=== PATIENT | male | born 1960 | race African-American/Black ===

== ENCOUNTER → 2018-10-24 | Outpatient (CLI) | payer BC ==
--- NOTE | 2018-10-24 13:35 | XCELERA REPORT ---
[address] [address] Lower Extremity Arterial Evaluation Name: SEBLE HIGH Age: 57 yrs Gender: Male : 1960 Patient Status: Preadmit Patient Location: Study Date: 10/24/2018 11:17 AM Procedure: A color flow and duplex scan of the lower extremity arteries was performed bilaterally with velocity and waveform anaylsis. Reason For Study: PAD Ordering Physician: ETHAN HILL Performed By: Sidney Jacob Measurements and Calculations Right Left MANAGER OF CONSTRUCTION PSV 166.1 169.7 cm/sec Prox PFA PSV 151.3 113.9 cm/sec Prox SFA PSV 178.5 241.3 cm/sec Mid SFA PSV -178.5 -106.2cm/sec Dist SFA PSV -103.4 -112.4cm/sec Prox Pop A PSV 135.3 102.5 cm/sec Dist DARIUS PSV 77.1 127.3 cm/sec Dist INVESTIGATIONS MANAGER PSV 101.8 126.3 cm/sec Gerson Pedis PSV 108.7 77.3 cm/sec Right Side Arterial Evaluation Normal velocity and triphasic waveforms noted from the Common Femoral artery to the infrageniculate vessels . Ankle Brachial index not done. Left Side Arterial Evaluation Normal velocity and triphasic waveforms noted from the Common Femoral artery to the infrageniculate vessels . Ankle Brachial index not done. Interpretation Summary No hemodynamically significant lesions in the bilateral lower extremities, on duplex imaging, at rest. : ETHAN HILL > Jayant Linder
== END ==
LOC: SP 10:43
PROVIDERS: ATTEND Family Medicine Geriatric Medicine
DX: I73.9 Peripheral vascular disease, unspecified (principal)
CPT/HCPCS: 93925

== ENCOUNTER 2019-01-13 21:23 | Inpatient (IN) | payer BC, OTHER ==
[2019-01-13] MEDS ORDERED: NORMAL SALINE 1000 ML 1,000 ML IV ONE ×2 (22:16→23:09)
--- NOTE | 2019-01-13 22:34 | ER Document Report ---
ED General - General Chief Complaint: Abnormal Lab Results Stated Complaint: MD REFERRAL/ABNORMAL LABS Time Seen by Provider: 01/13/19 22:15 Primary Care Provider: EHTAN BOWIE MD [Primary Care Provider] - Follow up as needed TRAVEL OUTSIDE OF THE [place] IN LAST 30 DAYS: No - HPI Notes: Patient is a 58-year-old male that presents to the emergency department for chief complaint of hypercalcemia. Patient received a phone call from Dr. Bowie that his calcium levels were high a nd he should come to the emergency room. Patient's is providing most of the HPI. She states that 01/10 they had outpatient labs performed which showed hypercalcemia, he asked for the test to be repeated on 01/11 and the message they received was that the repeat on 01/11 was also elevated. Patient does have a history of hypercalcemia in the past. He recently had 2 extended hospitalizations for ischemic stroke and has residual left-sided deficits. His states that 8 days ago patient signed out AGAINST MEDICAL ADVICE from [facility] and since being home has had decreased ambulation and effort for recovery. Currently patient reports no new symptoms. Past Medical History: Stroke, CAD, hypertension, diabetes Past Surgical History: Reviewed in chart Social History: Daily tobacco use. Denies alcohol or drug use Family History: Reviewed and noncontributory for presenting illness Allergies: Reviewed, see documented allergy list. REVIEW OF SYSTEMS: CONSTITUTIONAL : No fever No chills No diaphoresis No recent illness EENT: No vision changes No congestion No sore throat CARDIOVASCULAR: No chest pain No palpitations RESPIRATORY: No shortness of breath No cough No difficulty breathing GASTROINTESTINAL: No abdominal pain No nausea No vomiting No diarrhea GENITOURINARY: No dysuria No hematuria No difficulty urinating MUSCULOSKELETAL: No back pain No leg pain No arm pain SKIN: No rashes No lesions LYMPHATIC: No swollen, enlarged glands. NEUROLOGICAL: No lightheadedness No headache weakness No paresthesias PSYCHIATRIC: No anxiety No depression PHYSICAL EXAMINATION: Vital signs reviewed, nursing noted reviewed. GENERAL: Well-appearing, well-nourished and in no acute distress. HEAD: Atraumatic, normocephalic. EYES: Eyes appear normal, extraocular movements intact, sclera anicteric, conjunctiva are normal. ENT: nares patent, oropharynx clear without exudates. Moist mucous membranes. NECK: Normal range of motion, supple without lymphadenopathy LUNGS: Breath sounds clear to auscultation bilaterally and equal. No wheezes rales or rhonchi. HEART: Regular rate and rhythm without murmurs ABDOMEN: Soft, nontender, normoactive bowel sounds. No rebound, guarding, or rigidity. No masses appreciated. EXTREMITIES: Nontender, good range of motion, no pitting or edema. NEUROLOGICAL: Alert, normal speech, no aphasia. left upper and lower extremity weakness compared to right but still able to move against gravity and light resistance. Sensory grossly intact on exam. PSYCH: Depressed mood, flat affect. SKIN: Warm, Dry, normal turgor, no rashes or lesions noted on exposed skin - Related Data Allergies/Adverse Reactions: No Known Allergies Allergy (Unverified 01/13/19 22:38) Past Medical History - Social History Smoking Status: Current Every Day Smoker Family History: Reviewed & Not Pertinent Physical Exam - Vital signs Vitals: Temp Pulse Resp BP Pulse Ox 97.9 F 80 20 109/67 98 01/13/19 21:30 01/13/19 21:30 01/13/19 21:30 01/13/19 21:30 01/13/19 21:30 Course - Re-evaluation Re-evalutation: 01/13/19 22:33 Vitals reviewed. Nursing notes reviewed. Patient has a flat affect and is not wanting to talk much with me. His was providing most of the HPI. Patient denies any new symptoms today stating he is just here for elevated calcium levels on outpatient labs on 01/10 and 01/1101/13/19 23:47 Patient's lab work today does show hypercalcemia. His calcium today is 14. Patient started on IV fluid resuscitation. Laboratory 01/13/19 01/13/19 01/13/19 22:15 22:15 22:15 WBC 8.6 RBC 4.55 Hgb 13.9 Hct 41.3 MCV 91 MCH 30.6 MCHC 33.8 RDW 13.4 Plt Count 310 Lymph % (Auto) 26.6 [place] % (Auto) 7.7 Eos % (Auto) 1.0 Baso % (Auto) 1.5 Absolute Neuts (auto) 5.4 Absolute Lymphs (auto) 2.3 Absolute Monos (auto) 0.7 Absolute Eos (auto) 0.1 Absolute Basos (auto) 0.1 Seg Neutrophils % 63.2 Sodium 140.2 Potassium 5.0 Chloride 104 Carbon Dioxide 24 Anion Gap 12 BUN 70 H Creatinine 3.18 H Est GFR ( Amer) 24 L Est GFR (MDRD) Non-Af 20 L Glucose 129 H Calcium 14.0 H* Total Bilirubin 0.5 Direct Bilirubin 0.3 Neonat Total Bilirubin Not Reportable Neonat Direct Bilirubin Not Reportable Neonat Indirect Bili Not Reportable AST 20 ALT 17 Alkaline Phosphatase 96 Creatine Kinase 81 Troponin I 0.021 Total Protein 8.0 Albumin 4.5 Chest X-Ray 01/13/19 22:15 IMPRESSION: Negative chest copyright 2010 [employer]- All Rights Reserved Chart review shows it was 12.1 on 12/27. Patient also is in acute renal failure today. I suspect some of his renal failure and hypercalcemia is related to poor oral intake since he has not been motivated to get up or eat much. Patient will be admitted to the hospital for further medical management. His case was discussed with Dr. Sal who accepts admission. - Vital Signs Vital signs: Temp Pulse Resp BP Pulse Ox 97.9 F 80 20 109/67 95 01/13/19 21:30 01/13/19 21:30 01/13/19 21:30 01/13/19 21:30 01/13/19 22:15 - Laboratory Result Diagrams: 01/13/19 22:15 01/13/19 22:15 Laboratory results interpreted by me: 01/13/19 22:15 BUN 70 H Creatinine 3.18 H Est GFR ( Amer) 24 L Est GFR (MDRD) Non-Af 20 L Glucose 129 H Calcium 14.0 H* - EKG Interpretation by Me Additional EKG results interpreted by me: 01/13/19 22:33 Interpreted by myself [id number]: Normal sinus rhythm, rate 71, normal axis, no ectopy, new left anterior fascicular block compared to prior Discharge - Discharge Clinical Impression: Hypercalcemia Acute renal failure Qualifiers: Acute renal failure type: unspecified Qualified Code(s): N17.9 - Acute kidney failure, unspecified Condition: Stable Disposition: ADMITTED INPATIENT Admitting Provider: Doron (Hospitalist) Unit Admitted: IMCU Referrals: ETHAN BOWIE MD [Primary Care Provider] - Follow up as needed
[2019-01-13 22:36] LABS: ABSOLUTE BASOPHILS # (AUTO) 0.1 10^3/uL (0.0-0.2); ABSOLUTE EOSINOPHILS # (AUTO) 0.1 10^3/uL (0.0-0.6); ABSOLUTE LYMPHOCYTES (AUTO) 2.3 10^3/uL (0.5-4.7); ABSOLUTE MONOCYTES (AUTO) 0.7 10^3/uL (0.1-1.4); ABSOLUTE NEUT (AUTO) 5.4 10^3/uL (1.7-8.2); BASOPHILS % (AUTO) 1.5 % (0-2); HEMATOCRIT 41.3 % (37.9-51.0); HEMOGLOBIN 13.9 g/dL (13.5-17.0); LYMPHOCYTES % (AUTO) 26.6 % (13-45); MEAN CORPUSCULAR HEMOGLOBIN 30.6 pg (27.0-33.4); MEAN CORPUSCULAR HGB CONC 33.8 g/dL (32.0-36.0); MEAN CORPUSCULAR VOLUME 91 fl (80-97); MONOCYTES % (AUTO) 7.7 % (3-13); PLATELET COUNT 310 10^3/uL (150-450); RED BLOOD COUNT 4.55 10^6/uL (4.35-5.55); RED CELL DISTRIBUTION WIDTH 13.4 % (11.5-14.0); SEGMENTED NEUTROPHILS % (AUTO) 63.2 % (42-78); TOTAL CELLS COUNTED % (AUTO) 100 %; WHITE BLOOD COUNT 8.6 10^3/uL (4.0-10.5)
[2019-01-13 22:52] LABS: ALBUMIN 4.5 g/dL (3.5-5.0); ALKALINE PHOSPHATASE 96 U/L (38-126); ANION GAP 12 (5-19); ASPARTATE AMINO TRANSFERASE 20 U/L (17-59); BILIRUBIN,DIRECT 0.3 mg/dL (0.0-0.4); BILIRUBIN,TOTAL 0.5 mg/dL (0.2-1.3); BLOOD UREA NITROGEN 70 mg/dL (7-20); CARBON DIOXIDE 24 mmol/L (22-30); CHLORIDE 104 mmol/L (98-107); CREATINE KINASE 81 U/L (55-170); GLUCOSE 129 mg/dL (75-110)
--- NOTE | 2019-01-13 23:18 | RADIOLOGY REPORT (SQ) ---
EXAM DESCRIPTION: XR CHEST 1 VIEW COMPLETED DATE/TME: 01/13/2019 22:15 CLINICAL HISTORY: 58 years, Male, generalized weakness COMPARISON: None. NUMBER OF VIEWS: 1 TECHNIQUE: Portable chest LIMITATIONS: None. FINDINGS: The heart size is normal. Lungs are clear. No pneumothorax IMPRESSION: Negative chest copyright 2010 [employer]- All Rights Reserved
--- NOTE | 2019-01-14 00:15 | EKG REPORT ---
SEVERITY:- ABNORMAL ECG - SINUS RHYTHM RBBB AND LAFB : Confirmed by: Becki Sarabia MD 14-Jan-2019 00:14:42
[2019-01-14] MEDS ORDERED: MAG HYDROX/AL HYDROX/SIMETH SUSP 30 ML UDCUP PO PRN (00:59)
[2019-01-14] MEDS ORDERED: NORMAL SALINE 1000 ML 1,000 ML IV PRN (00:59)
[2019-01-14] MEDS ORDERED: MAGNESIUM HYDROXIDE SUSP 30 ML UDCUP PO PRN (00:59)
[2019-01-14] MEDS ORDERED: DEXTROSE 50%-WATER 25 GM/50 ML DISP.SYRIN IV PRN ×2 (01:12)
[2019-01-14] MEDS ORDERED: GLUCAGON,HUMAN RECOMB 1 MG INJ IM PRN (01:12)
[2019-01-14] MEDS ORDERED: DEXTROSE 40% GEL 15 GM TUBE PO PRN ×2 (01:12)
[2019-01-14] MEDS ORDERED: ACETAMINOPHEN 325 MG TABLET PO PRN ×2 (01:13→15:00)
[2019-01-14] MEDS ORDERED: BUMETANIDE INJ/PF 1 MG/4 ML SDV IV ONE (01:30)
[2019-01-14] MEDS ORDERED: CALCITONIN,SALMON,SYNTHETIC 400 UNIT/2 ML VIAL IM ONE (01:30)
[2019-01-14] MEDS ORDERED: CALCITONIN,SALMON,SYNTHETIC 400 UNIT/2 ML VIAL ONE (02:56)
--- NOTE | 2019-01-14 03:50 | PDOC H&P ---
History of Present Illness Admission Date/PCP: 01/13/19 23:53 ETHAN BOWIE MD Patient complains of: Abnormal lab work History of Present Illness: SEBLE RUTHERFORD is a 58 year old male who presented to the emergency room after finally retrieving a voice message his age from Dr. Bowie from Monday telling him that his serum calcium was too high (12.8) and he needed to come to the emergency room for treatment. He admits a history of hypercalcemia in the past. He denies associated or accompanying symptoms. He has not identified any aggravating or ameliorating factors for his hypercalcemia. In the emergency room he was found to have a calcium of 14.0 with a creatinine of 3.18 and a BUN of 70 both of which were increased over his values obtained 2 days ago showing a BUN of 21 and a creatinine of 1.29. Patient was subsequently admitted to the hospital for further evaluation and treatment. Past Medical History Cardiac Medical History: Reports: Coronary Artery Disease, Hypertension Denies: Myocardial Infarction Pulmonary Medical History: Denies: Asthma, Chronic Obstructive Pulmonary Disease (COPD) EENT Medical History: Denies: Cataracts, Ears - Hearing aids Neurological Medical History: Reports: Ischemic CVA Denies: Hemorrhagic CVA, Seizures Endocrine Medical History: Reports: Diabetes Mellitus Type 2, Obesity Denies: Diabetes Mellitus Type 1, Hyperthyroidism, Hypothyroidism Renal/ Medical History: Denies: Chronic Kidney Disease, Nephrolithiasis Malignancy Medical History: Reports: None GI Medical History: Denies: Cirrhosis, Crohn's Disease, Hepatitis, Ulcerative Colitis Musculoskeltal Medical History: Denies: Arthritis, Gout Skin Medical History: Denies: Eczema, Psoriasis Psychiatric Medical History: Reports: Tobacco Dependency Denies: Alcohol Dependency, Substance Abuse Traumatic Medical History: Reports: None Hematology: Denies: Anemia, Bleeding Tendencies Infectious Medical History: Reports: None Past Surgical History Past Surgical History: Reports: None Social History Information Source: Patient Lives with: Spouse/Significant other Smoking Status: Current Every Day Smoker Frequency of Alcohol Use: None Hx Recreational Drug Use: No Drugs: None Hx Prescription Drug Abuse: No - Advance Directive Resuscitation Status: Full Code Surrogate healthcare decision maker:: Usha Rutherford Family History Family History: DM, Hypertension. denies: CAD, Malignancy Parental Family History Reviewed: Yes Children Family History Reviewed: No Sibling(s) Family History Reviewed.: Yes Medication/Allergy Allergies/Adverse Reactions: No Known Allergies Allergy (Unverified 01/13/19 22:38) Review of Systems Constitutional: ABSENT: anorexia, chills, fever(s) Eyes: ABSENT: visual disturbances, other - Eye pain Ears: ABSENT: hearing changes, other - Ear pain Nose, Mouth, and Throat: ABSENT: mouth pain, sore throat Cardiovascular: ABSENT: chest pain, palpitations Respiratory: ABSENT: cough, dyspnea Gastrointestinal: ABSENT: abdominal pain, constipation, diarrhea, nausea, vomiting Genitourinary: ABSENT: dysuria, hematuria Musculoskeletal: ABSENT: back pain, joint swelling, muscle weakness Integumentary: ABSENT: pruritus, rash Neurological: ABSENT: confusion, convulsions, focal weakness, memory loss, syncope Psychiatric: ABSENT: anxiety, depression Endocrine: ABSENT: cold intolerance, heat intolerance Hematologic/Lymphatic: ABSENT: easy bleeding, easy bruising Allergic/Immunologic: ABSENT: seasonal rhinorrhea Physical Exam Vital Signs: Temp Pulse Resp BP Pulse Ox 97.9 F 80 20 109/67 95 01/13/19 21:30 01/13/19 21:30 01/13/19 21:30 01/13/19 21:30 01/13/19 22:15 Intake & Output 01/12/19 01/13/19 01/14/19 23:59 23:59 23:59 Weight 120.9 kg General appearance: PRESENT: no acute distress, cooperative, obese Head exam: PRESENT: atraumatic, normocephalic Eye exam: PRESENT: conjunctiva pink. ABSENT: conjunctival injection, scleral icterus Ear exam: PRESENT: normal external ear exam. ABSENT: bleeding, drainage Mouth exam: PRESENT: dry mucosa, neck supple Neck exam: ABSENT: thyromegaly, tracheal deviation Respiratory exam: PRESENT: clear to auscultation luci, symmetrical, unlabored Cardiovascular exam: PRESENT: RRR. ABSENT: clicks, gallop, rubs Pulses: PRESENT: normal radial pulses, normal dorsalis pedis pul Vascular exam: PRESENT: normal capillary refill. ABSENT: pallor GI/Abdominal exam: PRESENT: normal bowel sounds, soft Rectal exam: PRESENT: deferred Extremities exam: ABSENT: joint swelling, pedal edema, tenderness Musculoskeletal exam: ABSENT: deformity, dislocation Neurological exam: PRESENT: alert, oriented to person, oriented to place, oriented to time, oriented to situation, CN II-XII grossly intact, motor sensory deficit - Mild left hemiplegia is noted on gross exam of extremities.. Psychiatric exam: PRESENT: appropriate affect, normal mood Skin exam: PRESENT: dry, intact, warm. ABSENT: jaundice, rash, urticaria Results Laboratory Results: 01/13/19 22:15 01/13/19 22:15 01/13/19 01/13/19 22:15 22:15 WBC 8.6 RBC 4.55 Hgb 13.9 Hct 41.3 MCV 91 MCH 30.6 MCHC 33.8 RDW 13.4 Plt Count 310 Seg Neutrophils % 63.2 Sodium 140.2 Potassium 5.0 Chloride 104 Carbon Dioxide 24 Anion Gap 12 BUN 70 H Creatinine 3.18 H Est GFR ( Amer) 24 L Glucose 129 H Calcium 14.0 H* Total Bilirubin 0.5 AST 20 Alkaline Phosphatase 96 Total Protein 8.0 Albumin 4.5 01/13/19 01/13/19 22:15 22:15 Creatine Kinase 81 Troponin I 0.021 Impressions: Chest X-Ray 01/13/19 22:15 IMPRESSION: Negative chest copyright 2011 [employer]- All Rights Reserved Assessment and Plan - Diagnosis (1) Hypercalcemia Is this a current diagnosis for this admission?: Yes Plan: Patient will be treated with IV fluids utilizing normal saline, diuretics uti lizing Bumex, calcitonin administered intravenously at 4 units per kilogram and due to severe acute renal failure biphosphonate's would not be used, however denosumab will be used if available. Patient will have metabolic profiles performed every 6 hours and will be reassessed for further therapy ongoing. (2) Acute renal failure Qualifiers: Acute renal failure type: unspecified Qualified Code(s): N17.9 - Acute kidney failure, unspecified Is this a current diagnosis for this admission?: Yes Plan: Patient will be treated with IV fluids and will be given Bumex IV. He will also be treated by addressing his hypercalcemia which is the presumable cause of the renal failure. His metabolic profile be monitored every 6 hours and further intervention will be undertaken as appropriate. (3) Diabetes mellitus type 2 in obese Is this a current diagnosis for this admission?: Yes Plan: Patient will be continued on his current diabetic regiment and diabetic diet. Before meals and at bedtime Accu-Cheks will be performed with hyperglycemia being treated with sliding scale insulin and hypoglycemia being treated with the hypoglycemic protocol. (4) HTN (hypertension) Qualifiers: Hypertension type: essential hypertension Qualified Code(s): I10 - Essential (primary) hypertension Is this a current diagnosis for this admission?: Yes Plan: Patient's blood pressure be monitored closely throughout his hospital course and he will be continued with the portions of his antihypertensive regiment that do not potentially cause hypercalcemia with adjustments made as required. (5) CAD (coronary artery disease) Qualifiers: Coronary Disease-Associated Artery/Lesion type: al[place]q artery [place] vs. transplanted heart: alutiiq heart Associated angina: without angina Qualified Code(s): I25.10 - Atherosclerotic heart disease of alutiiq coronary artery without angina pectoris Is this a current diagnosis for this admission?: Yes Plan: Patient be continued on his usual cardiac regimen and a cardiac diet. He will be telemetry monitored throughout his hospital course. - Time Time Spent with patient: 25-34 minutes Medications reviewed and adjusted accordingly: Yes Anticipated discharge: Home - Inpatient Certification Based on my medical assessment, after consideration of the patient's comorbidities, presenting symptoms, or acuity I expect that the services needed warrant INPATIENT care.: Yes I certify that my determination is in accordance with my understanding of Medicare's requirements for reasonable and necessary INPATIENT services [42 CFR 412.3e].: Yes Medical Necessity: Need Close Monitoring Due to Risk of Patient Decompensation, Need For IV Fluids, Need For Continuous Telemetry Monitoring, Need for Neurologi zohaib Checks, Risk of Complication if Not Cared For in Hospital, Risk of Diagnosis Which Will Require Inpatient Eval/Care/Monitoring
[2019-01-14] MEDS: HEPARIN SOD (PORCINE) 5,000 UNIT/ML 1 ML VIAL SUBCUT SCH ×3 (06:11→21:16)
[2019-01-14] MEDS: PANTOPRAZOLE SODIUM 40 MG TABLET.DR PO SCH (06:16)
[2019-01-14 06:22] LABS: APPEARANCE,URINE CLEAR; BILIRUBIN,URINE NEGATIVE (NEGATIVE); COLOR,URINE COLORLESS; GLUCOSE, URINE NEGATIVE (NEGATIVE); KETONES,URINE NEGATIVE (NEGATIVE); LEUKOCYTE ESTERASE,URINE NEGATIVE (NEGATIVE); NITRITE,URINE NEGATIVE (NEGATIVE); PROTEIN,URINE NEGATIVE (NEGATIVE); URINE SPECIFIC GRAVITY 1.005; UROBILINOGEN,URINE NEGATIVE mg/dL (<2.0)
[2019-01-14 07:03] LABS: HEMATOCRIT 44.6 % (37.9-51.0); HEMOGLOBIN 14.9 g/dL (13.5-17.0); MEAN CORPUSCULAR HGB CONC 33.3 g/dL (32.0-36.0); MEAN CORPUSCULAR VOLUME 90 fl (80-97); PLATELET COUNT 270 10^3/uL (150-450); RED BLOOD COUNT 4.96 10^6/uL (4.35-5.55); RED CELL DISTRIBUTION WIDTH 13.5 % (11.5-14.0); WHITE BLOOD COUNT 7.7 10^3/uL (4.0-10.5)
--- NOTE | 2019-01-14 07:15 | EKG REPORT ---
SEVERITY:- ABNORMAL ECG - SINUS RHYTHM NONSPECIFIC INTRAVENTRICULAR CONDUCTION DELAY CRBBB NO OH PROLONGATION, NO QT SHORTENING. CONVEX ST ELEVATION ANTEROLATERAL LEADS NOTED,?ACUTE, CLINICAL CORRELATION NEEDED. : Confirmed by: Dany Cade MD 14-Jan-2019 07:14:25
[2019-01-14 07:28] LABS: ANION GAP 13 (5-19); BLOOD UREA NITROGEN 61 mg/dL (7-20); CARBON DIOXIDE 23 mmol/L (22-30); CHLORIDE 108 mmol/L (98-107); GLUCOSE 125 mg/dL (75-110); POTASSIUM 4.3 mmol/L (3.6-5.0)
[2019-01-14 07:44] LABS: CALCIUM 13.8 mg/dL (8.4-10.2)
[2019-01-14] MEDS: INSULIN REG, HUMAN 100 UNIT/ML 3 ML VIAL (PYX) SUBCUT SCH ×4 (08:16→21:11)
[2019-01-14] MEDS: DOCUSATE SODIUM 100 MG CAPSULE PO SCH ×2 (09:14→17:51)
[2019-01-14] MEDS ORDERED: ZOLEDRONIC ACID 5 MG/100 ML BOTTLE IV ONE (11:24)
[2019-01-14] MEDS ORDERED: ZOLEDRONIC ACID 4 MG/100 ML RTU IV ONE (12:00)
[2019-01-14] MEDS: NORMAL SALINE 1000 ML 1,000 ML IV PRN (13:04)
[2019-01-14 13:20] LABS: ANION GAP 12 (5-19); BLOOD UREA NITROGEN 57 mg/dL (7-20); CARBON DIOXIDE 23 mmol/L (22-30); CHLORIDE 107 mmol/L (98-107); GLUCOSE 128 mg/dL (75-110); POTASSIUM 4.7 mmol/L (3.6-5.0)
[2019-01-14 14:02] LABS: CALCIUM 13.6 mg/dL (8.4-10.2)
[2019-01-14] MEDS ORDERED: HALOPERIDOL LACTATE INJ 5 MG/1 ML VIAL ONE (14:44)
[2019-01-14] MEDS ORDERED: HALOPERIDOL LACTATE INJ 5 MG/1 ML VIAL IV ONE (15:45)
[2019-01-14] MEDS ORDERED: (PENDING PHARMACY ID) (Lisinopril/Hydrochlorothiazide [Lisinopril-Hctz 20-25 Mg Tab] 1 EAC PO SCH (17:00)
--- NOTE | 2019-01-14 17:01 | PDOC PROGRESS REPORT ---
Subjective Progress Note for:: 01/14/19 Subjective:: This is 58 years old black male patient with past medical history of coronary artery disease, hypertension, hyperlipidemia, morbid obesity, type 2 diabetes mellitus, tobacco dependence referred from his primary care physician office of Dr. Bowie for hyperglycemia of 12.8. When patient checks at ER his calcium level is found to be 13.8. Of note patient recently discharged from this hospital after he suffered an acute ischemic stroke. Patient has been managed with aggressive hydration and IV diuretics. His latest calcium is 13.6. Reason For Visit: HYPERCALCEMIA Physical Exam Vital Signs: Temp Pulse Resp BP Pulse Ox 97.5 F 64 16 136/111 H 97 01/14/19 16:02 01/14/19 16:02 01/14/19 16:02 01/14/19 16:02 01/14/19 16:02 Intake & Output 01/13/19 01/14/19 01/15/19 06:59 06:59 06:59 Intake Total 360 Output Total 1000 900 Balance -1000 -540 Weight 123.8 kg General appearance: PRESENT: no acute distress Head exam: PRESENT: atraumatic Eye exam: PRESENT: conjunctiva pink Neck exam: ABSENT: carotid bruit, JVD, lymphadenopathy, thyromegaly Respiratory exam: PRESENT: clear to auscultation luci. ABSENT: rales, rhonchi, wheezes Cardiovascular exam: PRESENT: RRR. ABSENT: diastolic murmur, rubs, systolic murmur Neurological exam: PRESENT: alert, altered, awake Results Laboratory Results: 01/14/19 06:46 01/14/19 12:49 01/13/19 01/13/19 01/14/19 22:15 22:15 06:00 WBC 8.6 RBC 4.55 Hgb 13.9 Hct 41.3 MCV 91 MCH 30.6 MCHC 33.8 RDW 13.4 Plt Count 310 Seg Neutrophils % 63.2 Sodium 140.2 Potassium 5.0 Chloride 104 Carbon Dioxide 24 Anion Gap 12 BUN 70 H Creatinine 3.18 H Est GFR ( Amer) 24 L Glucose 129 H Calcium 14.0 H* Magnesium Total Bilirubin 0.5 AST 20 Alkaline Phosphatase 96 Total Protein 8.0 Albumin 4.5 Urine Color COLORLESS Urine Appearance CLEAR Urine pH 5.0 Ur Specific [place] 1.005 Urine Protein NEGATIVE Urine Glucose (UA) NEGATIVE Urine Ketones NEGATIVE Urine Blood SMALL H Urine Nitrite NEGATIVE Ur Leukocyte Esterase NEGATIVE Urine WBC (Auto) 1 Urine RBC (Auto) 11 01/14/19 01/14/19 01/14/19 06:46 06:46 12:49 WBC 7.7 RBC 4.96 Hgb 14.9 Hct 44.6 MCV 90 MCH 30.0 MCHC 33.3 RDW 13.5 Plt Count 270 Seg Neutrophils % Sodium 144.2 142.0 Potassium 4.3 4.7 Chloride 108 H 107 Carbon Dioxide 23 23 Anion Gap 13 12 BUN 61 H 57 H Creatinine 2.56 H 2.13 H Est GFR ( Amer) 31 L 39 L Glucose 125 H 128 H Calcium 13.8 H* 13.6 H* Magnesium 2.0 Total Bilirubin AST Alkaline Phosphatase Total Protein Albumin Urine Color Urine Appearance Urine pH Ur Specific [place] Urine Protein Urine Glucose (UA) Urine Ketones Urine Blood Urine Nitrite Ur Leukocyte Esterase Urine WBC (Auto) Urine RBC (Auto) 01/13/19 01/13/19 01/14/19 22:15 22:15 02:20 Creatine Kinase 81 Troponin I 0.021 0.019 Impressions: Chest X-Ray 01/13/19 22:15 IMPRESSION: Negative chest copyright 2011 [employer]- All Rights Reserved Assessment and Plan - Diagnosis (1) Acute metabolic encephalopathy Is this a current diagnosis for this admission?: Yes Plan: Due to #2 (2) Severe hypercalcemia Is this a current diagnosis for this admission?: Yes Plan: Etiology unclear. He may have parathyroid adenoma, multiple myeloma or other malignancy. PTH intact and PTH related protein requested. Ultrasound of the parathyroid will be requested. (3) Acute kidney injury Is this a current diagnosis for this admission?: Yes Plan: Patient is being hydrated aggressively. Will monitor his kidney function. (4) Type 2 diabetes mellitus Is this a current diagnosis for this admission?: Yes Plan: Continue sliding scale and metformin. (5) Hypertension Qualifiers: Hypertension type: essential hypertension Qualified Code(s): I10 - Essential (primary) hypertension Is this a current diagnosis for this admission?: Yes Plan: Continue his home medication (6) Morbid obesity with BMI of 40.0-44.9, adult Is this a current diagnosis for this admission?: Yes Plan: Lifestyle modification advised
[2019-01-14] MEDS: AMLODIPINE BESYLATE 10 MG TABLET PO SCH (17:52)
[2019-01-14] MEDS: CLOPIDOGREL BISULFATE 75 MG TABLET PO SCH (17:52)
[2019-01-14] MEDS ORDERED: HYDROCHLOROTHIAZIDE 25 MG TABLET PO SCH (18:00)
[2019-01-14] MEDS ORDERED: LISINOPRIL 10 MG TABLET PO SCH (18:00)
[2019-01-14] MEDS: ASPIRIN 81 MG TABLET, ENT COATED PO SCH (18:04)
[2019-01-14 19:01] LABS: ANION GAP 13 (5-19); BLOOD UREA NITROGEN 48 mg/dL (7-20); CARBON DIOXIDE 23 mmol/L (22-30); CHLORIDE 108 mmol/L (98-107); GLUCOSE 119 mg/dL (75-110); POTASSIUM 4.6 mmol/L (3.6-5.0)
[2019-01-14 19:14] LABS: CALCIUM 13.5 mg/dL (8.4-10.2)
[2019-01-14] MEDS: CARVEDILOL 12.5 MG TABLET PO SCH (21:16)
[2019-01-14] MEDS: BUMETANIDE INJ/PF 1 MG/4 ML SDV IV SCH (21:16)
[2019-01-14] MEDS: ATORVASTATIN CALCIUM 80 MG TABLET PO SCH (21:17)
[2019-01-14] MEDS ORDERED: (PENDING PHARMACY ID) (Carvedilol [Coreg 25 Mg Tablet] 1 TAB) PO SCH (22:00)
[2019-01-15 01:20] LABS: ANION GAP 5 (5-19); BLOOD UREA NITROGEN 42 mg/dL (7-20); CARBON DIOXIDE 27 mmol/L (22-30); CHLORIDE 111 mmol/L (98-107); GLUCOSE 139 mg/dL (75-110); POTASSIUM 3.8 mmol/L (3.6-5.0)
[2019-01-15 01:28] LABS: CALCIUM 12.3 mg/dL (8.4-10.2)
[2019-01-15] MEDS: BUMETANIDE INJ/PF 1 MG/4 ML SDV IV SCH ×4 (04:52→22:02)
--- NOTE | 2019-01-15 07:07 | EKG REPORT ---
SEVERITY:- ABNORMAL ECG - SINUS RHYTHM NONSPECIFIC IVCD WITH LAD CRBBB COMPATIBLE WITH HYPERCALCEMIA = SHORTEN QT, PROLONG QRS. : Confirmed by: Dany Cade MD 15-Jan-2019 07:06:58
[2019-01-15 07:15] LABS: HEMATOCRIT 41.7 % (37.9-51.0); MEAN CORPUSCULAR HEMOGLOBIN 30.3 pg (27.0-33.4); MEAN CORPUSCULAR HGB CONC 33.5 g/dL (32.0-36.0); MEAN CORPUSCULAR VOLUME 90 fl (80-97); PLATELET COUNT 275 10^3/uL (150-450); RED BLOOD COUNT 4.62 10^6/uL (4.35-5.55); RED CELL DISTRIBUTION WIDTH 13.4 % (11.5-14.0); WHITE BLOOD COUNT 6.5 10^3/uL (4.0-10.5)
[2019-01-15 07:36] LABS: ANION GAP 8 (5-19); BLOOD UREA NITROGEN 39 mg/dL (7-20); CARBON DIOXIDE 25 mmol/L (22-30); CHLORIDE 111 mmol/L (98-107); GLUCOSE 136 mg/dL (75-110); POTASSIUM 3.9 mmol/L (3.6-5.0)
[2019-01-15 07:55] LABS: CALCIUM 12.4 mg/dL (8.4-10.2)
[2019-01-15] MEDS: HEPARIN SOD (PORCINE) 5,000 UNIT/ML 1 ML VIAL SUBCUT SCH ×3 (09:55→22:03)
[2019-01-15] MEDS: AMLODIPINE BESYLATE 10 MG TABLET PO SCH (10:08)
[2019-01-15] MEDS: CLOPIDOGREL BISULFATE 75 MG TABLET PO SCH (10:08)
[2019-01-15] MEDS: CARVEDILOL 12.5 MG TABLET PO SCH ×2 (10:08→22:02)
[2019-01-15] MEDS: DOCUSATE SODIUM 100 MG CAPSULE PO SCH ×2 (10:08→18:14)
[2019-01-15] MEDS: ASPIRIN 81 MG TABLET, ENT COATED PO SCH (10:08)
[2019-01-15] MEDS: INSULIN REG, HUMAN 100 UNIT/ML 3 ML VIAL (PYX) SUBCUT SCH ×4 (10:09→22:04)
[2019-01-15] MEDS: PANTOPRAZOLE SODIUM 40 MG TABLET.DR PO SCH (10:09)
[2019-01-15] MEDS: ALPRAZOLAM 0.5 MG TABLET PO SCH ×2 (14:07→22:04)
[2019-01-15 14:33] LABS: ANION GAP 10 (5-19); BLOOD UREA NITROGEN 35 mg/dL (7-20); CARBON DIOXIDE 25 mmol/L (22-30); CHLORIDE 109 mmol/L (98-107); GLUCOSE 178 mg/dL (75-110); POTASSIUM 3.8 mmol/L (3.6-5.0)
[2019-01-15 14:42] LABS: CALCIUM 12.3 mg/dL (8.4-10.2)
--- NOTE | 2019-01-15 16:14 | PDOC PROGRESS REPORT ---
Subjective Progress Note for:: 01/15/19 Subjective:: This is 58 years old black male patient with past medical history of coronary artery disease, hypertension, hyperlipidemia, morbid obesity, type 2 diabetes mellitus, tobacco dependence referred from his primary care physician office of Dr. Bowie for hyperglycemia of 12.8. When patient checks at ER his calcium level is found to be 13.8. Of note patient recently discharged from this hospital after he suffered an acute ischemic stroke. Patient has been managed with aggressive hydration and IV diuretics. His latest calcium is 13.6. 01/15/2019: Patient still confused and sometimes combative. His latest calcium level is 12.8. He is being aggressively hydrated and is also on diuretics. Ultrasound of the neck is requested for possible solitary parathyroid adenoma. His PTH is elevated and PTH related protein is pending. Reason For Visit: HYPERCALCEMIA Physical Exam Vital Signs: Temp Pulse Resp BP Pulse Ox 98.1 F 70 18 138/76 H 98 01/15/19 15:38 01/15/19 15:38 01/15/19 15:38 01/15/19 15:38 01/15/19 15:38 Intake & Output 01/14/19 01/15/19 01/16/19 06:59 06:59 06:59 Intake Total 480 Output Total 1000 1150 1500 Balance -1000 -670 -1500 Weight 123.8 kg 121.5 kg Results Laboratory Results: 01/15/19 07:00 01/15/19 13:56 01/14/19 01/15/19 01/15/19 18:02 00:42 07:00 WBC 6.5 RBC 4.62 Hgb 14.0 Hct 41.7 MCV 90 MCH 30.3 MCHC 33.5 RDW 13.4 Plt Count 275 Sodium 143.5 143.4 Potassium 4.6 3.8 Chloride 108 H 111 H Carbon Dioxide 23 27 Anion Gap 13 5 BUN 48 H 42 H Creatinine 1.92 H 1.95 H Est GFR ( Amer) 44 L 43 L Glucose 119 H 139 H Calcium 13.5 H* 12.3 H* Magnesium PTH Intact 01/15/19 01/15/19 01/15/19 07:00 07:00 13:56 WBC RBC Hgb Hct MCV MCH MCHC RDW Plt Count Sodium 144.0 144.0 Potassium 3.9 3.8 Chloride 111 H 109 H Carbon Dioxide 25 25 Anion Gap 8 10 BUN 39 H 35 H Creatinine 1.87 H 1.81 H Est GFR ( Amer) 45 L 47 L Glucose 136 H 178 H Calcium 12.4 H* 12.3 H* Magnesium 1.8 PTH Intact 82.5 H 01/13/19 01/13/19 01/14/19 22:15 22:15 02:20 Creatine Kinase 81 Troponin I 0.021 0.019 Impressions: Chest X-Ray 01/13/19 22:15 IMPRESSION: Negative chest copyright 2011 [employer]- All Rights Reserved Assessment and Plan - Diagnosis (1) Acute metabolic encephalopathy Is this a current diagnosis for this admission?: Yes Plan: Due to #2. Patient still confused and sometimes combative. (2) Severe hypercalcemia Is this a current diagnosis for this admission?: Yes Plan: Etiology unclear. He may have parathyroid adenoma, multiple myeloma or other malignancy. PTH intact and PTH related protein requested. Ultrasound of the parathyroid requested. His PTH level is 82.5 which indicates probably his hyperglycemia is PTH mediated. If neck ultrasound is positive for parathyroid adenoma surgical excision is a definitive management. (3) Acute kidney injury Is this a current diagnosis for this admission?: Yes Plan: Has be resolving (4) Type 2 diabetes mellitus Is this a current diagnosis for this admission?: Yes Plan: Continue sliding scale and metformin. (5) Hypertension Qualifiers: Hypertension type: essential hypertension Qualified Code(s): I10 - Essential (primary) hypertension Is this a current diagnosis for this admission?: Yes Plan: Continue his home medication (6) Morbid obesity with BMI of 40.0-44.9, adult Is this a current diagnosis for this admission?: Yes Plan: Lifestyle modification advised
--- NOTE | 2019-01-15 17:41 | PDOC CONSULTATION ---
Consultation Consult Date: 01/15/19 Provider Consulted: Jose D XIE Consult reason:: STU and hypercalcemia History of Present Illness Admission Date/PCP: 01/13/19 23:53 ETHAN BOWIE MD History of Present Illness: SEBLE HIGH is a 58 year old male with a past medical history of chronic hypertension not so well controlled, prediabetes on metformin and hyperlipidemia was admitted with a history of becoming progressively weak with altered mental status associated with severe hypercalcemia of close to 13 along with STU with a creatinine of 3.1. The patient is at the bedside who is the main historian. Apparently the patient was recently admitted and transferred to [facility] where he was found to have similar issues. Apparently a CT scan done over there so that he he had multiple TIAs according to the patient's . She is not sure for the cause of her hypercalcemia that has been worked up over there. However patient requested being discharged before he was ready to be discharge according to the . Patient came home and was sleeping most of the times. In between he was found to be weak. There is no history of any witnessed seizure or focal deficit.No history of any preceding febrile illness in the month of November preceding his first admission in first part of December. Couple of days prior to his admission he began to show more features of lethargy and weakness with occasional falls. Patient was not able to communicate if anything serious was going on to his . They saw Dr. Bowie who is his primary care and the labs came back showing STU alongwith a calcium of 13 and he asked the patient to be admitted for further evaluations and management. Currently the patient has become more awake and responsive according to his . He is bedbound and getting precautions against any falls. Patient is awake and alert and oriented x2 only. He still has difficulty in remembering past events according to his . Patient is awake and cheerful and answering questions which may not be always right. He denies any specific complaints of any headaches, chest pain or shortness of breath or focal deficits. He admits to the fact along with his that he is intake was very poor over the week between discharge from [facility] and his admission here. Labs and medications were reviewed. Past Medical History Cardiac Medical History: Reports: Coronary Artery Disease, Hypertension-primary Denies: Myocardial Infarction Pulmonary Medical History: Denies: Asthma, Chronic Obstructive Pulmonary Disease (COPD) EENT Medical History: Denies: Cataracts, Ears - Hearing aids Neurological Medical History: Reports: Ischemic CVA Denies: Hemorrhagic CVA, Seizures Endocrine Medical History: Reports: Diabetes Mellitus Type 2, Obesity Denies: Diabetes Mellitus Type 1, Hyperthyroidism, Hypothyroidism Complications of Diabetes: Reports: None Renal/ Medical History: Denies: Nephrolithiasis Malignancy Medical History: Reports: None GI Medical History: Denies: Cirrhosis, Crohn's Disease, Hepatitis, Ulcerative Colitis Musculoskeltal Medical History: Denies: Arthritis, Gout Skin Medical History: Denies: Eczema, Psoriasis Psychiatric Medical History: Reports: Tobacco Dependency Denies: Alcohol Dependency, Substance Abuse Traumatic Medical History: Reports: None Infectious Medical History: Reports: None Past Surgical History Past Surgical History: Reports: None Social History Lives with: Spouse/Significant other Smoking Status: Current Every Day Smoker Cigarettes Packs Per Day: 1 Number of Years Smokin Last Time Smoked: y Frequency of Alcohol Use: None Hx Recreational Drug Use: No Drugs: None Hx Prescription Drug Abuse: No - Advance Directive Resuscitation Status: Full Code Family History Parental Family History Reviewed: Yes - Denies any history of ESRD. Children Family History Reviewed: No Sibling(s) Family History Reviewed.: No Medication/Allergy Home Medications: Amlodipine Besylate [Norvasc 10 mg Tablet] 10 mg PO DAILY 01/14/19 Aspirin [Ecotrin 81 mg EC Tablet] 81 mg PO DAILY 01/14/19 Atorvastatin Calcium [Lipitor 80 mg Tablet] 80 mg PO QHS 01/14/19 Carvedilol [Coreg 25 mg Tablet] 1 tab PO Q12 01/14/19 Clopidogrel Bisulfate [Plavix 75 mg Tablet] 75 mg PO DAILY 01/14/19 Lisinopril/Hydrochlorothiazide [Lisinopril-Hctz 20-25 mg Tab] 1 each PO DAILY 01/14/19 Allergies/Adverse Reactions: No Known Allergies Allergy (Unverified 01/13/19 22:38) Review of Systems Constitutional: PRESENT: anorexia, fatigue, weakness. ABSENT: chills, fever(s), headache(s), night sweats Nose, Mouth, and Throat: ABSENT: mouth pain, sore throat Cardiovascular: ABSENT: chest pain, dyspnea on exertion, edema, orthropnea, palpitations Respiratory: ABSENT: dyspnea, hemoptysis Gastrointestinal: ABSENT: abdominal pain, bloating, coffee ground emesis, constipation, diarrhea, dysphagia, heartburn, hematemesis, hematochezia, nausea, vomiting Genitourinary: ABSENT: dysuria, hematuria Musculoskeletal: ABSENT: back pain, deformity, joint swelling Neurological: PRESENT: confusion, frequent falls, memory loss. ABSENT: abnormal gait, abnormal movements, abnormal speech, convulsions, focal weakness, paresthesias Endocrine: ABSENT: heat intolerance, polydipsia Hematologic/Lymphatic: ABSENT: easy bleeding, easy bruising, lymphadenopathy Physical Exam Vital Signs: Temp Pulse Resp BP Pulse Ox 98.1 F 70 18 138/76 H 98 01/15/19 15:38 01/15/19 15:38 01/15/19 15:38 01/15/19 15:38 01/15/19 15:38 Intake & Output 01/14/19 01/15/19 01/16/19 06:59 06:59 06:59 Intake Total 480 Output Total 1000 1150 1500 Balance -1000 -670 -1500 Weight 123.8 kg 121.5 kg General appearance: PRESENT: no acute distress, obese Eye exam: PRESENT: EOMI, PERRLA. ABSENT: periorbital swelling, scleral icterus Mouth exam: PRESENT: moist, neck supple Neck exam: ABSENT: lymphadenopathy, meningismus, tenderness, thyromegaly, tra cheal deviation Respiratory exam: PRESENT: chest wall tenderness, clear to auscultation luci. ABSENT: crackles Cardiovascular exam: PRESENT: +S1, +S2 GI/Abdominal exam: PRESENT: normal bowel sounds, soft. ABSENT: organomegaly, tenderness Extremities exam: ABSENT: pedal edema Neurological exam: PRESENT: alert, awake, oriented to person, oriented to place. ABSENT: oriented to time, oriented to situation, aphasic Psychiatric exam: PRESENT: appropriate affect Skin exam: PRESENT: dry. ABSENT: erythema, mottled, normal color, rash Results Laboratory Results: 01/15/19 07:00 01/15/19 13:56 01/14/19 01/15/19 01/15/19 18:02 00:42 07:00 WBC 6.5 RBC 4.62 Hgb 14.0 Hct 41.7 MCV 90 MCH 30.3 MCHC 33.5 RDW 13.4 Plt Count 275 Sodium 143.5 143.4 Potassium 4.6 3.8 Chloride 108 H 111 H Carbon Dioxide 23 27 Anion Gap 13 5 BUN 48 H 42 H Creatinine 1.92 H 1.95 H Est GFR ( Amer) 44 L 43 L Glucose 119 H 139 H Calcium 13.5 H* 12.3 H* Magnesium PTH Intact 01/15/19 01/15/19 01/15/19 07:00 07:00 13:56 WBC RBC Hgb Hct MCV MCH MCHC RDW Plt Count Sodium 144.0 144.0 Potassium 3.9 3.8 Chloride 111 H 109 H Carbon Dioxide 25 25 Anion Gap 8 10 BUN 39 H 35 H Creatinine 1.87 H 1.81 H Est GFR ( Amer) 45 L 47 L Glucose 136 H 178 H Calcium 12.4 H* 12.3 H* Magnesium 1.8 PTH Intact 82.5 H 01/13/19 01/13/19 01/14/19 22:15 22:15 02:20 Creatine Kinase 81 Troponin I 0.021 0.019 Impressions: Chest X-Ray 01/13/19 22:15 IMPRESSION: Negative chest copyright 2011 [employer]- All Rights Reserved Assessment & Plan - Diagnosis (1) Severe hypercalcemia Is this a current diagnosis for this admission?: Yes Plan: His PTH is just slightly above normal. PTH related peptide is pending. He is not anemic. TSH unsure and I will order those labs. His alkaline phosphatase is normal. In spite of that we will still order a PSA and other relevant labs because of malignancy induced hypercalcemia/paraneoplastic syndrome would have to be thought off. He has so far not shown any response to vigorous hydration. He has received IV calcitonin.Continue on vigorous fluid hydration as clinically he is still looks dry. (2) Acute kidney injury Is this a current diagnosis for this admission?: Yes Plan: Clinically he looks prerenal and dehydrated. We will continue on IV fluid resuscitation as his renal numbers are improving. Get further studies and a renal ultrasound. (3) Acute metabolic encephalopathy Is this a current diagnosis for this admission?: Yes Plan: Severe hypercalcemia could have been a cause for his altered mental status. However there is a history of multiple TIAs as per the patient's on CT scan done at [facility]. Apparently has had work-up done for his TIA including carotid ultrasounds according to his . It will be helpful to obtain those results from [facility]. (4) Diabetes mellitus type 2 in obese Is this a current diagnosis for this admission?: Yes Plan: Was on metformin and now on sliding scale. (5) HTN (hypertension) Qualifiers: Hypertension type: essential hypertension Qualified Code(s): I10 - Essential (primary) hypertension Is this a current diagnosis for this admission?: Yes Plan: Currently controlled. Has a history of not very well controlled in the past. That could have been a cause for his multiple TIA.
[2019-01-15] MEDS: METFORMIN HCL 500 MG TABLET PO SCH (18:13)
--- NOTE | 2019-01-15 18:41 | RADIOLOGY REPORT (SQ) ---
EXAM DESCRIPTION: U/S RETROPERITON LTD COMPLETED DATE/TIME: 01/15/2019 6:29 pm REASON FOR STUDY: STU COMPARISON: None. TECHNIQUE: Dynamic and static grayscale images acquired of the kidneys and bladder and recorded on P ACS. Additional selected color Doppler and spectral images recorded. LIMITATIONS: None. FINDINGS: RIGHT KIDNEY: The right kidney measures 11.5 cm in length. Echogenicity is mildly incre ased. No solid or suspicious masses. No hydronephrosis. No calcifications. LEFT KIDNEY: The left kidney measures 11.8 cm in length. Echogenicity is mildly increased. No so lid or suspicious masses. No hydronephrosis. There is a simple 2.7 x 2.9 x 3.1 cm cyst. No calci fications. BLADDER: No masses. OTHER FINDINGS: No other significant finding. IMPRESSION: Both kidneys demonstrate increased echogenicity consistent with medical renal disease. Left renal cyst. TECHNICAL DOCUMENTATION: JOB ID: [id number] [employer]- All Rights Reserved Reading location - IP/workstation name: [email or web address]
--- NOTE | 2019-01-15 18:43 | RADIOLOGY REPORT (SQ) ---
EXAM DESCRIPTION: U/S THYROID/SFT TISS HD NECK COMPLETED DATE/TIME: 01/15/2019 6:29 pm REASON FOR STUDY: Hypercalcemia R/O Parathroid adenoma COMPARISON: None. TECHNIQUE: Dynamic and static evans-scale images acquired of the thyroid gland. Selected additional c olor/power Doppler images recorded. All images stored to PACS. LIMITATIONS: None. FINDINGS: RIGHT LOBE: Normal size. Homogeneous echotexture. No cystic or solid masses. LEFT LOBE: Normal size. Homogeneous echotexture. No cystic or solid masses. ISTHMUS: Normal size. Homogeneous echotexture. No cystic or solid masses. OTHER: No parathyroid nodules are identified. IMPRESSION: NORMAL THYROID ULTRASOUND. TECHNICAL DOCUMENTATION: JOB ID: [id number] [employer]- All Rights Reserved Reading location - IP/workstation name: [email or web address]
[2019-01-15] MEDS: HALOPERIDOL LACTATE INJ 5 MG/1 ML VIAL IV PRN (20:18)
[2019-01-15] MEDS ORDERED: OLANZAPINE 5 MG TABLET PO SCH (22:00)
[2019-01-15] MEDS: ATORVASTATIN CALCIUM 80 MG TABLET PO SCH (22:02)
[2019-01-16] MEDS: BUMETANIDE INJ/PF 1 MG/4 ML SDV IV SCH ×2 (02:19→09:14)
[2019-01-16 06:00] LABS: HEMATOCRIT 40.1 % (37.9-51.0); HEMOGLOBIN 13.7 g/dL (13.5-17.0); MEAN CORPUSCULAR HEMOGLOBIN 30.3 pg (27.0-33.4); MEAN CORPUSCULAR HGB CONC 34.1 g/dL (32.0-36.0); MEAN CORPUSCULAR VOLUME 89 fl (80-97); PLATELET COUNT 251 10^3/uL (150-450); RED BLOOD COUNT 4.52 10^6/uL (4.35-5.55); RED CELL DISTRIBUTION WIDTH 13.4 % (11.5-14.0); WHITE BLOOD COUNT 7.4 10^3/uL (4.0-10.5)
[2019-01-16 06:18] LABS: ANION GAP 13 (5-19); BLOOD UREA NITROGEN 32 mg/dL (7-20); CALCIUM 11.8 mg/dL (8.4-10.2); CARBON DIOXIDE 23 mmol/L (22-30); CHLORIDE 106 mmol/L (98-107); GLUCOSE 113 mg/dL (75-110); PHOSPHORUS 2.1 mg/dL (2.5-4.5); POTASSIUM 3.8 mmol/L (3.6-5.0)
[2019-01-16] MEDS: HEPARIN SOD (PORCINE) 5,000 UNIT/ML 1 ML VIAL SUBCUT SCH ×3 (07:06→21:25)
[2019-01-16] MEDS: PANTOPRAZOLE SODIUM 40 MG TABLET.DR PO SCH (07:07)
--- NOTE | 2019-01-16 07:11 | EKG REPORT ---
SEVERITY:- ABNORMAL ECG - ACCELERATED JUNCTIONAL RHYTHM RBBB AND LPFB : Confirmed by: Dany Cade MD 16-Jan-2019 07:10:16
[2019-01-16] MEDS: ALPRAZOLAM 0.5 MG TABLET PO SCH (08:54)
[2019-01-16] MEDS: CARVEDILOL 12.5 MG TABLET PO SCH ×2 (09:11→21:25)
[2019-01-16] MEDS: INSULIN REG, HUMAN 100 UNIT/ML 3 ML VIAL (PYX) SUBCUT SCH ×4 (09:11→21:26)
[2019-01-16] MEDS: AMLODIPINE BESYLATE 10 MG TABLET PO SCH (09:12)
[2019-01-16] MEDS: CLOPIDOGREL BISULFATE 75 MG TABLET PO SCH (09:15)
[2019-01-16] MEDS: METFORMIN HCL 500 MG TABLET PO SCH (09:15)
[2019-01-16] MEDS: ASPIRIN 81 MG TABLET, ENT COATED PO SCH (09:15)
[2019-01-16] MEDS: MAGNESIUM SULFATE/D5W 1 GM/100 ML RTUPB IV SCH ×4 (09:15→14:10)
[2019-01-16] MEDS: DOCUSATE SODIUM 100 MG CAPSULE PO SCH ×2 (09:16→17:27)
[2019-01-16] MEDS ORDERED: BUMETANIDE INJ/PF 1 MG/4 ML SDV IV SCH (10:00)
--- NOTE | 2019-01-16 11:39 | PDOC PROGRESS REPORT ---
Subjective Progress Note for:: 01/16/19 Reason For Visit: Patient seen today in the hospital. at the bedside. Chart review was done and discussions were done with the treating nurse as well as Dr. Thibodeaux. Patient last night became agitated, confused and combative. He was given Haldol initially which did not calm him enough that he had to be given Zyprexa. According to the patient's the patient this morning was lethargic and had profuse sweating and she did not like what she saw this morning unlike previous experiences with Haldol where he apparently he woke up more calmy. Incidentally his magnesium was critically low at 1.3 also this morning which with some early EKG changes. He has been given IV magnesium and currently the patient is calm though he is lethargic. He is answering to questions though slowly.No history of any seizures or falls. Poor intake yesterday after lunch. IV fluids unfortunately were not restarted after he had gone down for a thyroid ultrasound. Labs and medications were reviewed. His calcium is slightly better at 11.8. Magnesium as mentioned earlier was critically low at 1.3. Patient denies any history of headaches or pains anywhere. He says he has no difficulty with breathing. No abdominal pains. Physical Exam Vital Signs: Temp Pulse Resp BP Pulse Ox 98.6 F 92 21 H 96/64 L 93 01/16/19 04:25 01/16/19 04:25 01/16/19 04:25 01/16/19 04:25 01/16/19 04:25 Intake & Output 01/15/19 01/16/19 01/17/19 06:59 06:59 06:59 Intake Total 480 98 Output Total 1150 1900 Balance -670 -1900 98 Weight 121.5 kg 119.3 kg General appearance: PRESENT: no acute distress Exam: Rather lethargic but awake. Responds to questions appropriately. Eye exam: PRESENT: EOMI, PERRLA. ABSENT: conjunctival injection, periorbital swelling Ear exam: PRESENT: normal external ear exam Mouth exam: PRESENT: neck supple. ABSENT: moist Neck exam: ABSENT: meningismus, tenderness, thyromegaly, tracheal deviation Respiratory exam: PRESENT: clear to auscultation luci, decreased breath sounds. ABSENT: crackles Cardiovascular exam: PRESENT: +S1, +S2 GI/Abdominal exam: PRESENT: normal bowel sounds, soft. ABSENT: organomegaly, tenderness Extremities exam: ABSENT: pedal edema Neurological exam: PRESENT: altered - As he is lethargic. Most likely secondary to his atypical antipsychotic effects. He is moving all his 4 limbs. Answers questions though slowly but appropriate., oriented to person Psychiatric exam: PRESENT: flat affect Skin exam: ABSENT: erythema, mottled, rash Results Laboratory Results: 01/16/19 05:15 01/16/19 05:15 01/15/19 01/16/19 01/16/19 13:56 05:15 05:15 WBC 7.4 RBC 4.52 Hgb 13.7 Hct 40.1 MCV 89 MCH 30.3 MCHC 34.1 RDW 13.4 Plt Count 251 Sodium 144.0 141.5 Potassium 3.8 3.8 Chloride 109 H 106 Carbon Dioxide 25 23 Anion Gap 10 13 BUN 35 H 32 H Creatinine 1.81 H 2.19 H Est GFR ( Amer) 47 L 38 L Glucose 178 H 113 H Calcium 12.3 H* 11.8 H Phosphorus 2.1 L Magnesium 1.2 L* Prostate Specific Ag 1.800 TSH 01/16/19 05:15 WBC RBC Hgb Hct MCV MCH MCHC RDW Plt Count Sodium Potassium Chloride Carbon Dioxide Anion Gap BUN Creatinine Est GFR ( Amer) Glucose Calcium Phosphorus Magnesium Prostate Specific Ag TSH 0.59 01/13/19 01/13/19 01/14/19 22:15 22:15 02:20 Creatine Kinase 81 Troponin I 0.021 0.019 Impressions: Chest X-Ray 01/13/19 22:15 IMPRESSION: Negative chest copyright 2011 [employer]- All Rights Reserved Renal Ultrasound 01/15/19 00:00 IMPRESSION: Both kidneys demonstrate increased echogenicity consistent with medical renal disease. Left renal cyst. Thyroid Ultrasound 01/15/19 00:00 IMPRESSION: NORMAL THYROID ULTRASOUND. Assessment & Plan - Diagnosis (1) Severe hypercalcemia Is this a current diagnosis for this admission?: Yes Plan: Calcium is making a slight improvement. I would continue/restart his IV fluids which was discontinued late last evening. Patient clinically still dehydrated. Went to cut down his Bumex to just once a day instead of twice daily. One could use diuretics if the patient is well hydrated but otherwise it could be detrimental.So far evaluations to cause of hypercalcemia is negative. PTH related peptide is still pending.Had a lengthy discussion with his at the bedside. (2) Acute kidney injury Is this a current diagnosis for this admission?: Yes Plan: Nonoliguric. No real changes in chemistry. Please dose medications to GFR of approximately 30 cc/min. At the moment I am going to stop his metformin.I am going to discontinue his PPI and instead start him on an H2 david as well. Try to get his old notes from [facility]. (3) Acute metabolic encephalopathy Is this a current diagnosis for this admission?: Yes Plan: Currently he is lethargic/encephalopathy secondary to the effects from Zyprexa and earlier Haldol. Monitor. No focal deficits. (4) Diabetes mellitus type 2 in obese Is this a current diagnosis for this admission?: Yes Plan: DC metformin. Treat hyperglycemia if any with sliding scale. (5) HTN (hypertension) Qualifiers: Hypertension type: essential hypertension Qualified Code(s): I10 - Essential (primary) hypertension Is this a current diagnosis for this admission?: Yes Plan: Controlled to low. Withhold any antihypertensives if systolic below 120. (6) Hypomagnesemia Plan: Today's magnesium was 1.3. Given IV Mag. I will also DC the PPI which could also be a precipitating factor.
--- NOTE | 2019-01-16 12:40 | RADIOLOGY REPORT (SQ) ---
EXAM DESCRIPTION: BONE SURVEY COMPLETE COMPLETED DATE/TIME: 01/16/2019 12:23 pm REASON FOR STUDY: Suspected multiple myeloma COMPARISON: None. TECHNIQUE: Images of the axial and proximal appendicular skeleton are obtained, along with lateral s kull and frontal chest films. LIMITATIONS: None. FINDINGS: AP CHEST: No bony findings. Lungs are clear. LATERAL SKULL: No worrisome bone lesions. AP BOTH HUMERI: No worrisome bone lesions. TWO-VIEW LUMBAR SPINE: No worrisome bone lesions. TWO-VIEW THORACIC SPINE: No worrisome bone lesions. AP PELVIS: No worrisome bone lesions. AP BOTH FEMURS: No worrisome bone lesions. OTHER: No other significant finding. IMPRESSION: NO WORRISOME BONE LESIONS. TECHNICAL DOCUMENTATION: JOB ID: [id number] [employer]- All Rights Reserved Reading location - IP/workstation name: [email or web address]
--- NOTE | 2019-01-16 13:16 | PDOC PROGRESS REPORT ---
Subjective Progress Note for:: 01/16/19 Subjective:: This is 58 years old black male patient with past medical history of coronary artery disease, hypertension, hyperlipidemia, morbid obesity, type 2 diabetes mellitus, tobacco dependence referred from his primary care physician office of Dr. Bowie for hyperglycemia of 12.8. When patient checks at ER his calcium level is found to be 13.8. Of note patient recently discharged from this hospital after he suffered an acute ischemic stroke. Patient has been managed with aggressive hydration and IV diuretics. His latest calcium is 13.6. 01/15/2019: Patient still confused and sometimes combative. His latest calcium level is 12.8. He is being aggressively hydrated and is also on diuretics. Ultrasound of the neck is requested for possible solitary parathyroid adenoma. His PTH is elevated and PTH related protein is pending. 01/17/2019: Patient seen while resting in bed quietly. He responds appropriately to verbal stimuli. Is a bit lethargic. His complains that the Zyprexa make him to sweat profusely and asking me to discontinue Zyprexa. I tried to explain to her that patient is agitated and combative while he is being given Haldol so Zyprexa order to calm him down. But she insisted to to stop the medication. His thyroid scan for possible parathyroid adenoma is negative. Whole-body skeletal survey is also negative for osteolytic lesions. Still do not have explanation for his hypercalcemia even though his PTH is elevated mildly. Patient might have primary hyperparathyroidism or hypercalcemia of malignancy. Reason For Visit: HYPERCALCEMIA Physical Exam Vital Signs: Temp Pulse Resp BP Pulse Ox 98.6 F 93 21 H 96/64 L 93 01/16/19 04:25 01/16/19 07:00 01/16/19 04:25 01/16/19 04:25 01/16/19 04:25 Intake & Output 01/15/19 01/16/19 01/17/19 06:59 06:59 06:59 Intake Total 480 162 Output Total 1150 1900 Balance -670 -1900 162 Weight 121.5 kg 119.3 kg General appearance: PRESENT: no acute distress Head exam: PRESENT: atraumatic Eye exam: PRESENT: conjunctiva pink Mouth exam: PRESENT: moist Neck exam: ABSENT: carotid bruit, JVD, lymphadenopathy, thyromegaly Respiratory exam: PRESENT: clear to auscultation luci. ABSENT: rales, rhonchi, wheezes Cardiovascular exam: PRESENT: RRR. ABSENT: diastolic murmur, rubs, systolic murmur GI/Abdominal exam: PRESENT: normal bowel sounds, soft. ABSENT: distended, guarding, mass, organolmegaly, rebound, tenderness Neurological exam: PRESENT: altered Results Laboratory Results: 01/16/19 05:15 01/16/19 05:15 01/15/19 01/16/19 01/16/19 13:56 05:15 05:15 WBC 7.4 RBC 4.52 Hgb 13.7 Hct 40.1 MCV 89 MCH 30.3 MCHC 34.1 RDW 13.4 Plt Count 251 Sodium 144.0 141.5 Potassium 3.8 3.8 Chloride 109 H 106 Carbon Dioxide 25 23 Anion Gap 10 13 BUN 35 H 32 H Creatinine 1.81 H 2.19 H Est GFR ( Amer) 47 L 38 L Glucose 178 H 113 H Calcium 12.3 H* 11.8 H Phosphorus 2.1 L Magnesium 1.2 L* Prostate Specific Ag 1.800 TSH 01/16/19 05:15 WBC RBC Hgb Hct MCV MCH MCHC RDW Plt Count Sodium Potassium Chloride Carbon Dioxide Anion Gap BUN Creatinine Est GFR ( Amer) Glucose Calcium Phosphorus Magnesium Prostate Specific Ag TSH 0.59 01/13/19 01/13/19 01/14/19 22:15 22:15 02:20 Creatine Kinase 81 Troponin I 0.021 0.019 Impressions: Chest X-Ray 01/13/19 22:15 IMPRESSION: Negative chest copyright 2011 [employer]- All Rights Reserved Renal Ultrasound 01/15/19 00:00 IMPRESSION: Both kidneys demonstrate increased echogenicity consistent with medical renal disease. Left renal cyst. Thyroid Ultrasound 01/15/19 00:00 IMPRESSION: NORMAL THYROID ULTRASOUND. Skeletal Survey 01/16/19 00:00 IMPRESSION: NO WORRISOME BONE LESIONS. Assessment and Plan - Diagnosis (1) Acute metabolic encephalopathy Is this a current diagnosis for this admission?: Yes Plan: Today patient's relatively calm. (2) Severe hypercalcemia Is this a current diagnosis for this admission?: Yes Plan: His hypercalcemia is trending down. At this point the etiology is unclear. He might have primary hyperthyroidism or hypercalcemia of malignancy. Ultrasound of the neck does not show parathyroid adenoma. Whole-body skeletal survey is negative for osteolytic lesions. (3) Acute kidney injury Is this a current diagnosis for this admission?: Yes Plan: His creatinine is slightly bumped up. We will continue aggressive hydration. (4) Type 2 diabetes mellitus Is this a current diagnosis for this admission?: Yes Plan: Continue sliding scale and metformin. (5) Hypertension Qualifiers: Hypertension type: essential hypertension Qualified Code(s): I10 - Essential (primary) hypertension Is this a current diagnosis for this admission?: Yes Plan: Continue his home medication (6) Morbid obesity with BMI of 40.0-44.9, adult Is this a current diagnosis for this admission?: Yes Plan: Lifestyle modification advised
[2019-01-16] MEDS ORDERED: HEPARIN SOD (PORCINE) 5,000 UNIT/ML 1 ML VIAL ONE (15:31)
[2019-01-16] MEDS: NORMAL SALINE 1000 ML 1,000 ML IV PRN (19:17)
[2019-01-16] MEDS: ATORVASTATIN CALCIUM 80 MG TABLET PO SCH (21:27)
[2019-01-16] MEDS: FAMOTIDINE 20 MG TABLET PO SCH (21:27)
[2019-01-17] MEDS: NORMAL SALINE 1000 ML 1,000 ML IV PRN ×3 (00:36→23:47)
[2019-01-17] MEDS ORDERED: NORMAL SALINE 1000 ML 1,000 ML IV ONE (05:15)
[2019-01-17 05:23] LABS: HEMOGLOBIN 12.4 g/dL (13.5-17.0); MEAN CORPUSCULAR HEMOGLOBIN 30.1 pg (27.0-33.4); MEAN CORPUSCULAR HGB CONC 33.6 g/dL (32.0-36.0); MEAN CORPUSCULAR VOLUME 90 fl (80-97); PLATELET COUNT 200 10^3/uL (150-450); RED BLOOD COUNT 4.13 10^6/uL (4.35-5.55); RED CELL DISTRIBUTION WIDTH 13.4 % (11.5-14.0); WHITE BLOOD COUNT 8.4 10^3/uL (4.0-10.5)
[2019-01-17 05:41] LABS: ANION GAP 11 (5-19); BLOOD UREA NITROGEN 49 mg/dL (7-20); CARBON DIOXIDE 22 mmol/L (22-30); CHLORIDE 108 mmol/L (98-107); GLUCOSE 103 mg/dL (75-110); POTASSIUM 3.6 mmol/L (3.6-5.0)
[2019-01-17] MEDS: HEPARIN SOD (PORCINE) 5,000 UNIT/ML 1 ML VIAL SUBCUT SCH (06:29)
[2019-01-17] MEDS: DOCUSATE SODIUM 100 MG CAPSULE PO SCH ×2 (10:34→18:24)
[2019-01-17] MEDS: INSULIN REG, HUMAN 100 UNIT/ML 3 ML VIAL (PYX) SUBCUT SCH ×4 (10:35→23:04)
[2019-01-17] MEDS: FAMOTIDINE 20 MG TABLET PO SCH ×2 (10:44→23:03)
[2019-01-17] MEDS: ASPIRIN 81 MG TABLET, ENT COATED PO SCH (10:45)
[2019-01-17] MEDS: CARVEDILOL 12.5 MG TABLET PO SCH ×2 (10:45→23:03)
[2019-01-17] MEDS: BUMETANIDE INJ/PF 1 MG/4 ML SDV IV SCH (10:45)
[2019-01-17] MEDS: AMLODIPINE BESYLATE 10 MG TABLET PO SCH (10:45)
[2019-01-17] MEDS: CLOPIDOGREL BISULFATE 75 MG TABLET PO SCH (10:45)
--- NOTE | 2019-01-17 12:14 | RADIOLOGY REPORT (SQ) ---
EXAM DESCRIPTION: MRI HEAD WITHOUT COMPLETED DATE/TIME: 01/17/2019 11:58 am REASON FOR STUDY: BRAIN MRI weakness, hypercalcemia COMPARISON: Skeletal survey 01/16/2019 TECHNIQUE: Multiplanar imaging includes non-contrasted T1, T2, FLAIR, and diffusion with ADC map seq uences. Images stored on PACS. LIMITATIONS: Motion artifact FINDINGS: ANATOMY: No developmental anomalies. Normal vascular flow voids. Pituitary fossa normal. CSF SPACES: Normal in size and contour. No hemorrhage. CEREBRUM: Diffusion-weighted images are positive for multiple acute nonhemorrhagic infarcts in the bi lateral cerebellar hemispheres, punctate cortical infarct in the right occipital cortex, punctate inf arct in the splenium corpus callosum, and multiple small infarcts along the left deep pericallosal wh ite matter. Findings are worrisome for embolic disease. Hypotension and watershed infarcts are poss ible but considered less likely. Findings called to Dr. Thibodeaux. Remainder of the cerebrum demonstrates extensive chronic small vessel ischemic change throughout the hemispheric white matter, and multiple lacunar infarcts in the left thalamus and bilateral basal gang nikolay. POSTERIOR FOSSA: Multiple acute infarcts in the right and left cerebellar hemispheres. Medulla, johnny , brainstem intact. No hemorrhage. No mass effect or midline shift DIFFUSION IMAGING: Positive for multiple acute nonhemorrhagic infarcts in the bilateral cerebellar he mispheres, right occipital cortex, splenium corpus callosum, and multiple infarcts along the deep per icallosal white matter left side. ORBITS: No masses. Globes normal. PARANASAL SINUSES: No fluid levels. Mucosa normal. OTHER: No other significant finding. IMPRESSION: Multiple acute nonhemorrhagic infarcts in multiple vascular distributions. Embolic infa rcts favored over watershed ischemia. EVIDENCE OF ACUTE STROKE: Yes findings called to the attending physician, 1155 hours 01/17/2019. TECHNICAL DOCUMENTATION: JOB ID: [id number] [employer]- All Rights Reserved Reading location - IP/workstation name: [email or web address]
--- NOTE | 2019-01-17 13:17 | PDOC PROGRESS REPORT ---
Subjective Progress Note for:: 01/17/19 Subjective:: This is 58 years old black male patient with past medical history of coronary artery disease, hypertension, hyperlipidemia, morbid obesity, type 2 diabetes mellitus, tobacco dependence referred from his primary care physician office of Dr. Bowie for hyperglycemia of 12.8. When patient checks at ER his calcium level is found to be 13.8. Of note patient recently discharged from this hospital after he suffered an acute ischemic stroke. Patient has been managed with aggressive hydration and IV diuretics. His latest calcium is 13.6. 01/15/2019: Patient still confused and sometimes combative. His latest calcium level is 12.8. He is being aggressively hydrated and is also on diuretics. Ultrasound of the neck is requested for possible solitary parathyroid adenoma. His PTH is elevated and PTH related protein is pending. 01/16/2019: Patient seen while resting in bed quietly. He responds appropriately to verbal stimuli. Is a bit lethargic. His complains that the Zyprexa make him to sweat profusely and asking me to discontinue Zyprexa. I tried to explain to her that patient is agitated and combative while he is being given Haldol so Zyprexa order to calm him down. But she insisted to to stop the medication. His thyroid scan for possible parathyroid adenoma is negative. Whole-body skeletal survey is also negative for osteolytic lesions. Still do not have explanation for his hypercalcemia even though his PTH is elevated mildly. Patient might have primary hyperparathyroidism or hypercalcemia of malignancy. 01/17/2019: Due to increased confusion I requested MRI of the brain this morning and the report is as positive for multiple acute nonhemorrhagic infarcts in the bilateral cerebellar hemispheres, right occipital cortex, splenium corpus callosum and multiple infarcts along the deep pericallosal white matter left side. Embolic infarcts favored over watershed ischemia. I contacted his [facility] for ELIA to rule out left ventricular thrombus. His [place] will take him today or Monday for ELIA. In the meantime empirically I started him on Eliquis 5 mg twice daily and I discontinued his heparin. I reviewed also his blood work was which shows his hypercalcemia is resolved and his magnesium was also corrected. On the other side patient has decreased urine output and is creatinine worsened at 4.69. Reason For Visit: HYPERCALCEMIA Physical Exam Vital Signs: Temp Pulse Resp BP Pulse Ox 97.3 F 66 18 131/67 H 99 01/17/19 07:05 01/17/19 07:05 01/17/19 07:05 01/17/19 07:05 01/17/19 07:05 Intake & Output 01/16/19 01/17/19 01/18/19 06:59 06:59 06:59 Intake Total 3242 Output Total 1900 100 Balance -1900 3142 Weight 119.3 kg 121.9 kg General appearance: PRESENT: no acute distress Eye exam: PRESENT: conjunctiva pink Neck exam: ABSENT: carotid bruit, JVD, lymphadenopathy, thyromegaly Respiratory exam: PRESENT: clear to auscultation luci. ABSENT: rales, rhonchi, w heezes GI/Abdominal exam: PRESENT: normal bowel sounds, soft. ABSENT: distended, guarding, mass, organolmegaly, rebound, tenderness Neurological exam: PRESENT: alert, altered Psychiatric exam: PRESENT: agitated Results Laboratory Results: 01/17/19 04:45 01/17/19 04:45 01/17/19 01/17/19 04:45 04:45 WBC 8.4 RBC 4.13 L Hgb 12.4 L Hct 37.0 L MCV 90 MCH 30.1 MCHC 33.6 RDW 13.4 Plt Count 200 Sodium 140.8 Potassium 3.6 Chloride 108 H Carbon Dioxide 22 Anion Gap 11 BUN 49 H Creatinine 4.69 H Est GFR ( Amer) 16 L Glucose 103 Calcium 10.0 Magnesium 2.1 01/13/19 01/13/19 01/14/19 22:15 22:15 02:20 Creatine Kinase 81 Troponin I 0.021 0.019 Impressions: Chest X-Ray 01/13/19 22:15 IMPRESSION: Negative chest copyright 2011 [employer]- All Rights Reserved Renal Ultrasound 01/15/19 00:00 IMPRESSION: Both kidneys demonstrate increased echogenicity consistent with med ical renal disease. Left renal cyst. Thyroid Ultrasound 01/15/19 00:00 IMPRESSION: NORMAL THYROID ULTRASOUND. Skeletal Survey 01/16/19 00:00 IMPRESSION: NO WORRISOME BONE LESIONS. Head MRI 01/17/19 00:00 IMPRESSION: Multiple acute nonhemorrhagic infarcts in multiple vascular distributions. Embolic infarcts favored over watershed ischemia. EVIDENCE OF ACUTE STROKE: Yes findings called to the attending physician, 1155 hours 01/17/2019. Assessment and Plan - Diagnosis (1) Acute metabolic encephalopathy Is this a current diagnosis for this admission?: Yes Plan: His acute encephalopathy is explained by the acute ischemic stroke, hypercalcemia and other metabolic abnormalities. (2) Severe hypercalcemia Is this a current diagnosis for this admission?: Yes Plan: Etiology unclear at this time but his calcium level has been normalized. (3) Hypomagnesemia Is this a current diagnosis for this admission?: Yes Plan: Has resolved (4) Acute ischemic multifocal multiple vascular territories stroke Is this a current diagnosis for this admission?: Yes Plan: Patient will be transferred to [facility] for ELIA. In the meantime patient has been started on Eliquis 5 mg twice daily. (5) Acute kidney injury Is this a current diagnosis for this admission?: Yes Plan: His kidney function has markedly worsened. His creatinine jumped to 4.69. Patient has been aggressively hydrated with normal saline at rate of 200 mL/h. (6) Type 2 diabetes mellitus Is this a current diagnosis for this admission?: Yes Plan: Continue sliding scale and metformin. (7) Hypertension Qualifiers: Hypertension type: essential hypertension Qualified Code(s): I10 - Essential (primary) hypertension Is this a current diagnosis for this admission?: Yes Plan: Continue his home medication (8) Morbid obesity with BMI of 40.0-44.9, adult Is this a current diagnosis for this admission?: Yes Plan: Lifestyle modification advised
[2019-01-17] MEDS: APIXABAN 5 MG TABLET PO SCH (18:26)
--- NOTE | 2019-01-17 19:26 | PDOC PROGRESS REPORT ---
Subjective Progress Note for:: 01/17/19 Subjective:: Patient is a 58-year-old gentleman who was admitted with acute kidney injury with initial creatinine of 3.0 and hypercalcemia with initial calcium of 14. Patient also has altered mental status. Since admission the patient has been aggressively hydrated. His creatinine has come down to 1.92 days ago. His calcium was also being worked up for the cause. His PTH is just mildly elevated, PTH RP is pending, and the thyroid ultrasound did not show any parathyroid nodules. Patient was given zoledronic acid and calcitonin at one- point in the hydrochlorothiazide discontinued. The calcium today is 10. In terms of the kidney function, today his creatinine is elevated to 4.6. Apparently yesterday patient has been sleeping the whole day after he was given Zyprexa and he has been hypotensive for the entire day as low as a blood pressure of 89/47. His who is at bedside said that the patient did not make much urine yesterday. The intake and output balance only recorded 100 mL of urine but the patient is also collecting a 24-hour urine is starting early a.m. today. Patient is making more and better urine output today. Zyprexa was discontinued. Patient's a little bit better today according to the . Patient was awake and has just gotten out of the bathroom when I get into the room. He was able to walk to his bed. He is actually able to communicate and answer some few questions but did not verbalize much complaints. His is the main historian. Today the said he is also eating better. His nurse today, Ashley confirmed that yesterday's mental status was not good at all. Ashley also come confirmed that today he is better although possibly not at baseline yet. Reason For Visit: HYPERCALCEMIA Physical Exam Vital Signs: Temp Pulse Resp BP Pulse Ox 97.3 F 66 18 131/67 H 99 01/17/19 07:05 01/17/19 07:05 01/17/19 07:05 01/17/19 07:05 01/17/19 07:05 Intake & Output 01/16/19 01/17/19 01/18/19 06:59 06:59 06:59 Intake Total 3242 240 Output Total 1900 100 500 Balance -1900 3142 -260 Weight 119.3 kg 121.9 kg Exam: General appearance: PRESENT: no acute distress, cooperative, well-developed, well-nourished Head exam: PRESENT: atraumatic, normocephalic Eye exam: PRESENT: conjunctiva pink, PERRLA. ABSENT: scleral icterus Neck exam: ABSENT: JVD Respiratory exam: PRESENT: Normal breath sounds. ABSENT: crackles, rales, rhonchi, unlabored, wheezes Cardiovascular exam: PRESENT: Regular rate rhythm -+S1, +S2. ABSENT: diastolic murmur, systolic murmur GI/Abdominal exam: PRESENT: normal bowel sounds, soft. ABSENT: guarding, mass, tenderness Extremities exam: ABSENT: No edema Neurological exam: PRESENT: alert, awake, oriented to person, place and time. Skin exam: PRESENT: dry, warm, Cardiovascular exam: PRESENT: +S1, +S2 GI/Abdominal exam: PRESENT: normal bowel sounds, soft. ABSENT: organomegaly, tenderness Results Laboratory Results: 01/17/19 04:45 01/17/19 04:45 01/17/19 01/17/19 04:45 04:45 WBC 8.4 RBC 4.13 L Hgb 12.4 L Hct 37.0 L MCV 90 MCH 30.1 MCHC 33.6 RDW 13.4 Plt Count 200 Sodium 140.8 Potassium 3.6 Chloride 108 H Carbon Dioxide 22 Anion Gap 11 BUN 49 H Creatinine 4.69 H Est GFR ( Amer) 16 L Glucose 103 Calcium 10.0 Magnesium 2.1 01/13/19 01/13/19 01/14/19 22:15 22:15 02:20 Creatine Kinase 81 Troponin I 0.021 0.019 Impressions: Chest X-Ray 01/13/19 22:15 IMPRESSION: Negative chest copyright 2011 [employer]- All Rights Reserved Renal Ultrasound 01/15/19 00:00 IMPRESSION: Both kidneys demonstrate increased echogenicity consistent with medical renal disease. Left renal cyst. Thyroid Ultrasound 01/15/19 00:00 IMPRESSION: NORMAL THYROID ULTRASOUND. Skeletal Survey 01/16/19 00:00 IMPRESSION: NO WORRISOME BONE LESIONS. Head MRI 01/17/19 00:00 IMPRESSION: Multiple acute nonhemorrhagic infarcts in multiple vascular distributions. Embolic infarcts favored over watershed ischemia. EVIDENCE OF ACUTE STROKE: Yes findings called to the attending physician, 1155 hours 01/17/2019. Assessment & Plan - Diagnosis (1) Acute kidney injury Is this a current diagnosis for this admission?: Yes Plan: Patient came in with acute kidney injury secondary to prerenal azotemia due to severe dehydration. It was improving until yesterday when he had an episode of hypotension for most of the day. So his kidney function has worsened today. Clinically the patient is passing out more urine output today. I think the sudden increase in the creatinine could possibly be due to the hypotensive episode that he has and thus could have led to acute tubular necrosis. Will closely monitor the patient's kidney function and repeat his BMP tonight and tomorrow. I discussed with the patient and his at bedside that if his kidney function continues to get worse along with other metabolic abnormalities then dialysis would be an option but hopefully we do not have to go there. At this point there is no urgent indication for renal replacement therapy. Continue IV fluid hydration and maintain normotension. Baseline kidney function is unknown at this point. Patient's denies any known kidney problems although she mentioned that she he had kidney stones in the past. Kidney ultrasound done showed increased echogenicity, normal size kidneys without any solid or suspicious masses and a left renal cyst. (2) Hypercalcemia Is this a current diagnosis for this admission?: Yes Plan: Etiology still uncertain at this point. He has mildly elevated PTH, low phosphorus, PTH-rP is pending, and ultrasound showing no evidence of parathyroid nodules. Skeletal bone survey was also negative for any bone lesions. A 24- hour urine calcium was ordered and is currently being collected. Current calcium level is within normal limits after IV fluid hydration, Zolendronic acid and calcitonin. I think we should check protein electrophoresis, and vitamin D levels as well. (3) Acute ischemic multifocal multiple vascular territories stroke Is this a current diagnosis for this admission?: Yes Plan: On MRI the patient has new bilateral cerebellar infarcts and right occipital infarct compared to previous imaging study in November. Patient was started on Eliquis by hospitalist service. (4) Acute metabolic encephalopathy Is this a current diagnosis for this admission?: Yes Plan: This could likely be secondary to hypercalcemia as well as the acute brain infarcts. (5) HTN (hypertension) Qualifiers: Hypertension type: essential hypertension Qualified Code(s): I10 - Essential (primary) hypertension Is this a current diagnosis for this admission?: Yes Plan: Currently within acceptable limits. (6) Diabetes mellitus type 2 in obese Is this a current diagnosis for this admission?: Yes Plan: Well-controlled. - Notes Notes: Discussed condition with the . - Time Time with patient: Greater than 35 minutes
[2019-01-17 20:38] LABS: ANION GAP 13 (5-19); BLOOD UREA NITROGEN 44 mg/dL (7-20); CALCIUM 10.8 mg/dL (8.4-10.2); CARBON DIOXIDE 21 mmol/L (22-30); CHLORIDE 109 mmol/L (98-107); GLUCOSE 122 mg/dL (75-110); POTASSIUM 3.9 mmol/L (3.6-5.0)
[2019-01-17] MEDS: ATORVASTATIN CALCIUM 80 MG TABLET PO SCH (23:03)
[2019-01-17] MEDS: HALOPERIDOL LACTATE INJ 5 MG/1 ML VIAL IV PRN (23:04)
[2019-01-18] MEDS ORDERED: DIAZEPAM INJ 10 MG/2 ML DISP.SYRIN IV ONE (01:50)
[2019-01-18] MEDS ORDERED: HALOPERIDOL LACTATE INJ 5 MG/1 ML VIAL IV ONE (02:00)
[2019-01-18] MEDS: NORMAL SALINE 1000 ML 1,000 ML IV PRN (05:39)
[2019-01-18 07:04] LABS: ANION GAP 11 (5-19); BLOOD UREA NITROGEN 38 mg/dL (7-20); CARBON DIOXIDE 21 mmol/L (22-30); CHLORIDE 111 mmol/L (98-107); GLUCOSE 167 mg/dL (75-110); POTASSIUM 4.2 mmol/L (3.6-5.0)
[2019-01-18] MEDS: BUMETANIDE INJ/PF 1 MG/4 ML SDV IV SCH (08:12)
[2019-01-18] MEDS: INSULIN REG, HUMAN 100 UNIT/ML 3 ML VIAL (PYX) SUBCUT SCH ×3 (08:13→21:26)
--- NOTE | 2019-01-18 12:50 | PDOC PROGRESS REPORT ---
Subjective Progress Note for:: 01/18/19 Subjective:: This is 58 years old black male patient with past medical history of coronary artery disease, hypertension, hyperlipidemia, morbid obesity, type 2 diabetes mellitus, tobacco dependence referred from his primary care physician office of Dr. Bowie for hyperglycemia of 12.8. When patient checks at ER his calcium level is found to be 13.8. Of note patient recently discharged from this hospital after he suffered an acute ischemic stroke. Patient has been managed with aggressive hydration and IV diuretics. His latest calcium is 13.6. 01/15/2019: Patient still confused and sometimes combative. His latest calcium level is 12.8. He is being aggressively hydrated and is also on diuretics. Ultrasound of the neck is requested for possible solitary parathyroid adenoma. His PTH is elevated and PTH related protein is pending. 01/16/2019: Patient seen while resting in bed quietly. He responds appropriately to verbal stimuli. Is a bit lethargic. His complains that the Zyprexa make him to sweat profusely and asking me to discontinue Zyprexa. I tried to explain to her that patient is agitated and combative while he is being given Haldol so Zyprexa order to calm him down. But she insisted to to stop the medication. His thyroid scan for possible parathyroid adenoma is negative. Whole-body skeletal survey is also negative for osteolytic lesions. Still do not have explanation for his hypercalcemia even though his PTH is elevated mildly. Patient might have primary hyperparathyroidism or hypercalcemia of malignancy. 01/17/2019: Due to increased confusion I requested MRI of the brain this morning and the report is as positive for multiple acute nonhemorrhagic infarcts in the bilateral cerebellar hemispheres, right occipital cortex, splenium corpus callosum and multiple infarcts along the deep pericallosal white matter left side. Embolic infarcts favored over watershed ischemia. I contacted his [facility] for ELIA to rule out left ventricular thrombus. His [facility] will take him today or Monday for ELIA. In the meantime empirically I started him on Eliquis 5 mg twice daily and I discontinued his heparin. I reviewed also his blood work was which shows his hypercalcemia is resolved and his magnesium was also corrected. On the other side patient has decreased urine output and is creatinine worsened at 4.69. 01/01/2019: Last night patient had an episode of agitation and combativeness which later he calm down. His blood work shows that his calcium level is slightly creeping up from 10.8 yesterday today it is 11 but his creatinine is trending down yesterday it was 4.692 date is 2.71. Reason For Visit: HYPERCALCEMIA Physical Exam Vital Signs: Temp Pulse Resp BP Pulse Ox 99.0 F 98 18 149/77 H 98 01/17/19 23:42 01/18/19 07:00 01/17/19 23:42 01/17/19 23:42 01/17/19 23:42 Intake & Output 01/17/19 01/18/19 01/19/19 06:59 06:59 06:59 Intake Total 3242 2720 Output Total 100 2400 Balance 3142 320 Weight 121.9 kg 121 kg General appearance: PRESENT: no acute distress Head exam: PRESENT: atraumatic Mouth exam: PRESENT: moist, tongue midline Neck exam: ABSENT: carotid bruit, JVD, lymphadenopathy, thyromegaly Respiratory exam: PRESENT: clear to auscultation luci. ABSENT: rales, rhonchi, wheezes Cardiovascular exam: PRESENT: RRR. ABSENT: diastolic murmur, rubs, systolic murmur GI/Abdominal exam: PRESENT: normal bowel sounds, soft. ABSENT: distended, guarding, mass, organolmegaly, rebound, tenderness Neurological exam: PRESENT: alert, awake, oriented to person, oriented to place, oriented to time, oriented to situation Results Laboratory Results: 01/17/19 04:45 01/18/19 05:52 01/17/19 01/18/19 19:54 05:52 Sodium 142.8 143.1 Potassium 3.9 4.2 Chloride 109 H 111 H Carbon Dioxide 21 L 21 L Anion Gap 13 11 BUN 44 H 38 H Creatinine 3.61 H 2.71 H Est GFR ( Amer) 21 L 29 L Glucose 122 H 167 H Calcium 10.8 H 11.0 H 01/13/19 01/13/19 01/14/19 22:15 22:15 02:20 Creatine Kinase 81 Troponin I 0.021 0.019 Impressions: Chest X-Ray 01/13/19 22:15 IMPRESSION: Negative chest copyright 2011 [employer]- All Rights Reserved Renal Ultrasound 01/15/19 00:00 IMPRESSION: Both kidneys demonstrate increased echogenicity consistent with medical renal disease. Left renal cyst. Thyroid Ultrasound 01/15/19 00:00 IMPRESSION: NORMAL THYROID ULTRASOUND. Skeletal Survey 01/16/19 00:00 IMPRESSION: NO WORRISOME BONE LESIONS. Head MRI 01/17/19 00:00 IMPRESSION: Multiple acute nonhemorrhagic infarcts in multiple vascular distributions. Embolic infarcts favored over watershed ischemia. EVIDENCE OF ACUTE STROKE: Yes findings called to the attending physician, 1155 hours 01/17/2019. Assessment and Plan - Diagnosis (1) Acute metabolic encephalopathy Is this a current diagnosis for this admission?: Yes Plan: His acute encephalopathy is explained by the acute ischemic stroke, hypercalcemia and other metabolic abnormalities. (2) Severe hypercalcemia Is this a current diagnosis for this admission?: Yes Plan: His calcium is slightly is creeping up (3) Hypomagnesemia Is this a current diagnosis for this admission?: Yes Plan: Has resolved (4) Acute ischemic multifocal multiple vascular territories stroke Is this a current diagnosis for this admission?: Yes Plan: Patient will be transferred to [facility] for ELIA. In the meantime patient has been started on Eliquis 5 mg twice daily. (5) Acute kidney injury Is this a current diagnosis for this admission?: Yes Plan: His kidney function has markedly worsened. His creatinine jumped to 4.69. Patient has been aggressively hydrated with normal saline at rate of 200 mL/h. (6) Type 2 diabetes mellitus Is this a current diagnosis for this admission?: Yes Plan: Continue sliding scale and metformin. (7) Hypertension Qualifiers: Hypertension type: essential hypertension Qualified Code(s): I10 - Essential (primary) hypertension Is this a current diagnosis for this admission?: Yes Plan: Continue his home medication (8) Morbid obesity with BMI of 40.0-44.9, adult Is this a current diagnosis for this admission?: Yes Plan: Lifestyle modification advised
--- NOTE | 2019-01-18 16:15 | PDOC PROGRESS REPORT ---
Subjective Progress Note for:: 01/18/19 Subjective:: Patient went to [facility] this morning for a ELIA but unfortunately was canceled. I found the patient laying down in bed talking to his nieces at bedside. He seems to be very comfortable and tells me that he is doing fine. He denies any complaints at all. He seems calm and answering questions appropriately. However his nurse, Ashley tells me that he still has this episodes of agitation at times. Reason For Visit: HYPERCALCEMIA Physical Exam Vital Signs: Temp Pulse Resp BP Pulse Ox 99.0 F 98 18 149/77 H 98 01/17/19 23:42 01/18/19 07:00 01/17/19 23:42 01/17/19 23:42 01/17/19 23:42 Intake & Output 01/17/19 01/18/19 01/19/19 06:59 06:59 06:59 Intake Total 3242 2720 1252 Output Total 100 2400 Balance 3142 320 1252 Weight 121.9 kg 121 kg Exam: General appearance: PRESENT: no acute distress, cooperative, well-developed, well-nourished Head exam: PRESENT: atraumatic, normocephalic Eye exam: PRESENT: conjunctiva pink, PERRLA. ABSENT: scleral icterus Neck exam: ABSENT: JVD Respiratory exam: PRESENT: Normal breath sounds. ABSENT: crackles, rales, rhonchi, unlabored, wheezes Cardiovascular exam: PRESENT: Regular rate rhythm -+S1, +S2. ABSENT: diastolic murmur, systolic murmur GI/Abdominal exam: PRESENT: normal bowel sounds, soft. ABSENT: guarding, mass, tenderness Extremities exam: ABSENT: No edema Neurological exam: PRESENT: alert, awake, oriented to person, place and time. Skin exam: PRESENT: dry, warm, Cardiovascular exam: PRESENT: +S1, +S2 GI/Abdominal exam: PRESENT: normal bowel sounds, soft. ABSENT: organomegaly, tenderness Results Laboratory Results: 01/17/19 04:45 01/18/19 05:52 01/17/19 01/18/19 19:54 05:52 Sodium 142.8 143.1 Potassium 3.9 4.2 Chloride 109 H 111 H Carbon Dioxide 21 L 21 L Anion Gap 13 11 BUN 44 H 38 H Creatinine 3.61 H 2.71 H Est GFR ( Amer) 21 L 29 L Glucose 122 H 167 H Calcium 10.8 H 11.0 H 01/13/19 01/13/19 01/14/19 22:15 22:15 02:20 Creatine Kinase 81 Troponin I 0.021 0.019 Impressions: Chest X-Ray 01/13/19 22:15 IMPRESSION: Negative chest copyright 2010 [employer]- All Rights Reserved Renal Ultrasound 01/15/19 00:00 IMPRESSION: Both kidneys demonstrate increased echogenicity consistent with medical renal disease. Left renal cyst. Thyroid Ultrasound 01/15/19 00:00 IMPRESSION: NORMAL THYROID ULTRASOUND. Skeletal Survey 01/16/19 00:00 IMPRESSION: NO WORRISOME BONE LESIONS. Head MRI 01/17/19 00:00 IMPRESSION: Multiple acute nonhemorrhagic infarcts in multiple vascular d istributions. Embolic infarcts favored over watershed ischemia. EVIDENCE OF ACUTE STROKE: Yes findings called to the attending physician, 1155 hours 01/17/2019. Assessment & Plan - Diagnosis (1) Acute kidney injury Is this a current diagnosis for this admission?: Yes Plan: Patient came in with acute kidney injury secondary to prerenal azotemia due to severe dehydration. It was improving until last Monday when he had an episode of hypotension for most of the day. So his kidney function has worsened yesterday to have a creatinine of 4.69. He made about 2400 mL of urine output for the last 24 hours which is a significant improvement from the day before. His kidney function is also significantly improved today with BUN of 38, and creatinine of 2.71. He does not have any signs of uremia. We will continue to monitor kidney function. The patient does not need any renal placement therapy today. Baseline kidney function is unknown at this point. Patient's denies any known kidney problems although she mentioned that she he had kidney stones in the past. Kidney ultrasound done showed increased echogenicity, normal size kidneys without any solid or suspicious masses and a left renal cyst. (2) Hypercalcemia Is this a current diagnosis for this admission?: Yes Plan: Etiology still uncertain at this point. He has mildly elevated PTH, low phosphorus, vitamin D level is normal, PTH-rP is pending, and ultrasound showing no evidence of parathyroid nodules. Skeletal bone survey was also negative for any bone lesions. A 24-hour urine calcium was ordered and is currently being collected. Current calcium level is is is still slowly creeping up despite IV fluid hydration. During his admission he was given Zolendronic acid and calcitonin. Serum protein electrophoresis is pending. I think it may be worthwhile to do a parathyroid sestamibi scan even though her thyroid ultrasound is negative for any parathyroid abnormality. Will defer to Dr. Louise. (3) Acute ischemic multifocal multiple vascular territories stroke Is this a current diagnosis for this admission?: Yes Plan: On MRI the patient has new bilateral cerebellar infarcts and right occipital infarct compared to previous imaging study in November. Patient was started on Eliquis by hospitalist service. TE was arranged and ordered to be done at [facility] today but unfortunately it was canceled for what ever reason. (4) Acute metabolic encephalopathy Is this a current diagnosis for this admission?: Yes Plan: This could likely be secondary to hypercalcemia as well as the acute brain infarcts. (5) HTN (hypertension) Qualifiers: Hypertension type: essential hypertension Qualified Code(s): I10 - Essential (primary) hypertension Is this a current diagnosis for this admission?: Yes Plan: Currently within acceptable limits. (6) Diabetes mellitus type 2 in obese Is this a current diagnosis for this admission?: Yes Plan: Well-controlled. - Time Time with patient: 15-25 minutes
[2019-01-18] MEDS: DOCUSATE SODIUM 100 MG CAPSULE PO SCH ×2 (17:08→17:13)
[2019-01-18] MEDS: FAMOTIDINE 20 MG TABLET PO SCH ×2 (17:09→21:15)
[2019-01-18] MEDS: ASPIRIN 81 MG TABLET, ENT COATED PO SCH (17:09)
[2019-01-18] MEDS: CARVEDILOL 12.5 MG TABLET PO SCH ×2 (17:09→21:15)
[2019-01-18] MEDS: AMLODIPINE BESYLATE 10 MG TABLET PO SCH (17:09)
[2019-01-18] MEDS: APIXABAN 5 MG TABLET PO SCH ×2 (17:09→17:15)
[2019-01-18] MEDS: DIAZEPAM 5 MG TABLET PO SCH ×2 (17:15→21:25)
--- NOTE | 2019-01-18 18:52 | XCELERA REPORT ---
[address] [address] Transthoracic Echocardiogram Report Name: SEBLE HIGH Age: 58 yrs Gender: Male : 1960 Patient Status: Inpatient Patient Location: [address] [place], [place] [address] Study Date: 01/18/2019 03:06 PM Height: 69 in Weight: 266 lb BSA: 2.3 m2 Procedure: A two-dimensional transthoracic echocardiogram with color flow and Doppler was performed. Study Quality: Good. Reason For Study: CVA History: CVA. Ordering Physician: PRO KAMARA Performed By: Pari Han Interpretation Summary There is no obvious cardiac source of embolus noted on this transthoracic echocardiogram. Follow-up with a ELIA is suggested if cardiac source is still suspected. The left ventricle is normal in size. There is moderate concentric left ventricular hypertrophy. The left ventricular ejection fraction is within normal limits. LV EF is 70% Doppler measurements suggest impaired left ventricular relaxation, which is associated with grade I/IV or mild diastolic dysfunction The left ventricular wall motion is normal. There is no thrombus. There is no ventricular septal defect visualized. The right ventricle is normal in size and function. The right atrium is normal. The left atrial size is normal. The interatrial septum is intact with no evidence for an atrial septal defect. There is no Doppler evidence for an interatrial shunt There is mild mitral leaflet calcification. There is no evidence of mitral valve prolapse. There is no vegetation seen on the mitral valve. There is no mitral valve stenosis. There is a trace amount of mitral regurgitation There is no aortic valvular vegetation. There is no aortic valve stenosis There is no LVOT obstruction. There is a mild amount of aortic regurgitation There is no tricuspid stenosis. There is a mild amount of tricuspid regurgitation Upper normal to mild pulmonary hypertension.RVSP is29 to 34 mm of Hg , with RA mean of 5 to 10. There is no pulmonic valvular stenosis. There is no pulmonic valvular regurgitation. The aortic root is normal size. The inferior vena cava appeared normal and decreased > 50% with respiration (RAP 5-10 mmHg) There is no pericardial effusion. There is no obvious cardiac source of embolus noted on this transthoracic echocardiogram. Follow-up with a ELIA is suggested if cardiac source is still suspected MMode/2D Measurements & Calculations RVDd: 3.7 cm LVIDd: 5.3 cm FS: 43.5 % Ao root diam: 3.4 cm IVSd: 1.4 cm LVIDs: 3.0 cm EDV(Teich): LVPWd: 1.4 cm 133.4 ml Ao root area: ESV(Teich): 9.0 cm2 34.4 ml LA dimension: EF(Teich): 74.2 % 4.4 cm LVLd ap4: 8.1 cm SV(MOD-sp4): EDV(MOD-sp4): 82.0 ml 129.0 ml LVLs ap4: 7.1 cm ESV(MOD-sp4): 47.0 ml EF(MOD-sp4): 63.6 % Doppler Measurements & Calculations MV E max gris: MV P1/2t max gris: Ao V2 max: AI max gris: 65.6 cm/sec 64.8 cm/sec 180.0 cm/sec 454.7 cm/sec MV A max gris: MV P1/2t: 84.5 msec Ao max PG: AI max P.7 mmHg 73.3 cm/sec MVA(P1/2t): 2.6 cm2 13.0 mmHg AI dec slope: MV E/A: 0.89 MV dec slope: 254.1 cm/sec2 AI P1/2t: 524.2 msec 224.5 cm/sec2 MV dec time: 0.28 sec LV V1 max PG: PA V2 max: TR max gris: AV P1/2t-pr_phl: 8.6 mmHg 104.1 cm/sec 243.4 cm/sec 524.2 msec LV V1 max: PA max P.3 mmHg TR max P.6 cm/sec 23.7 mmHg MV P1/2t-pr_phl: 84.5 msec Left Ventricle The left ventricle is normal in size. There is moderate concentric left ventricular hypertrophy. The left ventricular ejection fraction is within normal limits. LV EF is 70%. Doppler measurements suggest impaired left ventricular relaxation, which is associated with grade I/IV or mild diastolic dysfunction. The left ventricular wall motion is normal. There is no thrombus. There is no ventricular septal defect visualized. Right Ventricle The right ventricle is normal in size and function. The right ventricle is not well visualized secondary to technical limitations. Atria The right atrium is normal. The left atrial size is normal. The interatrial septum is intact with no evidence for an atrial septal defect. There is no Doppler evidence for an interatrial shunt. Mitral Valve There is mild mitral leaflet calcification. There is no evidence of mitral valve prolapse. There is no vegetation seen on the mitral valve. There is no mitral valve stenosis. There is a trace amount of mitral regurgitation. Aortic Valve There is no aortic valvular vegetation. There is no aortic valve stenosis. There is no LVOT obstruction. There is a mild amount of aortic regurgitation. Tricuspid Valve There is no tricuspid stenosis. There is a mild amount of tricuspid regurgitation. Upper normal to mild pulmonary hypertension.RVSP is29 to 34 mm of Hg , with RA mean of 5 to 10. Pulmonic Valve There is no pulmonic valvular stenosis. There is no pulmonic valvular regurgitation. Great Vessels The aortic root is normal size. The inferior vena cava appeared normal and decreased > 50% with respiration (RAP 5-10 mmHg). Effusions There is no pericardial effusion. : PRO KAMARA Lakshmi
[2019-01-18] MEDS: ATORVASTATIN CALCIUM 80 MG TABLET PO SCH (21:15)
[2019-01-19] MEDS: DIAZEPAM 5 MG TABLET PO SCH ×5 (01:00→23:29)
[2019-01-19] MEDS: NORMAL SALINE 1000 ML 1,000 ML IV PRN ×3 (05:44→22:00)
[2019-01-19] MEDS: INSULIN REG, HUMAN 100 UNIT/ML 3 ML VIAL (PYX) SUBCUT SCH ×4 (08:12→21:20)
[2019-01-19] MEDS: BUMETANIDE INJ/PF 1 MG/4 ML SDV IV SCH (08:13)
[2019-01-19] MEDS: DOCUSATE SODIUM 100 MG CAPSULE PO SCH ×2 (09:27→17:22)
[2019-01-19] MEDS: CARVEDILOL 12.5 MG TABLET PO SCH ×2 (09:27→22:38)
[2019-01-19] MEDS: AMLODIPINE BESYLATE 10 MG TABLET PO SCH (09:27)
[2019-01-19] MEDS: APIXABAN 5 MG TABLET PO SCH ×2 (09:27→17:22)
[2019-01-19] MEDS: ASPIRIN 81 MG TABLET, ENT COATED PO SCH (09:27)
[2019-01-19] MEDS: FAMOTIDINE 20 MG TABLET PO SCH ×2 (09:27→22:38)
--- NOTE | 2019-01-19 11:11 | PDOC PROGRESS REPORT ---
Subjective Progress Note for:: 01/19/19 Subjective:: This is 58 years old black male patient with past medical history of coronary artery disease, hypertension, hyperlipidemia, morbid obesity, type 2 diabetes mellitus, tobacco dependence referred from his primary care physician office of Dr. Bowie for hyperglycemia of 12.8. When patient checks at ER his calcium level is found to be 13.8. Of note patient recently discharged from this hospital after he suffered an acute ischemic stroke. Patient has been managed with aggressive hydration and IV diuretics. His latest calcium is 13.6. 01/15/2019: Patient still confused and sometimes combative. His latest calcium level is 12.8. He is being aggressively hydrated and is also on diuretics. Ultrasound of the neck is requested for possible solitary parathyroid adenoma. His PTH is elevated and PTH related protein is pending. 01/16/2019: Patient seen while resting in bed quietly. He responds appropriately to verbal stimuli. Is a bit lethargic. His complains that the Zyprexa make him to sweat profusely and asking me to discontinue Zyprexa. I tried to explain to her that patient is agitated and combative while he is being given Haldol so Zyprexa order to calm him down. But she insisted to to stop the medication. His thyroid scan for possible parathyroid adenoma is negative. Whole-body skeletal survey is also negative for osteolytic lesions. Still do not have explanation for his hypercalcemia even though his PTH is elevated mildly. Patient might have primary hyperparathyroidism or hypercalcemia of malignancy. 01/17/2019: Due to increased confusion I requested MRI of the brain this morning and the report is as positive for multiple acute nonhemorrhagic infarcts in the bilateral cerebellar hemispheres, right occipital cortex, splenium corpus callosum and multiple infarcts along the deep pericallosal white matter left side. Embolic infarcts favored over watershed ischemia. I contacted his [facility] for ELIA to rule out left ventricular thrombus. His [place] will take him today or Monday for ELIA. In the meantime empirically I started him on Eliquis 5 mg twice daily and I discontinued his heparin. I reviewed also his blood work was which shows his hypercalcemia is resolved and his magnesium was also corrected. On the other side patient has decreased urine output and is creatinine worsened at 4.69. 01/18/2019: Last night patient had an episode of agitation and combativeness which later he calm down. His blood work shows that his calcium level is slightly creeping up from 10.8 yesterday today it is 11 but his creatinine is trending down yesterday it was 4.692 date is 2.71. 01/19/2019: Patient seen sleeping while sitting on recliner. His vital signs are stable. Is able to produce adequate urine. No fever, chills, nausea, vomiting or diarrhea. He eats well and tolerates well. No focal weakness identified. I discussed the case with Dr. Sarabia and he recommended to continue the Eliquis and DC his Plavix. His echocardiogram reported as ejection fraction 70% no thrombus identified. Reason For Visit: HYPERCALCEMIA Physical Exam Vital Signs: Temp Pulse Resp BP Pulse Ox 97.7 F 81 20 159/103 H 99 01/18/19 19:15 01/19/19 07:00 01/18/19 19:15 01/18/19 19:15 01/18/19 19:15 Intake & Output 01/18/19 01/19/19 01/20/19 06:59 06:59 06:59 Intake Total 2720 2452 Output Total 2400 1050 Balance 320 1402 Weight 121 kg 123.8 kg General appearance: PRESENT: no acute distress Mouth exam: PRESENT: moist, tongue midline Neck exam: ABSENT: carotid bruit, JVD, lymphadenopathy, thyromegaly Respiratory exam: PRESENT: clear to auscultation luci. ABSENT: rales, rhonchi, wheezes Cardiovascular exam: PRESENT: RRR. ABSENT: diastolic murmur, rubs, systolic murmur GI/Abdominal exam: PRESENT: normal bowel sounds, soft. ABSENT: distended, guarding, mass, organolmegaly, rebound, tenderness Results Laboratory Results: 01/17/19 04:45 01/18/19 05:52 01/13/19 01/13/19 01/14/19 22:15 22:15 02:20 Creatine Kinase 81 Troponin I 0.021 0.019 Impressions: Chest X-Ray 01/13/19 22:15 IMPRESSION: Negative chest copyright 2010 [employer]- All Rights Reserved Renal Ultrasound 01/15/19 00:00 IMPRESSION: Both kidneys demonstrate increased echogenicity consistent with medical renal disease. Left renal cyst. Thyroid Ultrasound 01/15/19 00:00 IMPRESSION: NORMAL THYROID ULTRASOUND. Skeletal Survey 01/16/19 00:00 IMPRESSION: NO WORRISOME BONE LESIONS. Head MRI 01/17/19 00:00 IMPRESSION: Multiple acute nonhemorrhagic infarcts in multiple vascular distributions. Embolic infarcts favored over watershed ischemia. EVIDENCE OF ACUTE STROKE: Yes findings called to the attending physician, 1155 hours 01/17/2019. Assessment and Plan - Diagnosis (1) Acute metabolic encephalopathy Is this a current diagnosis for this admission?: Yes Plan: His acute encephalopathy is explained by the acute ischemic stroke, hypercalcemia and other metabolic abnormalities. (2) Severe hypercalcemia Is this a current diagnosis for this admission?: Yes Plan: His calcium is slightly is creeping up (3) Hypomagnesemia Is this a current diagnosis for this admission?: Yes Plan: Has resolved (4) Acute ischemic multifocal multiple vascular territories stroke Is this a current diagnosis for this admission?: Yes Plan: Patient transferred [facility] for ELIA but a ELIA not done because the c ardiologist Dr. Pimentel states that ELIA will miss left ventricle thrombus.. In the meantime patient has been started on Eliquis 5 mg twice daily. Plavix discontinued. (5) Acute kidney injury Is this a current diagnosis for this admission?: Yes Plan: His kidney function has markedly worsened. His creatinine jumped to 4.69. Patient has been aggressively hydrated with normal saline at rate of 200 mL/h. (6) Type 2 diabetes mellitus Is this a current diagnosis for this admission?: Yes Plan: Continue sliding scale and metformin. (7) Hypertension Qualifiers: Hypertension type: essential hypertension Qualified Code(s): I10 - Essential (primary) hypertension Is this a current diagnosis for this admission?: Yes Plan: Continue his home medication (8) Morbid obesity with BMI of 40.0-44.9, adult Is this a current diagnosis for this admission?: Yes Plan: Lifestyle modification advised
[2019-01-19] MEDS: ATORVASTATIN CALCIUM 80 MG TABLET PO SCH (22:38)
[2019-01-20] MEDS: NORMAL SALINE 1000 ML 1,000 ML IV PRN ×4 (05:08→21:42)
[2019-01-20 05:13] LABS: ALBUMIN 3.4 g/dL (3.5-5.0); ALKALINE PHOSPHATASE 78 U/L (38-126); ASPARTATE AMINO TRANSFERASE 35 U/L (17-59); BILIRUBIN,DIRECT 0.3 mg/dL (0.0-0.4); BILIRUBIN,TOTAL 0.3 mg/dL (0.2-1.3); BLOOD UREA NITROGEN 27 mg/dL (7-20); CALCIUM 10.1 mg/dL (8.4-10.2); CARBON DIOXIDE 23 mmol/L (22-30); GLUCOSE 154 mg/dL (75-110); POTASSIUM 3.4 mmol/L (3.6-5.0); TOTAL PROTEIN 6.5 g/dL (6.3-8.2)
[2019-01-20 05:15] LABS: ANION GAP 10 (5-19); CHLORIDE 110 mmol/L (98-107)
[2019-01-20] MEDS: DIAZEPAM 5 MG TABLET PO SCH ×4 (06:43→23:51)
[2019-01-20] MEDS: BUMETANIDE INJ/PF 1 MG/4 ML SDV IV SCH (07:53)
[2019-01-20] MEDS: INSULIN REG, HUMAN 100 UNIT/ML 3 ML VIAL (PYX) SUBCUT SCH ×4 (07:53→23:34)
[2019-01-20] MEDS: CARVEDILOL 12.5 MG TABLET PO SCH ×2 (10:50→21:41)
[2019-01-20] MEDS: ASPIRIN 81 MG TABLET, ENT COATED PO SCH (10:50)
[2019-01-20] MEDS: FAMOTIDINE 20 MG TABLET PO SCH ×2 (10:50→21:41)
[2019-01-20] MEDS: AMLODIPINE BESYLATE 10 MG TABLET PO SCH (10:50)
[2019-01-20] MEDS: DOCUSATE SODIUM 100 MG CAPSULE PO SCH ×2 (10:51→17:15)
[2019-01-20] MEDS: APIXABAN 5 MG TABLET PO SCH ×2 (10:51→17:15)
--- NOTE | 2019-01-20 11:20 | PDOC PROGRESS REPORT ---
Subjective Progress Note for:: 01/20/19 Subjective:: This is 58 years old black male patient with past medical history of coronary artery disease, hypertension, hyperlipidemia, morbid obesity, type 2 diabetes mellitus, tobacco dependence referred from his primary care physician office of Dr. Bowie for hyperglycemia of 12.8. When patient checks at ER his calcium level is found to be 13.8. Of note patient recently discharged from this hospital after he suffered an acute ischemic stroke. Patient has been managed with aggressive hydration and IV diuretics. His latest calcium is 13.6. 01/15/2019: Patient still confused and sometimes combative. His latest calcium level is 12.8. He is being aggressively hydrated and is also on diuretics. Ultrasound of the neck is requested for possible solitary parathyroid adenoma. His PTH is elevated and PTH related protein is pending. 01/16/2019: Patient seen while resting in bed quietly. He responds appropriately to verbal stimuli. Is a bit lethargic. His complains that the Zyprexa make him to sweat profusely and asking me to discontinue Zyprexa. I tried to explain to her that patient is agitated and combative while he is being given Haldol so Zyprexa order to calm him down. But she insisted to to stop the medication. His thyroid scan for possible parathyroid adenoma is negative. Whole-body skeletal survey is also negative for osteolytic lesions. Still do not have explanation for his hypercalcemia even though his PTH is elevated mildly. Patient might have primary hyperparathyroidism or hypercalcemia of malignancy. 01/17/2019: Due to increased confusion I requested MRI of the brain this morning and the report is as positive for multiple acute nonhemorrhagic infarcts in the bilateral cerebellar hemispheres, right occipital cortex, splenium corpus callosum and multiple infarcts along the deep pericallosal white matter left side. Embolic infarcts favored over watershed ischemia. I contacted his [facility] for ELIA to rule out left ventricular thrombus. His [place] will take him today or Monday for ELIA. In the meantime empirically I started him on Eliquis 5 mg twice daily and I discontinued his heparin. I reviewed also his blood work was which shows his hypercalcemia is resolved and his magnesium was also corrected. On the other side patient has decreased urine output and is creatinine worsened at 4.69. 01/18/2019: Last night patient had an episode of agitation and combativeness which later he calm down. His blood work shows that his calcium level is slightly creeping up from 10.8 yesterday today it is 11 but his creatinine is trending down yesterday it was 4.692 date is 2.71. 01/19/2019: Patient seen sleeping while sitting on recliner. His vital signs are stable. Is able to produce adequate urine. No fever, chills, nausea, vomiting or diarrhea. He eats well and tolerates well. No focal weakness identified. I discussed the case with Dr. Sarabia and he recommended to continue the Eliquis and DC his Plavix. His echocardiogram reported as ejection fraction 70% no thrombus identified. 01/20/2019: This patient admitted 7 days ago with acute confusional states, acute kidney injury, and severe hypercalcemia with calcium level at 14. Patient has been started on IV diuretics and aggressive hydration. During his stay patient also developed hypokalemia and hypomagnesemia which has been corrected. Patient has been worked up for hypercalcemia with ultrasound of the neck which is negative for parathyroid nodule, PTH which is mildly elevated and also whole- body skeletal survey which is negative for lytic lesions. PTH related protein result is pending. Currently hypercalcemia is corrected with aggressive IV hydration diuretics and zoledronic acid. His hospital course is complicated by multiple acute nonhemorrhagic infarcts in the bilateral cerebellar hemispheres, right occipital cortex splenium corpus callosum and multiple infarcts along the deep tyrone-callosal white matter on the left side. Patient had had similar ischemic stroke in November of this year. Currently patient is empirically started on Eliquis 5 mg twice daily. Patient may benefit from rehab placement. Reason For Visit: HYPERCALCEMIA Physical Exam Vital Signs: Temp Pulse Resp BP Pulse Ox 97.4 F 65 18 134/77 H 95 01/20/19 07:48 01/20/19 07:48 01/20/19 07:48 01/20/19 07:48 01/20/19 07:48 Intake & Output 01/19/19 01/20/19 01/21/19 06:59 06:59 06:59 Intake Total 2452 3440 1000 Output Total 1050 975 Balance 1402 2465 1000 Weight 123.8 kg 124.4 kg General appearance: PRESENT: no acute distress Mouth exam: PRESENT: moist, tongue midline Neck exam: ABSENT: carotid bruit, JVD, lymphadenopathy, thyromegaly Respiratory exam: PRESENT: clear to auscultation luci. ABSENT: rales, rhonchi, wheezes Cardiovascular exam: PRESENT: RRR. ABSENT: diastolic murmur, rubs, systolic murmur Results Laboratory Results: 01/17/19 04:45 01/20/19 04:20 01/20/19 04:20 Sodium 142.5 Potassium 3.4 L Chloride 110 H Carbon Dioxide 23 Anion Gap 10 BUN 27 H Creatinine 2.03 H Est GFR ( Amer) 41 L Glucose 154 H Calcium 10.1 Total Bilirubin 0.3 AST 35 Alkaline Phosphatase 78 Total Protein 6.5 Albumin 3.4 L 01/13/19 01/13/19 01/14/19 22:15 22:15 02:20 Creatine Kinase 81 Troponin I 0.021 0.019 Impressions: Chest X-Ray 01/13/19 22:15 IMPRESSION: Negative chest copyright 2011 [employer]- All Rights Reserved Renal Ultrasound 01/15/19 00:00 IMPRESSION: Both kidneys demonstrate increased echogenicity consistent with medical renal disease. Left renal cyst. Thyroid Ultrasound 01/15/19 00:00 IMPRESSION: NORMAL THYROID ULTRASOUND. Skeletal Survey 01/16/19 00:00 IMPRESSION: NO WORRISOME BONE LESIONS. Head MRI 01/17/19 00:00 IMPRESSION: Multiple acute nonhemorrhagic infarcts in multiple vascular distributions. Embolic infarcts favored over watershed ischemia. EVIDENCE OF ACUTE STROKE: Yes findings called to the attending physician, 1155 hours 01/17/2019. Assessment and Plan - Diagnosis (1) Acute metabolic encephalopathy Is this a current diagnosis for this admission?: Yes Plan: His acute encephalopathy is explained by the acute ischemic stroke, hypercalcemia and other metabolic abnormalities. (2) Severe hypercalcemia Is this a current diagnosis for this admission?: Yes Plan: His calcium is slightly is creeping up (3) Hypomagnesemia Is this a current diagnosis for this admission?: Yes Plan: Has resolved (4) Acute ischemic multifocal multiple vascular territories stroke Is this a current diagnosis for this admission?: Yes Plan: Patient transferred [facility] for ELIA but a ELIA not done because the police patrol officer Dr. Pimentel states that ELIA will miss left ventricle thrombus.. In the meantime patient has been started on Eliquis 5 mg twice daily. Plavix discontinued. (5) Acute kidney injury Is this a current diagnosis for this admission?: Yes Plan: His kidney function has markedly worsened. His creatinine jumped to 4.69. Patient has been aggressively hydrated with normal saline at rate of 200 mL/h. (6) Type 2 diabetes mellitus Is this a current diagnosis for this admission?: Yes Plan: Continue sliding scale and metformin. (7) Hypertension Qualifiers: Hypertension type: essential hypertension Qualified Code(s): I10 - Essential (primary) hypertension Is this a current diagnosis for this admission?: Yes Plan: Continue his home medication (8) Morbid obesity with BMI of 40.0-44.9, adult Is this a current diagnosis for this admission?: Yes Plan: Lifestyle modification advised
[2019-01-20] MEDS: ATORVASTATIN CALCIUM 80 MG TABLET PO SCH (21:41)
--- NOTE | 2019-01-20 23:32 | PDOC CONSULTATION ---
Consultation Consult Date: 01/20/19 Attending physician:: MO DIEZ Provider Consulted: LORRAINE WASHINGTON Consult reason:: Buttock laceration History of Present Illness Admission Date/PCP: 01/13/19 23:53 ETHAN HILL MD History of Present Illness: SEBLE HIGH is a 58 year old male Patient has been hospitalized at [facility] for over a week for acute renal failure, hypercalcemia and instability of diabetes mellitus. According to patient's , patient fell in the shower onto a control approximately 2-1/2 weeks ago. He sustained a laceration to his iris cleft at the level of the coccyx. She has been doing dressing changes with Telfa. He wa s evaluated this evening hospitalist service and was assessed to have a laceration of his buttock and surgery was consulted. Past Medical History Cardiac Medical History: Reports: Coronary Artery Disease, Hypertension Denies: Myocardial Infarction Pulmonary Medical History: Denies: Asthma, Chronic Obstructive Pulmonary Disease (COPD) EENT Medical History: Denies: Cataracts, Ears - Hearing aids Neurological Medical History: Reports: Ischemic CVA Denies: Hemorrhagic CVA, Seizures Endocrine Medical History: Reports: Diabetes Mellitus Type 2, Obesity Denies: Diabetes Mellitus Type 1, Hyperthyroidism, Hypothyroidism Renal/ Medical History: Denies: Chronic Kidney Disease, Nephrolithiasis Malignancy Medical History: Reports: None GI Medical History: Denies: Cirrhosis, Crohn's Disease, Hepatitis, Ulcerative Colitis Musculoskeltal Medical History: Denies: Arthritis, Gout Skin Medical History: Denies: Eczema, Psoriasis Psychiatric Medical History: Reports: Tobacco Dependency Denies: Alcohol Dependency, Substance Abuse Traumatic Medical History: Reports: None Hematology: Denies: Anemia, Bleeding Tendencies Infectious Medical History: Reports: None Past Surgical History Past Surgical History: Reports: None Social History Lives with: Spouse/Significant other Smoking Status: Current Every Day Smoker Cigarettes Packs Per Day: 1 Number of Years Smokin Last Time Smoked: y Frequency of Alcohol Use: None Hx Recreational Drug Use: No Drugs: None Hx Prescription Drug Abuse: No - Advance Directive Resuscitation Status: Full Code Family History Family History: DM, Hypertension. denies: CAD, Malignancy Parental Family History Reviewed: No Children Family History Reviewed: No Sibling(s) Family History Reviewed.: No Medication/Allergy Home Medications: Amlodipine Besylate [Norvasc 10 mg Tablet] 10 mg PO DAILY 01/14/19 Aspirin [Ecotrin 81 mg EC Tablet] 81 mg PO DAILY 01/14/19 Atorvastatin Calcium [Lipitor 80 mg Tablet] 80 mg PO QHS 01/14/19 Carvedilol [Coreg 25 mg Tablet] 1 tab PO Q12 01/14/19 Clopidogrel Bisulfate [Plavix 75 mg Tablet] 75 mg PO DAILY 01/14/19 Lisinopril/Hydrochlorothiazide [Lisinopril-Hctz 20-25 mg Tab] 1 each PO DAILY 01/14/19 Allergies/Adverse Reactions: No Known Allergies Allergy (Unverified 01/13/19 22:38) Review of Systems ROS unobtainable: Other - See previous review of systems Physical Exam Vital Signs: Temp Pulse Resp BP Pulse Ox 97.8 F 77 20 145/84 H 98 01/20/19 20:30 01/20/19 20:30 01/20/19 20:30 01/20/19 20:30 01/20/19 20:30 Intake & Output 01/19/19 01/20/19 01/21/19 06:59 06:59 06:59 Intake Total 2452 3440 3578 Output Total 1704 994 8956 Balance 1402 2465 903 Weight 123.8 kg 124.4 kg General appearance: PRESENT: no acute distress, other - Patient is assisted to roll to his right lateral decubitus position. GI/Abdominal exam: PRESENT: soft Extremities exam: PRESENT: +2 edema Skin exam: PRESENT: other - In the cleft at the level of the coccyx is a 2 x 3 cm open, granulating wound, approximately 1/2 cm deep, clean, non-foul smell no drainage; surrounding skin is intact. Results Laboratory Results: 01/17/19 04:45 01/20/19 04:20 01/20/19 04:20 Sodium 142.5 Potassium 3.4 L Chloride 110 H Carbon Dioxide 23 Anion Gap 10 BUN 27 H Creatinine 2.03 H Est GFR ( Amer) 41 L Glucose 154 H Calcium 10.1 Total Bilirubin 0.3 AST 35 Alkaline Phosphatase 78 Total Protein 6.5 Albumin 3.4 L 01/13/19 01/13/19 01/14/19 22:15 22:15 02:20 Creatine Kinase 81 Troponin I 0.021 0.019 Impressions: Chest X-Ray 01/13/19 22:15 IMPRESSION: Negative chest copyright 2010 [employer]- All Rights Reserved Renal Ultrasound 01/15/19 00:00 IMPRESSION: Both kidneys demonstrate increased echogenicity consistent with medical renal disease. Left renal cyst. Thyroid Ultrasound 01/15/19 00:00 IMPRESSION: NORMAL THYROID ULTRASOUND. Skeletal Survey 01/16/19 00:00 IMPRESSION: NO WORRISOME BONE LESIONS. Head MRI 01/17/19 00:00 IMPRESSION: Multiple acute nonhemorrhagic infarcts in multiple vascular distributions. Embolic infarcts favored over watershed ischemia. EVIDENCE OF ACUTE STROKE: Yes findings called to the attending physician, 1155 hours 01/17/2019. Assessment & Plan - Diagnosis (1) Sacral wound Is this a current diagnosis for this admission?: Yes Plan: Impression: Technically this is a iris cleft wound at the level of the coccyx, several centimeters posterior to the anal verge. It is posttraumatic in nature, 2 and half weeks old, granulating and by secondary intention. No indication for debridement. Recommendations: 1. No indication for debridement or primary closure at this stage; wound to close by secondary intention 2. Pressure offloading indicated; orders for dressing changes including soapy water wash, blot dry, then application of Allevyn dressing 3. Surgery will sign off; reconsult if clinically indicated (2) Acute kidney injury Is this a current diagnosis for this admission?: Yes (3) CAD (coronary artery disease) Qualifiers: Coronary Disease-Associated Artery/Lesion type: [place] artery [place] vs. transplanted heart: [place] heart Associated angina: without angina Qualified Code(s): I25.10 - Atherosclerotic heart disease of [place] coronary artery without angina pectoris Is this a current diagnosis for this admission?: Yes (4) Morbid obesity with BMI of 40.0-44.9, adult Is this a current diagnosis for this admission?: Yes (5) Type 2 diabetes mellitus Is this a current diagnosis for this admission?: Yes
[2019-01-21] MEDS: NORMAL SALINE 1000 ML 1,000 ML IV PRN ×4 (02:24→21:19)
[2019-01-21 05:46] LABS: ANION GAP 6 (5-19); BLOOD UREA NITROGEN 19 mg/dL (7-20); CALCIUM 9.4 mg/dL (8.4-10.2); CARBON DIOXIDE 22 mmol/L (22-30); CHLORIDE 118 mmol/L (98-107); GLUCOSE 121 mg/dL (75-110); POTASSIUM 3.4 mmol/L (3.6-5.0)
[2019-01-21] MEDS: DIAZEPAM 5 MG TABLET PO SCH ×4 (07:00→23:24)
[2019-01-21] MEDS: BUMETANIDE INJ/PF 1 MG/4 ML SDV IV SCH (08:45)
[2019-01-21] MEDS: INSULIN REG, HUMAN 100 UNIT/ML 3 ML VIAL (PYX) SUBCUT SCH ×4 (08:45→22:02)
[2019-01-21] MEDS: CARVEDILOL 12.5 MG TABLET PO SCH ×2 (11:04→21:19)
[2019-01-21] MEDS: ASPIRIN 81 MG TABLET, ENT COATED PO SCH (11:04)
[2019-01-21] MEDS: FAMOTIDINE 20 MG TABLET PO SCH ×2 (11:04→21:19)
[2019-01-21] MEDS: APIXABAN 5 MG TABLET PO SCH ×2 (11:04→17:14)
[2019-01-21] MEDS: DOCUSATE SODIUM 100 MG CAPSULE PO SCH ×2 (11:04→17:14)
[2019-01-21] MEDS: AMLODIPINE BESYLATE 10 MG TABLET PO SCH (11:04)
[2019-01-21] MEDS: POTASSIUM CHLORIDE 10 MEQ CAPSULE.ER PO SCH (11:07)
--- NOTE | 2019-01-21 11:58 | PDOC PROGRESS REPORT ---
Subjective Progress Note for:: 01/21/19 Subjective:: Patient has been stable. Today I see him with his at bedside and he seems to be slightly slow in response to questioning. This was somewhat different when I saw him last Monday by himself without the when he could answer questions back to her. He did not have any complaints. confirms that the patient is eating better but not drinking enough. He has good urine output 2825 mL for the last 24 hours. Reason For Visit: HYPERCALCEMIA Physical Exam Vital Signs: Temp Pulse Resp BP Pulse Ox 97.8 F 69 16 150/82 H 96 01/21/19 07:40 01/21/19 07:40 01/21/19 07:40 01/21/19 07:40 01/21/19 07:40 Intake & Output 01/20/19 01/21/19 01/22/19 06:59 06:59 06:59 Intake Total 3440 4518 920 Output Total 975 2825 Balance 2465 1693 920 Weight 124.4 kg 126.2 kg Exam: General appearance: PRESENT: no acute distress, cooperative, well-developed, well-nourished Head exam: PRESENT: atraumatic, normocephalic Eye exam: PRESENT: conjunctiva pink, PERRLA. ABSENT: scleral icterus Neck exam: ABSENT: JVD Respiratory exam: PRESENT: Normal breath sounds. ABSENT: crackles, rales, rhonchi, unlabored, wheezes Cardiovascular exam: PRESENT: Regular rate rhythm -+S1, +S2. ABSENT: diastolic murmur, systolic murmur GI/Abdominal exam: PRESENT: normal bowel sounds, soft. ABSENT: guarding, mass, tenderness Extremities exam: ABSENT: No edema Neurological exam: PRESENT: alert, awake, oriented to person, place but not to time. Skin exam: PRESENT: dry, warm, Cardiovascular exam: PRESENT: +S1, +S2 GI/Abdominal exam: PRESENT: normal bowel sounds, soft. ABSENT: organomegaly, tenderness Results Laboratory Results: 01/17/19 04:45 01/21/19 05:04 01/21/19 05:04 Sodium 145.5 H Potassium 3.4 L Chloride 118 H Carbon Dioxide 22 Anion Gap 6 BUN 19 Creatinine 1.88 H Est GFR ( Amer) 45 L Glucose 121 H Calcium 9.4 08/01/13/19 01/14/19 22:15 22:15 02:20 Creatine Kinase 81 Troponin I 0.021 0.019 Impressions: Chest X-Ray 01/13/19 22:15 IMPRESSION: Negative chest copyright 2010 [employer]- All Rights Reserved Renal Ultrasound 01/15/19 00:00 IMPRESSION: Both kidneys demonstrate increased echogenicity consistent with medical renal disease. Left renal cyst. Thyroid Ultrasound 01/15/19 00:00 IMPRESSION: NORMAL THYROID ULTRASOUND. Skeletal Survey 01/16/19 00:00 IMPRESSION: NO WORRISOME BONE LESIONS. Head MRI 01/17/19 00:00 IMPRESSION: Multiple acute nonhemorrhagic infarcts in multiple vascular distributions. Embolic infarcts favored over watershed ischemia. EVIDENCE OF ACUTE STROKE: Yes findings called to the attending physician, 1155 hours 01/17/2019. Assessment & Plan - Diagnosis (1) Acute kidney injury Is this a current diagnosis for this admission?: Yes Plan: Patient came in with acute kidney injury secondary to prerenal azotemia due to severe dehydration. It was improving until last Monday when he had an episode of hypotension for most of the day. So his kidney function has worsened yesterday to have a creatinine of 4.69. He made about 2825mL of urine output for the last 24 hours. His kidney function also continues to improve with creatinine of 1.88 now. We will continue to monitor kidney function. The umair ent does not need any renal placement therapy today. Baseline kidney function is unknown at this point. Patient's denies any known kidney problems although she mentioned that she he had kidney stones in the past. Kidney ultrasound done showed increased echogenicity, normal size kidneys without any solid or suspicious masses and a left renal cyst. Decrease IV fluids 250 mL an hour. (2) Hypercalcemia Is this a current diagnosis for this admission?: Yes Plan: Etiology still uncertain at this point. He has mildly elevated PTH, low phosphorus, vitamin D level is normal, PTH-rP is negative, ultrasound showing no evidence of parathyroid nodules. Skeletal bone survey was also negative for any bone lesions. A 24-hour urine calcium is pending. Current calcium level is within normal limits with IV fluid hydration. During his admission he was given Zolendronic acid and calcitonin. Serum protein electrophoresis is pending. I think it may be worthwhile to do a parathyroid sestamibi scan even though her thyroid ultrasound is negative for any parathyroid abnormality. Will defer to Dr. Espinosa. (3) Acute ischemic multifocal multiple vascular territories stroke Is this a current diagnosis for this admission?: Yes Plan: On MRI the patient has new bilateral cerebellar infarcts and right occipital infarct compared to previous imaging study in November. Patient was started on Eliquis by hospitalist service. ELIA was arranged and ordered to be done at [facility] today but unfortunately it was canceled for what ever reason. Patient continues to have waxing and waning mental status. (4) Acute metabolic encephalopathy Is this a current diagnosis for this admission?: Yes Plan: This could likely be secondary to hypercalcemia as well as the acute brain infarcts. Mental status continues to be labile. (5) HTN (hypertension) Qualifiers: Hypertension type: essential hypertension Qualified Code(s): I10 - Essential (primary) hypertension Is this a current diagnosis for this admission?: Yes Plan: Currently within acceptable limits. (6) Diabetes mellitus type 2 in obese Is this a current diagnosis for this admission?: Yes Plan: Well-controlled. - Time Time with patient: 15-25 minutes
--- NOTE | 2019-01-21 17:01 | PDOC PROGRESS REPORT ---
Subjective Progress Note for:: 01/21/19 Subjective:: Patient is sitting in a chair. His is brushing his teeth. Reason For Visit: HYPERCALCEMIA Physical Exam Vital Signs: Temp Pulse Resp BP Pulse Ox 97.2 F 74 16 137/91 H 100 01/21/19 11:39 01/21/19 14:00 01/21/19 11:39 01/21/19 11:39 01/21/19 11:39 Intake & Output 01/20/19 01/21/19 01/22/19 06:59 06:59 06:59 Intake Total 3440 4518 920 Output Total 975 2825 Balance 5525 1693 920 Weight 124.4 kg 126.2 kg General appearance: PRESENT: no acute distress, cooperative, well-developed Head exam: PRESENT: atraumatic, normocephalic Eye exam: PRESENT: conjunctiva pink. ABSENT: scleral icterus Mouth exam: PRESENT: moist, tongue midline Respiratory exam: PRESENT: clear to auscultation luci, symmetrical, unlabored. ABSENT: rales, rhonchi, tachypnea, wheezes Cardiovascular exam: PRESENT: RRR, +S1, +S2 GI/Abdominal exam: PRESENT: normal bowel sounds, soft. ABSENT: distended, guarding, tenderness Rectal exam: PRESENT: deferred Neurological exam: PRESENT: alert, awake, oriented to person, oriented to place, oriented to situation Psychiatric exam: PRESENT: flat affect. ABSENT: agitated, anxious Focused psych exam: ABSENT: delusional, restlessness Skin exam: PRESENT: dry, normal color, warm. ABSENT: rash Results Laboratory Results: 01/17/19 04:45 01/21/19 05:04 01/21/19 05:04 Sodium 145.5 H Potassium 3.4 L Chloride 118 H Carbon Dioxide 22 Anion Gap 6 BUN 19 Creatinine 1.88 H Est GFR ( Amer) 45 L Glucose 121 H Calcium 9.4 01/13/19 01/13/19 01/14/19 22:15 22:15 02:20 Creatine Kinase 81 Troponin I 0.021 0.019 Impressions: Chest X-Ray 01/13/19 22:15 IMPRESSION: Negative chest copyright 2011 [employer]- All Rights Reserved Renal Ultrasound 01/15/19 00:00 IMPRESSION: Both kidneys demonstrate increased echogenicity consistent with medical renal disease. Left renal cyst. Thyroid Ultrasound 01/15/19 00:00 IMPRESSION: NORMAL THYROID ULTRASOUND. Skeletal Survey 01/16/19 00:00 IMPRESSION: NO WORRISOME BONE LESIONS. Head MRI 01/17/19 00:00 IMPRESSION: Multiple acute nonhemorrhagic infarcts in multiple vascular di stributions. Embolic infarcts favored over watershed ischemia. EVIDENCE OF ACUTE STROKE: Yes findings called to the attending physician, 1155 hours 01/17/2019. Assessment and Plan - Diagnosis (1) Acute metabolic encephalopathy Is this a current diagnosis for this admission?: Yes Plan: Most likely related to the multifocal infarcts. Marked improvement is noted. (2) Severe hypercalcemia Is this a current diagnosis for this admission?: Yes Plan: Serum calcium is back in the normal range. Continue to monitor. (3) Acute ischemic multifocal multiple vascular territories stroke Is this a current diagnosis for this admission?: Yes Plan: The patient has multiple infarcts in multiple areas. The majority seem to be in the cerebellum. He was sent out for a transesophageal echocardiogram but his refused to consent. It is a test that he should have as an outpatient. In the meantime he will stay on apixaban and aspirin daily. He will need at least physical therapy and Occupational Therapy as well as possible speech therapy at discharge. I explained to him that he needs to be compliant or he will not get better. (4) Hypomagnesemia Is this a current diagnosis for this admission?: Yes Plan: Several days ago the serum magnesium was up to 2.1. I put an order in to check magnesium levels tomorrow. Supplement magnesium based on results. (5) Acute kidney injury Is this a current diagnosis for this admission?: Yes Plan: The patient's serum creatinine is down to 1.88. This is from a max of greater than 4 during his hospitalization. Continue current regimen including monitoring intake and output. Please also see nephrology note. 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 Accu-Cheks are reasonably well controlled. He might benefit from low-dose metformin once his renal function improves. (7) HTN (hypertension) Qualifiers: Hypertension type: essential hypertension Qualified Code(s): I10 - Essential (primary) hypertension Is this a current diagnosis for this admission?: Yes Plan: Continue amlodipine, Coreg and Bumex. Try to keep the systolic pressure less than 140 and the diastolic pressure less than 90. (8) Morbid obesity with BMI of 40.0-44.9, adult Is this a current diagnosis for this admission?: Yes Plan: The patient's BMI is 41.1. He should consider expanding his rehab from his stroke to a full exercise program when he is able. He must also utilize dietary discretion.
[2019-01-21] MEDS: ATORVASTATIN CALCIUM 80 MG TABLET PO SCH (21:19)
[2019-01-22] MEDS: NORMAL SALINE 1000 ML 1,000 ML IV PRN ×3 (02:25→19:59)
[2019-01-22] MEDS: DIAZEPAM 5 MG TABLET PO SCH ×3 (05:03→17:10)
[2019-01-22 06:00] LABS: ANION GAP 8 (5-19); BLOOD UREA NITROGEN 13 mg/dL (7-20); CARBON DIOXIDE 21 mmol/L (22-30); CHLORIDE 118 mmol/L (98-107); GLUCOSE 118 mg/dL (75-110); POTASSIUM 3.5 mmol/L (3.6-5.0)
[2019-01-22] MEDS: INSULIN REG, HUMAN 100 UNIT/ML 3 ML VIAL (PYX) SUBCUT SCH ×4 (07:18→21:52)
--- NOTE | 2019-01-22 08:30 | PDOC PROGRESS REPORT ---
Subjective Progress Note for:: 01/22/19 Subjective:: 58 year old male who presented to the emergency room after finally retrieving a voice message his age from Dr. Bowie from Monday telling him that his serum calcium was too high (12.8) and he needed to come to the emergency room for treatment. He admits a history of hypercalcemia in the past. He denies associated or accompanying symptoms. He has not identified any aggravating or ameliorating factors for his hypercalcemia. In the emergency room he was found to have a calcium of 14.0 with a creatinine of 3.18 and a BUN of 70 both of which were increased over his values obtained 2 days ago showing a BUN of 21 and a creatinine of 1.29. Patient was subsequently admitted to the hospital for further evaluation and treatment. 01/[id number]-twzr-old male admitted with hypercalcemia nephrology on board. Calcium level is 10 today all the work-up for hypercalcemia is negative so far. Dr. Powers is recommending parathyroid scan. We do not have that availability in this hospital. Patient is still on IV fluids at 150 cc/h creatinine went back up to 2.06 today. Comfortably sitting on the edge of the bed eating his breakfast. Not in distress. No complaints no concerns expressed by the patient. Reason For Visit: HYPERCALCEMIA Physical Exam Vital Signs: Temp Pulse Resp BP Pulse Ox 98.4 F 85 20 153/93 H 98 01/21/19 23:28 01/22/19 07:00 01/22/19 04:23 01/22/19 04:23 01/22/19 04:23 Intake & Output 01/21/19 01/22/19 01/23/19 06:59 06:59 06:59 Intake Total 4518 5410 Output Total 2825 1975 Balance 1693 3435 Weight 126.2 kg 122 kg General appearance: PRESENT: no acute distress, cooperative Head exam: PRESENT: atraumatic Eye exam: PRESENT: PERRLA Mouth exam: PRESENT: moist, tongue midline Teeth exam: PRESENT: poor dentation Neck exam: ABSENT: carotid bruit, JVD, lymphadenopathy, thyromegaly Respiratory exam: PRESENT: clear to auscultation luci. ABSENT: rales, rhonchi, wheezes Pulses: PRESENT: normal dorsalis pedis pul GI/Abdominal exam: PRESENT: normal bowel sounds, soft. ABSENT: distended, guarding, mass, organolmegaly, rebound, tenderness Rectal exam: PRESENT: deferred Extremities exam: PRESENT: full ROM. ABSENT: calf tenderness, clubbing, pedal edema Neurological exam: PRESENT: alert, awake, oriented to person, oriented to place, oriented to time, oriented to situation, CN II-XII grossly intact. ABSENT: motor sensory deficit Results Laboratory Results: 01/17/19 04:45 01/22/19 05:30 01/22/19 05:30 Sodium 146.5 H Potassium 3.5 L Chloride 118 H Carbon Dioxide 21 L Anion Gap 8 BUN 13 Creatinine 2.06 H Est GFR ( Amer) 40 L Glucose 118 H Calcium 10.0 Magnesium 1.7 01/13/19 01/13/19 01/14/19 22:15 22:15 02:20 Creatine Kinase 81 Troponin I 0.021 0.019 Impressions: Chest X-Ray 01/13/19 22:15 IMPRESSION: Negative chest copyright 2011 [employer]- All Rights Reserved Renal Ultrasound 01/15/19 00:00 IMPRESSION: Both kidneys demonstrate increased echogenicity consistent with medical renal disease. Left renal cyst. Thyroid Ultrasound 01/15/19 00:00 IMPRESSION: NORMAL THYROID ULTRASOUND. Skeletal Survey 01/16/19 00:00 IMPRESSION: NO WORRISOME BONE LESIONS. Head MRI 01/17/19 00:00 IMPRESSION: Multiple acute nonhemorrhagic infarcts in multiple vascular distributions. Embolic infarcts favored over watershed ischemia. EVIDENCE OF ACUTE STROKE: Yes findings called to the attending physician, 1155 hours 01/17/2019. Assessment and Plan - Diagnosis (1) Acute ischemic multifocal multiple vascular territories stroke Is this a current diagnosis for this admission?: Yes Plan: The patient has multiple infarcts in multiple areas. The majority seem to be in the cerebellum. He was sent out for a transesophageal echocardiogram but his refused to consent. It is a test that he should have as an outpatient. In the meantime he will stay on apixaban and aspirin daily. He will need at least physical therapy and Occupational Therapy as well as possible speech therapy at discharge. I explained to him that he needs to be compliant or he will not get better. 01/22/2019-pt has h/o multiple strokes and on aphixaban and aspirin.. refused EILA. plan is to discharge him to [facility] once is stable. (2) Acute kidney injury Is this a current diagnosis for this admission?: Yes Plan: The patient's serum creatinine is down to 1.88. This is from a max of greater than 4 during his hospitalization. Continue current regimen including monitoring intake and output. Please also see nephrology note. 01/22/2019-patient serum creatinine is 2.08 he is on normal saline at 150 cc/h creatinine worsened from 1.88-2.08 today. At the time of admission serum creatinine is 4.0. STU most likely secondary to prerenal causes resolving. (3) Acute metabolic encephalopathy Is this a current diagnosis for this admission?: Yes Plan: Most likely related to the multifocal infarcts. Marked improvement is noted. 01/22/2019-patient has history of multiple strokes present mental status is at baseline. (4) Diabetes mellitus type 2 in obese Is this a current diagnosis for this admission?: Yes Plan: Patient will be continued on his current diabetic regiment and diabetic diet. Before meals and at bedtime Accu-Cheks will be performed with hyperglycemia being treated with sliding scale insulin and hypoglycemia being treated with the hypoglycemic protocol. 01/22/2019-patient blood sugar today is 118. Patient is on insulin sliding scale before meals and at bedtime plan is to continue the present management and dietary consult will be requested. Plan to check hemoglobin A1c. (5) HTN (hypertension) Qualifiers: Hypertension type: essential hypertension Qualified Code(s): I10 - Essential (primary) hypertension Is this a current diagnosis for this admission?: Yes Plan: Continue amlodipine, Coreg and Bumex. Try to keep the systolic pressure less than 140 and the diastolic pressure less than 90. 01/22/2019-patient blood pressure today is 153/93. He is receiving normal saline at 150 cc/h and he is also on Coreg, amlodipine and Bumex. Plan is to continue the present management. (6) Hypercalcemia Is this a current diagnosis for this admission?: Yes Plan: Patient will be treated with IV fluids utilizing normal saline, diuretics utilizing Bumex, calcitonin administered intravenously at 4 units per kilogram and due to severe acute renal failure biphosphonate's would not be used, however denosumab will be used if available. Patient will have metabolic profiles performed every 6 hours and will be reassessed for further therapy ongoing. 01/22/2019-latest serum calcium is 10.0 on IV fluids normal saline at 150 cc/h he is also on Bumex at this point. He received calcitonin at the time of admission in the ER. Is going for a parathyroid scan today. Thyroid ultrasound was normal PTH is slightly elevated, skeletal survey is negative for malignancy. (7) Morbid obesity with BMI of 40.0-44.9, adult Is this a current diagnosis for this admission?: Yes Plan: The patient's BMI is 41.1. He should consider expanding his rehab from his stroke to a full exercise program when he is able. He must also utilize dietary discretion. - Time Time Spent with patient: 25-34 minutes Medications reviewed and adjusted accordingly: Yes Anticipated discharge: SNF
[2019-01-22] MEDS: BUMETANIDE INJ/PF 1 MG/4 ML SDV IV SCH (08:56)
[2019-01-22] MEDS: DOCUSATE SODIUM 100 MG CAPSULE PO SCH ×2 (09:02→17:10)
[2019-01-22] MEDS: APIXABAN 5 MG TABLET PO SCH ×2 (09:02→17:10)
[2019-01-22] MEDS: ASPIRIN 81 MG TABLET, ENT COATED PO SCH (09:02)
[2019-01-22] MEDS: CARVEDILOL 12.5 MG TABLET PO SCH ×2 (09:02→21:15)
[2019-01-22] MEDS: POTASSIUM CHLORIDE 10 MEQ CAPSULE.ER PO SCH (09:03)
[2019-01-22] MEDS: AMLODIPINE BESYLATE 10 MG TABLET PO SCH (09:03)
[2019-01-22] MEDS: FAMOTIDINE 20 MG TABLET PO SCH ×2 (09:03→21:16)
--- NOTE | 2019-01-22 09:36 | PDOC PROGRESS REPORT ---
Subjective Progress Note for:: 01/22/19 Subjective:: I saw the patient sitting on the bed comfortably, smiling and not verbalizing any complaints at all. is not currently at bedside. Patient seems to answer questions a little bit promptly. Reason For Visit: HYPERCALCEMIA Physical Exam Vital Signs: Temp Pulse Resp BP Pulse Ox 97.8 F 62 17 151/84 H 100 01/22/19 07:52 01/22/19 07:52 01/22/19 07:52 01/22/19 07:52 01/22/19 07:52 Intake & Output 01/21/19 01/22/19 01/23/19 06:59 06:59 06:59 Intake Total 4518 5410 978 Output Total 2825 1975 Balance 1693 3435 978 Weight 126.2 kg 122 kg Exam: General appearance: PRESENT: no acute distress, cooperative, well-developed, well-nourished Head exam: PRESENT: atraumatic, normocephalic Eye exam: PRESENT: conjunctiva pink, PERRLA. ABSENT: scleral icterus Neck exam: ABSENT: JVD Respiratory exam: PRESENT: Normal breath sounds. ABSENT: crackles, rales, rhonchi, unlabored, wheezes Cardiovascular exam: PRESENT: Regular rate rhythm -+S1, +S2. ABSENT: diastolic murmur, systolic murmur GI/Abdominal exam: PRESENT: normal bowel sounds, soft. ABSENT: guarding, mass, tenderness Extremities exam: ABSENT: No edema Neurological exam: PRESENT: alert, awake, oriented to person, place but not to time. Skin exam: PRESENT: dry, warm, Cardiovascular exam: PRESENT: +S1, +S2 GI/Abdominal exam: PRESENT: normal bowel sounds, soft. ABSENT: organomegaly, tenderness Results Laboratory Results: 01/17/19 04:45 01/22/19 05:30 01/22/19 05:30 Sodium 146.5 H Potassium 3.5 L Chloride 118 H Carbon Dioxide 21 L Anion Gap 8 BUN 13 Creatinine 2.06 H Est GFR ( Amer) 40 L Glucose 118 H Calcium 10.0 Magnesium 1.7 01/13/19 01/13/19 01/14/19 22:15 22:15 02:20 Creatine Kinase 81 Troponin I 0.021 0.019 Impressions: Chest X-Ray 01/13/19 22:15 IMPRESSION: Negative chest copyright 2011 [employer]- All Rights Reserved Renal Ultrasound 01/15/19 00:00 IMPRESSION: Both kidneys demonstrate increased echogenicity consistent with medical renal disease. Left renal cyst. Thyroid Ultrasound 01/15/19 00:00 IMPRESSION: NORMAL THYROID ULTRASOUND. Skeletal Survey 01/16/19 00:00 IMPRESSION: NO WORRISOME BONE LESIONS. Head MRI 01/17/19 00:00 IMPRESSION: Multiple acute nonhemorrhagic infarcts in multiple vascular distributions. Embolic infarcts favored over watershed ischemia. EVIDENCE OF ACUTE STROKE: Yes findings called to the attending physician, 1155 hours 01/17/2019. Assessment & Plan - Diagnosis (1) Acute kidney injury Is this a current diagnosis for this admission?: Yes Plan: Patient came in with acute kidney injury secondary to prerenal azotemia due to severe dehydration. It was improving until last Monday when he had an episode of hypotension for most of the day. So his kidney function has worsened yesterday to have a creatinine of 4.69. He has been making an adequate amount of urine output. His kidney function also continues to improve with creatinine of 1.88 yesterday with a slight increase to 2.06 today. I do not think this is significant change in his kidney function. We will continue to monitor kidney function. The patient does not need any renal placement therapy today. Baseline kidney function is unknown at this point. Patient's denies any known kidney problems although she mentioned that she he had kidney stones in the past. Kidney ultrasound done showed increased echogenicity, normal size kidneys without any solid or suspicious masses and a left renal cyst. Continue current management and IV fluids at 150 mL an hour. (2) Hypercalcemia Is this a current diagnosis for this admission?: Yes Plan: Etiology still uncertain at this point. He has mildly elevated PTH, low phosphorus, vitamin D level is normal, PTH-rP is negative, ultrasound showing no evidence of parathyroid nodules. Skeletal bone survey was also negative for any bone lesions. A 24-hour urine calcium is pending. Current calcium level is within normal limits with IV fluid hydration and low-dose diuretics. During his admission he was given Zolendronic acid and calcitonin. Serum protein electrophoresis is pending. I think it may be worthwhile to do a parathyroid sestamibi scan even though her thyroid ultrasound is negative for any parathyroid abnormality. Kristina Cedillo just ordered the parathyroid scan today. (3) Acute ischemic multifocal multiple vascular territories stroke Is this a current diagnosis for this admission?: Yes Plan: On MRI the patient has new bilateral cerebellar infarcts and right occipital infarct compared to previous imaging study in November. Patient was started on Eliquis by hospitalist service. ELIA was arranged and ordered to be done at [facility] today but unfortunately it was canceled for what ever reason. Patient continues to have waxing and waning mental status. (4) Acute metabolic encephalopathy Is this a current diagnosis for this admission?: Yes Plan: This could likely be secondary to hypercalcemia as well as the acute brain infarcts. Mental status continues to be labile. (5) HTN (hypertension) Qualifiers: Hypertension type: essential hypertension Qualified Code(s): I10 - Essential (primary) hypertension Is this a current diagnosis for this admission?: Yes Plan: Currently within acceptable limits. (6) Diabetes mellitus type 2 in obese Is this a current diagnosis for this admission?: Yes Plan: Well-controlled. - Time Time with patient: 15-25 minutes
[2019-01-22 14:37] LABS: A/G RATIO 0.9 (0.7-1.7); ALBUMIN 2 3.6 g/dL (2.9-4.4); ALPHA-2-GLOBULIN 2 1.2 g/dL (0.4-1.0); BETA GLOBULINS 1.2 g/dL (0.7-1.3); GAMMA GLOBULIN 1.3 g/dL (0.4-1.8); GLOBULIN TOTAL 3.9 g/dL (2.2-3.9); MONOCLONAL SPIKE Not Observed g/dL (Not Observ); PROTEIN TOTAL SERUM 7.5 g/dL (6.0-8.5)
--- NOTE | 2019-01-22 15:09 | RADIOLOGY REPORT (SQ) ---
EXAM DESCRIPTION: NM PARATHYROID IMAGING COMPLETED DATE/TIME: 01/22/2019 1:51 pm REASON FOR STUDY: hypercalcemia COMPARISON: None. RADIONUCLIDE AND DOSE: 22 millicuries Tc-99m Sestamibi. The route of agent administration: Intravenous ADDITIONAL DRUGS AND DOSES: None. TECHNIQUE: Early and delayed images of the neck acquired following radionuclide administration. LIMITATIONS: None. FINDINGS: On the immediate post sestamibi images, there is normal activity in the thyroid, submandib ular glands and parotid glands. A focus of abnormal increased uptake is seen in the anterior mediast inum about 7 to 10 cm inferior to the thyroid gland. On the delayed images, there is persistent ectopic activity in the anterior mediastinum about the 7 t o 10 cm inferior to the thyroid gland. This is worrisome for possible parathyroid adenoma. IMPRESSION: PERSISTENT ECTOPIC SESTAMIBI ACTIVITY IN THE MEDIASTINUM ABOUT 7 TO 10 CM INFERIOR TO TH E THYROID GLAND. FINDINGS ARE WORRISOME FOR PARATHYROID ADENOMA TECHNICAL DOCUMENTATION: JOB ID: [id number] [employer]- All Rights Reserved Reading location - IP/workstation name: [email or web address]
[2019-01-22] MEDS: HYDRALAZINE HCL INJ/PF 20 MG/1 ML SDV IV PRN (16:12)
[2019-01-22] MEDS: ATORVASTATIN CALCIUM 80 MG TABLET PO SCH (21:16)
[2019-01-23] MEDS: DIAZEPAM 5 MG TABLET PO SCH ×5 (00:19→23:36)
[2019-01-23] MEDS: NORMAL SALINE 1000 ML 1,000 ML IV PRN ×2 (02:14→08:55)
[2019-01-23] MEDS: INSULIN REG, HUMAN 100 UNIT/ML 3 ML VIAL (PYX) SUBCUT SCH ×4 (07:37→22:04)
[2019-01-23] MEDS: BUMETANIDE INJ/PF 1 MG/4 ML SDV IV SCH (08:54)
[2019-01-23] MEDS: CARVEDILOL 12.5 MG TABLET PO SCH ×2 (08:59→22:06)
[2019-01-23] MEDS: DOCUSATE SODIUM 100 MG CAPSULE PO SCH ×2 (08:59→18:17)
[2019-01-23] MEDS: ASPIRIN 81 MG TABLET, ENT COATED PO SCH (09:01)
[2019-01-23] MEDS: APIXABAN 5 MG TABLET PO SCH ×2 (09:01→18:17)
[2019-01-23] MEDS: POTASSIUM CHLORIDE 10 MEQ CAPSULE.ER PO SCH (09:02)
[2019-01-23] MEDS: AMLODIPINE BESYLATE 10 MG TABLET PO SCH (09:02)
[2019-01-23] MEDS: FAMOTIDINE 20 MG TABLET PO SCH ×2 (09:02→22:06)
--- NOTE | 2019-01-23 09:10 | PDOC PROGRESS REPORT ---
Subjective Progress Note for:: 01/23/19 Subjective:: 58 year old male who presented to the emergency room after finally retrieving a voice message his age from Dr. Bowie from Monday telling him that his serum calcium was too high (12.8) and he needed to come to the emergency room for treatment. He admits a history of hypercalcemia in the past. He denies associated or accompanying symptoms. He has not identified any aggravating or ameliorating factors for his hypercalcemia. In the emergency room he was found to have a calcium of 14.0 with a creatinine of 3.18 and a BUN of 70 both of which were increased over his values obtained 2 days ago showing a BUN of 21 and a creatinine of 1.29. Patient was subsequently admitted to the hospital for further evaluation and treatment. 01/22/[id number]-gykk-old male admitted with hypercalcemia nephrology on board. Calcium level is 10 today all the work-up for hypercalcemia is negative so far. Dr. Powers is recommending parathyroid scan. We do not have that availability in this hospital. Patient is still on IV fluids at 150 cc/h creatinine went back up to 2.06 today. Comfortably sitting on the edge of the bed eating his breakfast. Not in distress. No complaints no concerns expressed by the patient. 01/23/2019-no acute events in the last 24 hours. Patient is afebrile. Physical therapy is working with the patient. Parathyroid scan was done for hypercalcemi a found to have a parathyroid adenoma. Today's labs are pending. Reason For Visit: HYPERCALCEMIA Physical Exam Vital Signs: Temp Pulse Resp BP Pulse Ox 97.9 F 79 16 150/84 H 100 01/23/19 07:33 01/23/19 07:33 01/23/19 07:33 01/23/19 07:33 01/23/19 07:33 Intake & Output 01/22/19 01/23/19 01/24/19 06:59 06:59 06:59 Intake Total 5410 4476 1000 Output Total 1975 700 Balance 3435 3776 1000 Weight 122 kg 123.4 kg General appearance: PRESENT: no acute distress, cooperative, obese Head exam: PRESENT: atraumatic Eye exam: PRESENT: PERRLA Mouth exam: PRESENT: moist, tongue midline Teeth exam: PRESENT: poor dentation Neck exam: ABSENT: carotid bruit, JVD, lymphadenopathy, thyromegaly Respiratory exam: PRESENT: decreased breath sounds Cardiovascular exam: PRESENT: RRR. ABSENT: diastolic murmur, rubs, systolic murmur GI/Abdominal exam: PRESENT: normal bowel sounds, soft. ABSENT: distended, guarding, mass, organolmegaly, rebound, tenderness Rectal exam: PRESENT: deferred Extremities exam: PRESENT: full ROM. ABSENT: calf tenderness, clubbing, pedal edema Neurological exam: PRESENT: alert, awake, oriented to person, oriented to place, oriented to time Psychiatric exam: PRESENT: appropriate affect, normal mood. ABSENT: homicidal i deation, suicidal ideation Skin exam: PRESENT: dry, intact, warm. ABSENT: cyanosis, rash Results Laboratory Results: 01/17/19 04:45 01/22/19 05:30 01/18/19 05:52 Total Protein 7.5 Albumin 3.6 01/13/19 01/13/19 01/14/19 22:15 22:15 02:20 Creatine Kinase 81 Troponin I 0.021 0.019 Impressions: Chest X-Ray 01/13/19 22:15 IMPRESSION: Negative chest copyright 2011 [employer]- All Rights Reserved Renal Ultrasound 01/15/19 00:00 IMPRESSION: Both kidneys demonstrate increased echogenicity consistent with medical renal disease. Left renal cyst. Thyroid Ultrasound 01/15/19 00:00 IMPRESSION: NORMAL THYROID ULTRASOUND. Skeletal Survey 01/16/19 00:00 IMPRESSION: NO WORRISOME BONE LESIONS. Head MRI 01/17/19 00:00 IMPRESSION: Multiple acute nonhemorrhagic infarcts in multiple vascular distributions. Embolic infarcts favored over watershed ischemia. EVIDENCE OF ACUTE STROKE: Yes findings called to the attending physician, 1155 hours 01/17/2019. Parathyroid Scan Nuclear Medicine 01/22/19 00:00 IMPRESSION: PERSISTENT ECTOPIC SESTAMIBI ACTIVITY IN THE MEDIASTINUM ABOUT 7 TO 10 CM INFERIOR TO THE THYROID GLAND. FINDINGS ARE WORRISOME FOR PARATHYROID ADENOMA Assessment and Plan - Diagnosis (1) Acute ischemic multifocal multiple vascular territories stroke Is this a current diagnosis for this admission?: Yes Plan: The patient has multiple infarcts in multiple areas. The majority seem to be in the cerebellum. He was sent out for a transesophageal echocardiogram but his refused to consent. It is a test that he should have as an outpatient. In the meantime he will stay on apixaban and aspirin daily. He will need at least physical therapy and Occupational Therapy as well as possible speech therapy at discharge. I explained to him that he needs to be compliant or he will not get better. 01/22/2019-pt has h/o multiple strokes and on aphixaban and aspirin.. refused ELIA. plan is to discharge him to [facility] once is stable. 01/23/[id number]-kaga-old male with history of multiple strokes presently on apixaban and aspirin. As per the family request trans-esophageal echocardiogram test is canceled. Patient is working with the physical therapy. Plan at this moment is to discharge him to [facility] facility once is stable. (2) Acute kidney injury Is this a current diagnosis for this admission?: Yes Plan: The patient's serum creatinine is down to 1.88. This is from a max of greater than 4 during his hospitalization. Continue current regimen including monitoring intake and output. Please also see nephrology note. 01/22/2019-patient serum creatinine is 2.08 he is on normal saline at 150 cc/h creatinine worsened from 1.88-2.08 today. At the time of admission serum creatinine is 4.0. STU most likely secondary to prerenal causes resolving. 01/23/2019-patient's latest serum creatinine is 2.08 he is receiving IV fluids normal saline at 150 cc/h for hypercalcemia found to have parathyroid adenoma. Today's labs are pending. Nephrology on board. (3) Acute metabolic encephalopathy Is this a current diagnosis for this admission?: Yes Plan: Most likely related to the multifocal infarcts. Marked improvement is noted. 01/22/2019-patient has history of multiple strokes present mental status is at baseline. 01/23/2019-patient admitted with acute metabolic encephalopathy ....mental status is at his baseline today. (4) Diabetes mellitus type 2 in obese Is this a current diagnosis for this admission?: Yes Plan: Patient will be continued on his current diabetic regiment and diabetic diet. Before meals and at bedtime Accu-Cheks will be performed with hyperglycemia being treated with sliding scale insulin and hypoglycemia being treated with the hypoglycemic protocol. 01/22/2019-patient blood sugar today is 118. Patient is on insulin sliding scale before meals and at bedtime plan is to continue the present management and dietary consult will be requested. Plan to check hemoglobin A1c. 01/23/2019-patient has history of type 2 diabetes mellitus latest blood sugar is 8 and hemoglobin A1c 6.7. Patient is presently on insulin sliding scale plan is to continue the present management. (5) HTN (hypertension) Qualifiers: Hypertension type: essential hypertension Qualified Code(s): I10 - Essential (primary) hypertension Is this a current diagnosis for this admission?: Yes Plan: Continue amlodipine, Coreg and Bumex. Try to keep the systolic pressure less than 140 and the diastolic pressure less than 90. 01/22/2019-patient blood pressure today is 153/93. He is receiving normal saline at 150 cc/h and he is also on Coreg, amlodipine and Bumex. Plan is to continue the present management. 01/23/2019-patient blood pressure today is 114/58 stable. Presently on IV fluids 150 cc/h and on Coreg, amlodipine and on Bumex. Plan is to continue the present management at this point. (6) Hypercalcemia Is this a current diagnosis for this admission?: Yes Plan: Patient will be treated with IV fluids utilizing normal saline, diuretics utilizing Bumex, calcitonin administered intravenously at 4 units per kilogram and due to severe acute renal failure biphosphonate's would not be used, however denosumab will be used if available. Patient will have metabolic profiles performed every 6 hours and will be reassessed for further therapy ongoing. 01/22/2019-latest serum calcium is 10.0 on IV fluids normal saline at 150 cc/h he is also on Bumex at this point. He received calcitonin at the time of admission in the ER. Is going for a parathyroid scan today. Thyroid ultrasound was normal PTH is slightly elevated, skeletal survey is negative for malignancy. 01/23/2019-serum calcium is persistently high all the work-up was negative except for parathyroid scan shows parathyroid adenoma. (7) Morbid obesity with BMI of 40.0-44.9, adult Is this a current diagnosis for this admission?: Yes Plan: The patient's BMI is 41.1. He should consider expanding his rehab from his stroke to a full exercise program when he is able. He must also utilize dietary discretion. - Time Time Spent with patient: 25-34 minutes Medications reviewed and adjusted accordingly: Yes Anticipated discharge: SNF
[2019-01-23 09:22] LABS: ABSOLUTE BASOPHILS # (AUTO) 0.1 10^3/uL (0.0-0.2); ABSOLUTE EOSINOPHILS # (AUTO) 0.4 10^3/uL (0.0-0.6); ABSOLUTE LYMPHOCYTES (AUTO) 1.7 10^3/uL (0.5-4.7); ABSOLUTE MONOCYTES (AUTO) 0.6 10^3/uL (0.1-1.4); ABSOLUTE NEUT (AUTO) 5.7 10^3/uL (1.7-8.2); BASOPHILS % (AUTO) 1.1 % (0-2); EOSINOPHILS % (AUTO) 4.6 % (0-6); HEMATOCRIT 39.7 % (37.9-51.0); LYMPHOCYTES % (AUTO) 19.7 % (13-45); MEAN CORPUSCULAR HEMOGLOBIN 29.5 pg (27.0-33.4); MEAN CORPUSCULAR HGB CONC 32.8 g/dL (32.0-36.0); MEAN CORPUSCULAR VOLUME 90 fl (80-97); PLATELET COUNT 275 10^3/uL (150-450); RED BLOOD COUNT 4.41 10^6/uL (4.35-5.55); RED CELL DISTRIBUTION WIDTH 13.6 % (11.5-14.0); SEGMENTED NEUTROPHILS % (AUTO) 67.6 % (42-78); TOTAL CELLS COUNTED % (AUTO) 100 %; WHITE BLOOD COUNT 8.4 10^3/uL (4.0-10.5)
[2019-01-23 09:41] LABS: ALBUMIN 4.2 g/dL (3.5-5.0); ALKALINE PHOSPHATASE 150 U/L (38-126); ANION GAP 12 (5-19); ASPARTATE AMINO TRANSFERASE 78 U/L (17-59); BILIRUBIN,DIRECT 0.3 mg/dL (0.0-0.4); BILIRUBIN,TOTAL 0.4 mg/dL (0.2-1.3); BLOOD UREA NITROGEN 12 mg/dL (7-20); CALCIUM 10.9 mg/dL (8.4-10.2); CARBON DIOXIDE 20 mmol/L (22-30); CHLORIDE 118 mmol/L (98-107); GLUCOSE 130 mg/dL (75-110); POTASSIUM 3.3 mmol/L (3.6-5.0); TOTAL PROTEIN 8.1 g/dL (6.3-8.2)
[2019-01-23 12:36] LABS: CALCIUM RANDOM URINE 1.2 mg/dL (Not Estab.); CREATININE URINE 54.7 mg/dL (Not Estab.)
--- NOTE | 2019-01-23 15:56 | PDOC PROGRESS REPORT ---
Subjective Progress Note for:: 01/23/19 Subjective:: Patient is sleeping when I entered the room. He is arousable though. He does not have any new complaints and has been stable. Reason For Visit: HYPERCALCEMIA Physical Exam Vital Signs: Temp Pulse Resp BP Pulse Ox 97.9 F 79 16 150/84 H 100 01/23/19 07:33 01/23/19 07:33 01/23/19 07:33 01/23/19 07:33 01/23/19 07:33 Intake & Output 01/22/19 01/23/19 01/24/19 06:59 06:59 06:59 Intake Total 5410 4476 1000 Output Total 1975 700 Balance 3435 3776 1000 Weight 122 kg 123.4 kg Exam: General appearance: PRESENT: no acute distress, cooperative, well-developed, well-nourished Head exam: PRESENT: atraumatic, normocephalic Eye exam: PRESENT: conjunctiva pink, PERRLA. ABSENT: scleral icterus Neck exam: ABSENT: JVD Respiratory exam: PRESENT: Normal breath sounds. ABSENT: crackles, rales, rhonchi, unlabored, wheezes Cardiovascular exam: PRESENT: Regular rate rhythm -+S1, +S2. ABSENT: diastolic murmur, systolic murmur GI/Abdominal exam: PRESENT: normal bowel sounds, soft. ABSENT: guarding, mass, tenderness Extremities exam: ABSENT: No edema Neurological exam: PRESENT: alert, awake, oriented to person, place but not to time. Skin exam: PRESENT: dry, warm, Cardiovascular exam: PRESENT: +S1, +S2 GI/Abdominal exam: PRESENT: normal bowel sounds, soft. ABSENT: organomegaly, tenderness Results Laboratory Results: 01/23/19 09:01 01/23/19 09:01 01/18/19 01/23/19 01/23/19 05:52 09:01 09:01 WBC 8.4 RBC 4.41 Hgb 13.0 L Hct 39.7 MCV 90 MCH 29.5 MCHC 32.8 RDW 13.6 Plt Count 275 Seg Neutrophils % 67.6 Sodium 149.8 H Potassium 3.3 L Chloride 118 H Carbon Dioxide 20 L Anion Gap 12 BUN 12 Creatinine 2.15 H Est GFR ( Amer) 38 L Glucose 130 H Calcium 10.9 H Magnesium 1.8 Total Bilirubin 0.4 AST 78 H Alkaline Phosphatase 150 H Total Protein 7.5 8.1 Albumin 3.6 4.2 01/13/19 01/13/19 01/14/19 22:15 22:15 02:20 Creatine Kinase 81 Troponin I 0.021 0.019 Impressions: Chest X-Ray 01/13/19 22:15 IMPRESSION: Negative chest copyright 2010 [employer]- All Rights Reserved Renal Ultrasound 01/15/19 00:00 IMPRESSION: Both kidneys demonstrate increased echogenicity consistent with medical renal disease. Left renal cyst. Thyroid Ultrasound 01/15/19 00:00 IMPRESSION: NORMAL THYROID ULTRASOUND. Skeletal Survey 01/16/19 00:00 IMPRESSION: NO WORRISOME BONE LESIONS. Head MRI 01/17/19 00:00 IMPRESSION: Multiple acute nonhemorrhagic infarcts in multiple vascular distributions. Embolic infarcts favored over watershed ischemia. EVIDENCE OF ACUTE STROKE: Yes findings called to the attending physician, 1155 hours 01/17/2019. Parathyroid Scan Nuclear Medicine 01/22/19 00:00 IMPRESSION: PERSISTENT ECTOPIC SESTAMIBI ACTIVITY IN THE MEDIASTINUM ABOUT 7 TO 10 CM INFERIOR TO THE THYROID GLAND. FINDINGS ARE WORRISOME FOR PARATHYROID ADENOMA Assessment & Plan - Diagnosis (1) Acute kidney injury Is this a current diagnosis for this admission?: Yes Plan: Patient came in with acute kidney injury secondary to prerenal azotemia due to severe dehydration. It was improving until last Monday, a wek ago when he had an episode of hypotension for most of the day. So his kidney function has worsened with a creatinine of 4.69. He has been making an adequate amount of urine output. His kidney function also continues to improve although his creatinine is still slightly elevated at 2.15 compared to 2.06 from yesterday, EGFR of 38. We will continue to monitor kidney function. The patient does not need any renal placement therapy today. Patient might be very close to his baseline kidney function. Baseline kidney function is unknown at this point. Patient's denies any known kidney problems although she mentioned that she he had kidney stones in the past. Kidney ultrasound done showed increased echogenicity, normal size kidneys without any solid or suspicious masses and a left renal cyst. Due to developing hypernatremia I will change his IV fluids 0.45 normal saline with 20 meq of potassium at 150 mL an hour. (2) Hypercalcemia Is this a current diagnosis for this admission?: Yes Plan: Etiology still uncertain at this point. He has mildly elevated PTH, low phosphorus, vitamin D level is normal, PTH-rP is negative, ultrasound showing no evidence of parathyroid nodules. Skeletal bone survey was also negative for any bone lesions. A 24-hour urine calcium is pending. Current calcium level is within normal limits with IV fluid hydration and low-dose diuretics. During his admission he was given Zolendronic acid and calcitonin. Serum protein electrophoresis is negative for monoclonal spike. His parathyroid sestamibi scan showed worrisome findings for parathyroid adenoma. I think the finding of parathyroid adenoma is consistent with hypercalcemia, mildly elevated PTH and low phosphorus consistent with primary hyperparathyroidism. A definitive treatment for this because of the persistent hypercalcemia is parathyroidectomy once the patient is a stable. Discussed this with Dr. Acevedo. (3) Acute ischemic multifocal multiple vascular territories stroke Is this a current diagnosis for this admission?: Yes Plan: On MRI the patient has new bilateral cerebellar infarcts and right occipital infarct compared to previous imaging study in November. Patient was started on Eliquis by hospitalist service. ELIA was arranged and ordered to be done at [facility] today but unfortunately it was canceled for what ever reason. Patient continues to have waxing and waning mental status. (4) Hypernatremia Is this a current diagnosis for this admission?: Yes Plan: Mild. Change IV fluids to 0.45NSS at the same rate. (5) Acute metabolic encephalopathy Is this a current diagnosis for this admission?: Yes Plan: This could likely be secondary to hypercalcemia as well as the acute brain infarcts. Mental status continues to be labile. (6) HTN (hypertension) Qualifiers: Hypertension type: essential hypertension Qualified Code(s): I10 - E ssential (primary) hypertension Is this a current diagnosis for this admission?: Yes Plan: Currently within acceptable limits. (7) Diabetes mellitus type 2 in obese Is this a current diagnosis for this admission?: Yes Plan: Well-controlled. - Time Time with patient: 15-25 minutes
[2019-01-23] MEDS: POTASSI CL 20 MEQ/1/2NS 1L 20 MEQ/1,000 ML RTUINJ IV PRN (17:42)
[2019-01-23] MEDS: ATORVASTATIN CALCIUM 80 MG TABLET PO SCH (22:06)
[2019-01-24] MEDS: POTASSI CL 20 MEQ/1/2NS 1L 20 MEQ/1,000 ML RTUINJ IV PRN ×4 (00:26→21:42)
[2019-01-24 04:48] LABS: ABSOLUTE BASOPHILS # (AUTO) 0.1 10^3/uL (0.0-0.2); ABSOLUTE EOSINOPHILS # (AUTO) 0.4 10^3/uL (0.0-0.6); ABSOLUTE MONOCYTES (AUTO) 0.7 10^3/uL (0.1-1.4); ABSOLUTE NEUT (AUTO) 4.6 10^3/uL (1.7-8.2); BASOPHILS % (AUTO) 1.2 % (0-2); EOSINOPHILS % (AUTO) 5.2 % (0-6); HEMATOCRIT 35.3 % (37.9-51.0); HEMOGLOBIN 11.9 g/dL (13.5-17.0); LYMPHOCYTES % (AUTO) 25.5 % (13-45); MEAN CORPUSCULAR HGB CONC 33.6 g/dL (32.0-36.0); MEAN CORPUSCULAR VOLUME 89 fl (80-97); MONOCYTES % (AUTO) 8.8 % (3-13); PLATELET COUNT 245 10^3/uL (150-450); RED BLOOD COUNT 3.95 10^6/uL (4.35-5.55); RED CELL DISTRIBUTION WIDTH 13.7 % (11.5-14.0); SEGMENTED NEUTROPHILS % (AUTO) 59.3 % (42-78); TOTAL CELLS COUNTED % (AUTO) 100 %; WHITE BLOOD COUNT 7.8 10^3/uL (4.0-10.5)
[2019-01-24 05:06] LABS: ALBUMIN 3.2 g/dL (3.5-5.0); ALKALINE PHOSPHATASE 133 U/L (38-126); ANION GAP 8 (5-19); ASPARTATE AMINO TRANSFERASE 60 U/L (17-59); BILIRUBIN,DIRECT 0.4 mg/dL (0.0-0.4); BILIRUBIN,TOTAL 0.5 mg/dL (0.2-1.3); BLOOD UREA NITROGEN 13 mg/dL (7-20); CARBON DIOXIDE 20 mmol/L (22-30); CHLORIDE 117 mmol/L (98-107); GLUCOSE 112 mg/dL (75-110); POTASSIUM 3.4 mmol/L (3.6-5.0); TOTAL PROTEIN 6.6 g/dL (6.3-8.2)
[2019-01-24] MEDS: DIAZEPAM 5 MG TABLET PO SCH ×4 (05:41→17:32)
--- NOTE | 2019-01-24 09:02 | PDOC PROGRESS REPORT ---
Subjective Progress Note for:: 01/24/19 Subjective:: 58 year old male who presented to the emergency room after finally retrieving a voice message his age from Dr. Bowie from Monday telling him that his serum calcium was too high (12.8) and he needed to come to the emergency room for treatment. He admits a history of hypercalcemia in the past. He denies associated or accompanying symptoms. He has not identified any aggravating or ameliorating factors for his hypercalcemia. In the emergency room he was found to have a calcium of 14.0 with a creatinine of 3.18 and a BUN of 70 both of which were increased over his values obtained 2 days ago showing a BUN of 21 and a creatinine of 1.29. Patient was subsequently admitted to the hospital for further evaluation and treatment. 01/[id number]-sbsk-old male admitted with hypercalcemia nephrology on board. Calcium level is 10 today all the work-up for hypercalcemia is negative so far. Dr. Powers is recommending parathyroid scan. We do not have that availability in this hospital. Patient is still on IV fluids at 150 cc/h creatinine went back up to 2.06 today. Comfortably sitting on the edge of the bed eating his breakfast. Not in distress. No complaints no concerns expressed by the patient. 01/23/2019-no acute events in the last 24 hours. Patient is afebrile. Physical therapy is working with the patient. Parathyroid scan was done for hypercalcemi a found to have a parathyroid adenoma. Today's labs are pending. 01/24/2019- 01/24/2019-no acute events in the last 24 hours. Afebrile. IV fluids are switched to half-normal saline with 20 mg of potassium at 150 cc/h. Creatinine is continued to trending up. it Is 2.2 today. Nephrology on board. Plan is to hold Bumex for today. Reason For Visit: HYPERCALCEMIA Physical Exam Vital Signs: Temp Pulse Resp BP Pulse Ox 97.9 F 73 20 134/77 H 94 01/24/19 03:22 01/24/19 07:00 01/24/19 03:22 01/24/19 03:22 01/24/19 03:22 Intake & Output 01/23/19 01/24/19 01/25/19 06:59 06:59 06:59 Intake Total 4476 3940 1000 Output Total 700 125 Balance 3778 3813 1000 Weight 123.4 kg 122.6 kg General appearance: PRESENT: no acute distress, cooperative Head exam: PRESENT: atraumatic Eye exam: PRESENT: PERRLA Mouth exam: PRESENT: moist, tongue midline Teeth exam: PRESENT: poor dentation Neck exam: ABSENT: carotid bruit, JVD, lymphadenopathy, thyromegaly Respiratory exam: PRESENT: decreased breath sounds Cardiovascular exam: PRESENT: RRR. ABSENT: diastolic murmur, rubs, systolic murmur GI/Abdominal exam: PRESENT: normal bowel sounds, soft. ABSENT: distended, guarding, mass, organolmegaly, rebound, tenderness Rectal exam: PRESENT: deferred Extremities exam: PRESENT: full ROM. ABSENT: calf tenderness, clubbing, pedal edema Neurological exam: PRESENT: alert, awake, oriented to person, oriented to place, oriented to time, oriented to situation, CN II-XII grossly intact. ABSENT: motor sensory deficit Psychiatric exam: PRESENT: appropriate affect, normal mood. ABSENT: homicidal ideation, suicidal ideation Results Laboratory Results: 01/24/19 04:26 01/24/19 04:26 01/19/19 01/23/19 01/23/19 11:45 09:01 09:01 WBC 8.4 RBC 4.41 Hgb 13.0 L Hct 39.7 MCV 90 MCH 29.5 MCHC 32.8 RDW 13.6 Plt Count 275 Seg Neutrophils % 67.6 Sodium 149.8 H Potassium 3.3 L Chloride 118 H Carbon Dioxide 20 L Anion Gap 12 BUN 12 Creatinine 2.15 H Est GFR ( Amer) 38 L Glucose 130 H Calcium 10.9 H Magnesium 1.8 Total Bilirubin 0.4 AST 78 H Alkaline Phosphatase 150 H Total Protein 8.1 Albumin 4.2 Ur Calcium 24 Hr 35.0 L 01/24/19 01/24/19 04:26 04:26 WBC 7.8 RBC 3.95 L Hgb 11.9 L Hct 35.3 L MCV 89 MCH 30.0 MCHC 33.6 RDW 13.7 Plt Count 245 Seg Neutrophils % 59.3 Sodium 144.7 Potassium 3.4 L Chloride 117 H Carbon Dioxide 20 L Anion Gap 8 BUN 13 Creatinine 2.21 H Est GFR ( Amer) 37 L Glucose 112 H Calcium 10.0 Magnesium 1.7 Total Bilirubin 0.5 AST 60 H Alkaline Phosphatase 133 H Total Protein 6.6 Albumin 3.2 L Ur Calcium 24 Hr 01/13/19 01/13/19 01/14/19 22:15 22:15 02:20 Creatine Kinase 81 Troponin I 0.021 0.019 Impressions: Chest X-Ray 01/13/19 22:15 IMPRESSION: Negative chest copyright 2010 [employer]- All Rights Reserved Renal Ultrasound 01/15/19 00:00 IMPRESSION: Both kidneys demonstrate increased echogenicity consistent with medical renal disease. Left renal cyst. Thyroid Ultrasound 01/15/19 00:00 IMPRESSION: NORMAL THYROID ULTRASOUND. Skeletal Survey 01/16/19 00:00 IMPRESSION: NO WORRISOME BONE LESIONS. Head MRI 01/17/19 00:00 IMPRESSION: Multiple acute nonhemorrhagic infarcts in multiple vascular distributions. Embolic infarcts favored over watershed ischemia. EVIDENCE OF ACUTE STROKE: Yes findings called to the attending physician, 1155 hours 01/17/2019. Parathyroid Scan Nuclear Medicine 01/22/19 00:00 IMPRESSION: PERSISTENT ECTOPIC SESTAMIBI ACTIVITY IN THE MEDIASTINUM ABOUT 7 TO 10 CM INFERIOR TO THE THYROID GLAND. FINDINGS ARE WORRISOME FOR PARATHYROID ADENOMA Assessment and Plan - Diagnosis (1) Acute ischemic multifocal multiple vascular territories stroke Is this a current diagnosis for this admission?: Yes Plan: The patient has multiple infarcts in multiple areas. The majority seem to be in the cerebellum. He was sent out for a transesophageal echocardiogram but his refused to consent. It is a test that he should have as an outpatient. In the meantime he will stay on apixaban and aspirin daily. He will need at least physical therapy and Occupational Therapy as well as possible speech therapy at discharge. I explained to him that he needs to be compliant or he will not get better. 01/22/2019-pt has h/o multiple strokes and on aphixaban and aspirin.. refused ELIA. plan is to [facility] once is stable. 01/[id number]-[id number]-old male with history of multiple strokes presently on apixaban and aspirin. As per the family request trans-esophageal echocardiogram test is canceled. Patient is working with the physical therapy. Plan at this moment is to discharge him to long-term facility once is stable. 01/[id number]-cqzd-old male with history of multiple strokes on apixaban and aspirin. ELIA was canceled as per family request. No acute events. Patient is waiting for placement. (2) Acute kidney injury Is this a current diagnosis for this admission?: Yes Plan: The patient's serum creatinine is down to 1.88. This is from a max of greater than 4 during his hospitalization. Continue current regimen including monitoring intake and output. Please also see nephrology note. 01/22/2019-patient serum creatinine is 2.08 he is on normal saline at 150 cc/h creatinine worsened from 1.88-2.08 today. At the time of admission serum creatinine is 4.0. STU most likely secondary to prerenal causes resolving. 01/23/2019-patient's latest serum creatinine is 2.08 he is receiving IV fluids normal saline at 150 cc/h for hypercalcemia found to have parathyroid adenoma. Today's labs are pending. Nephrology on board. 01/24/2019-patient's latest creatinine is 2.2 he is receiving half normal saline with potassium supplementation at 150 cc/h. Nonoliguric. Plan is to hold Bumex for today. Continue to closely monitor his urinary output and kidney function. (3) Acute metabolic encephalopathy Is this a current diagnosis for this admission?: Yes Plan: Most likely related to the multifocal infarcts. Marked improvement is noted. 01/22/2019-patient has history of multiple strokes present mental status is at baseline. 01/23/2019-patient admitted with acute metabolic encephalopathy ....mental status is at his baseline today. 01/24/2019-patient was admitted with acute metabolic and colopathy Patient's mental status at baseline. Very cooperative. Pleasant gentleman. (4) Diabetes mellitus type 2 in obese Is this a current diagnosis for this admission?: Yes Plan: Patient will be continued on his current diabetic regiment and diabetic diet. Before meals and at bedtime Accu-Cheks will be performed with hyperglycemia being treated with sliding scale insulin and hypoglycemia being treated with the hypoglycemic protocol. 01/22/2019-patient blood sugar today is 118. Patient is on insulin sliding scale before meals and at bedtime plan is to continue the present management and dietary consult will be requested. Plan to check hemoglobin A1c. 01/23/2019-patient has history of type 2 diabetes mellitus latest blood sugar is 8 and hemoglobin A1c 6.7. Patient is presently on insulin sliding scale plan is to continue the present management. 01/24/2019-latest blood sugar is 133. Hemoglobin A1c 6.7. Plan is to continue with insulin sliding scale. (5) HTN (hypertension) Qualifiers: Hypertension type: essential hypertension Qualified Code(s): I10 - Essential (primary) hypertension Is this a current diagnosis for this admission?: Yes Plan: Continue amlodipine, Coreg and Bumex. Try to keep the systolic pressure less than 140 and the diastolic pressure less than 90. 01/22/2019-patient blood pressure today is 153/93. He is receiving normal saline at 150 cc/h and he is also on Coreg, amlodipine and Bumex. Plan is to continue the present management. 01/23/2019-patient blood pressure today is 114/58 stable. Presently on IV fluids 150 cc/h and on Coreg, amlodipine and on Bumex. Plan is to continue the present management at this point. 01/24/2019-latest blood pressure is 134/77. Presently on Bumex 1 mg IV in the mor leif, Coreg, amlodipine plan is to hold Bumex for today. (6) Hypercalcemia Is this a current diagnosis for this admission?: Yes Plan: Patient will be treated with IV fluids utilizing normal saline, diuretics utilizing Bumex, calcitonin administered intravenously at 4 units per kilogram and due to severe acute renal failure biphosphonate's would not be used, however denosumab will be used if available. Patient will have metabolic profiles performed every 6 hours and will be reassessed for further therapy ongoing. 01/22/2019-latest serum calcium is 10.0 on IV fluids normal saline at 150 cc/h he is also on Bumex at this point. He received calcitonin at the time of admission in the ER. Is going for a parathyroid scan today. Thyroid ultrasound was normal PTH is slightly elevated, skeletal survey is negative for malignancy. 01/23/2019-serum calcium is persistently high all the work-up was negative except for parathyroid scan shows parathyroid adenoma. 01/24/2019-serum calcium level today is 10.0. Parathyroid scan shows parathyroid adenoma. Patient may need a parathyroidectomy as an outpatient. (7) Morbid obesity with BMI of 40.0-44.9, adult Is this a current diagnosis for this admission?: Yes - Time Time Spent with patient: 25-34 minutes Medications reviewed and adjusted accordingly: Yes Anticipated discharge: SNF
[2019-01-24] MEDS: POTASSIUM CHLORIDE 10 MEQ CAPSULE.ER PO SCH (09:33)
[2019-01-24] MEDS: ASPIRIN 81 MG TABLET, ENT COATED PO SCH (09:34)
[2019-01-24] MEDS: FAMOTIDINE 20 MG TABLET PO SCH ×2 (09:34→21:41)
[2019-01-24] MEDS: APIXABAN 5 MG TABLET PO SCH ×2 (09:34→17:32)
[2019-01-24] MEDS: AMLODIPINE BESYLATE 10 MG TABLET PO SCH (09:34)
[2019-01-24] MEDS: DOCUSATE SODIUM 100 MG CAPSULE PO SCH ×2 (09:34→17:32)
[2019-01-24] MEDS: CARVEDILOL 12.5 MG TABLET PO SCH ×2 (09:34→21:42)
[2019-01-24] MEDS: INSULIN REG, HUMAN 100 UNIT/ML 3 ML VIAL (PYX) SUBCUT SCH ×4 (10:30→21:38)
[2019-01-24] MEDS: ATORVASTATIN CALCIUM 80 MG TABLET PO SCH (21:41)
[2019-01-25] MEDS: DIAZEPAM 5 MG TABLET PO SCH ×3 (00:10→12:58)
[2019-01-25 04:48] LABS: ABSOLUTE BASOPHILS # (AUTO) 0.1 10^3/uL (0.0-0.2); ABSOLUTE EOSINOPHILS # (AUTO) 0.4 10^3/uL (0.0-0.6); ABSOLUTE LYMPHOCYTES (AUTO) 1.6 10^3/uL (0.5-4.7); ABSOLUTE MONOCYTES (AUTO) 0.6 10^3/uL (0.1-1.4); ABSOLUTE NEUT (AUTO) 5.5 10^3/uL (1.7-8.2); BASOPHILS % (AUTO) 0.8 % (0-2); EOSINOPHILS % (AUTO) 5.5 % (0-6); HEMATOCRIT 37.2 % (37.9-51.0); HEMOGLOBIN 12.1 g/dL (13.5-17.0); LYMPHOCYTES % (AUTO) 19.4 % (13-45); MEAN CORPUSCULAR HEMOGLOBIN 29.1 pg (27.0-33.4); MEAN CORPUSCULAR HGB CONC 32.5 g/dL (32.0-36.0); MEAN CORPUSCULAR VOLUME 89 fl (80-97); PLATELET COUNT 261 10^3/uL (150-450); RED BLOOD COUNT 4.16 10^6/uL (4.35-5.55); RED CELL DISTRIBUTION WIDTH 13.6 % (11.5-14.0); SEGMENTED NEUTROPHILS % (AUTO) 67.3 % (42-78); TOTAL CELLS COUNTED % (AUTO) 100 %; WHITE BLOOD COUNT 8.1 10^3/uL (4.0-10.5)
[2019-01-25 05:00] LABS: ALBUMIN 3.6 g/dL (3.5-5.0); ALKALINE PHOSPHATASE 183 U/L (38-126); ANION GAP 9 (5-19); ASPARTATE AMINO TRANSFERASE 63 U/L (17-59); BILIRUBIN,DIRECT 0.2 mg/dL (0.0-0.4); BILIRUBIN,TOTAL 0.4 mg/dL (0.2-1.3); BLOOD UREA NITROGEN 12 mg/dL (7-20); CALCIUM 10.3 mg/dL (8.4-10.2); CARBON DIOXIDE 20 mmol/L (22-30); CHLORIDE 116 mmol/L (98-107); GLUCOSE 128 mg/dL (75-110); POTASSIUM 3.3 mmol/L (3.6-5.0); TOTAL PROTEIN 7.2 g/dL (6.3-8.2)
[2019-01-25] MEDS: POTASSI CL 20 MEQ/1/2NS 1L 20 MEQ/1,000 ML RTUINJ IV PRN ×3 (05:14→20:36)
--- NOTE | 2019-01-25 08:38 | PDOC PROGRESS REPORT ---
Subjective Progress Note for:: 01/25/19 Subjective:: 58 year old male who presented to the emergency room after finally retrieving a voice message his age from Dr. Bowie from Monday telling him that his serum calcium was too high (12.8) and he needed to come to the emergency room for treatment. He admits a history of hypercalcemia in the past. He denies associated or accompanying symptoms. He has not identified any aggravating or ameliorating factors for his hypercalcemia. In the emergency room he was found to have a calcium of 14.0 with a creatinine of 3.18 and a BUN of 70 both of which were increased over his values obtained 2 days ago showing a BUN of 21 and a creatinine of 1.29. Patient was subsequently admitted to the hospital for further evaluation and treatment. 01/22/[id number]-old male admitted with hypercalcemia nephrology on board. Calcium level is 10 today all the work-up for hypercalcemia is negative so far. Dr. Powers is recommending parathyroid scan. We do not have that availability in this hospital. Patient is still on IV fluids at 150 cc/h creatinine went back up to 2.06 today. Comfortably sitting on the edge of the bed eating his breakfast. Not in distress. No complaints no concerns expressed by the patient. 01/23/2019-no acute events in the last 24 hours. Patient is afebrile. Physical therapy is working with the patient. Parathyroid scan was done for hypercalcemi a found to have a parathyroid adenoma. Today's labs are pending. 01/24/2019-no acute events in the last 24 hours. Afebrile. IV fluids are switched to half-normal saline with 20 mg of potassium at 150 cc/h. Creatinine is continued to trending up. it Is 2.2 today. Nephrology on board. Plan is to hold Bumex for today. 01/25/2019-no acute events in the last 24 hours. Afebrile. Serum calcium is 10.3. Parathyroid scan was done it shows ectopic activity 7 to 10 cm below the thyroid gland in the mediastinum. He may need a surgery. Patient is expressing desire to go home but I spoke to his she does want to come him home , she want him to be in a rehab facility. I have to call [facility] on Monday to make arrangements for transfer of there for possible parathyroid adenoma removal. Reason For Visit: HYPERCALCEMIA Physical Exam Vital Signs: Temp Pulse Resp BP Pulse Ox 98.2 F 81 15 159/78 H 100 01/25/19 03:48 01/25/19 03:48 01/25/19 03:48 01/25/19 03:48 01/25/19 03:48 Intake & Output 01/24/19 01/25/19 01/26/19 06:59 06:59 06:59 Intake Total 3940 4880 Output Total 125 Balance 3815 4880 Weight 122.6 kg 120.9 kg General appearance: PRESENT: no acute distress, cooperative, morbidly obese Head exam: PRESENT: atraumatic Eye exam: PRESENT: PERRLA Ear exam: PRESENT: normal external ear exam Mouth exam: PRESENT: neck supple Teeth exam: PRESENT: poor dentation Neck exam: ABSENT: carotid bruit, JVD, lymphadenopathy, thyromegaly Respiratory exam: PRESENT: decreased breath sounds Cardiovascular exam: PRESENT: RRR. ABSENT: diastolic murmur, rubs, systolic murmur GI/Abdominal exam: PRESENT: normal bowel sounds, soft. ABSENT: distended, guarding, mass, organolmegaly, rebound, tenderness Rectal exam: PRESENT: deferred Extremities exam: PRESENT: full ROM. ABSENT: calf tenderness, clubbing, pedal edema Neurological exam: PRESENT: alert, awake, oriented to person, oriented to place, oriented to time, oriented to situation, CN II-XII grossly intact. ABSENT: motor sensory deficit Psychiatric exam: PRESENT: appropriate affect, normal mood. ABSENT: homicidal i deation, suicidal ideation Results Laboratory Results: 01/25/19 04:20 01/25/19 04:20 01/25/19 01/25/19 04:20 04:20 WBC 8.1 RBC 4.16 L Hgb 12.1 L Hct 37.2 L MCV 89 MCH 29.1 MCHC 32.5 RDW 13.6 Plt Count 261 Seg Neutrophils % 67.3 Sodium 145.4 H Potassium 3.3 L Chloride 116 H Carbon Dioxide 20 L Anion Gap 9 BUN 12 Creatinine 2.04 H Est GFR ( Amer) 41 L Glucose 128 H Calcium 10.3 H Magnesium 1.8 Total Bilirubin 0.4 AST 63 H Alkaline Phosphatase 183 H Total Protein 7.2 Albumin 3.6 01/13/19 01/13/1919 22:15 22:15 02:20 Creatine Kinase 81 Troponin I 0.021 0.019 Impressions: Chest X-Ray 01/13/19 22:15 IMPRESSION: Negative chest copyright 2010 [id number]- All Rights Reserved Renal Ultrasound 01/15/19 00:00 IMPRESSION: Both kidneys demonstrate increased echogenicity consistent with medical renal disease. Left renal cyst. Thyroid Ultrasound 01/15/19 00:00 IMPRESSION: NORMAL THYROID ULTRASOUND. Skeletal Survey 01/16/19 00:00 IMPRESSION: NO WORRISOME BONE LESIONS. Head MRI 01/17/19 00:00 IMPRESSION: Multiple acute nonhemorrhagic infarcts in multiple vascular distributions. Embolic infarcts favored over watershed ischemia. EVIDENCE OF ACUTE STROKE: Yes findings called to the attending physician, 1155 hours 01/17/2019. Parathyroid Scan Nuclear Medicine 01/22/19 00:00 IMPRESSION: PERSISTENT ECTOPIC SESTAMIBI ACTIVITY IN THE MEDIASTINUM ABOUT 7 TO 10 CM INFERIOR TO THE THYROID GLAND. FINDINGS ARE WORRISOME FOR PARATHYROID ADENOMA Assessment and Plan - Diagnosis (1) Acute ischemic multifocal multiple vascular territories stroke Is this a current diagnosis for this admission?: Yes Plan: The patient has multiple infarcts in multiple areas. The majority seem to be in the cerebellum. He was sent out for a transesophageal echocardiogram but his refused to consent. It is a test that he should have as an outpatient. In the meantime he will stay on apixaban and aspirin daily. He will need at least physical therapy and Occupational Therapy as well as possible speech therapy at discharge. I explained to him that he needs to be compliant or he will not get better. 01/22/2019-pt has h/o multiple strokes and on aphixaban and aspirin.. refused ELIA. plan is to discharge him to [facility] once is stable. 01/23/[id number]-rmza-old male with history of multiple strokes presently on apixaban and aspirin. As per the family request trans-esophageal echocardiogram test is canceled. Patient is working with the physical therapy. Plan at this moment is to discharge him to retirement facility once is stable. 01/24/[id number]-tqdv-old male with history of multiple strokes on apixaban and aspirin. ELIA was canceled as per family request. No acute events. Patient is waiting for placement. 01/25/2019-patient has history of multiple ischemic strokes physical therapy working with the patient patient is expressing desire to go home I spoke to his she says she is unable to take care of him at home she is requesting us to place him in a rehab facility. (2) Acute kidney injury Is this a current diagnosis for this admission?: Yes Plan: The patient's serum creatinine is down to 1.88. This is from a max of greater than 4 during his hospitalization. Continue current regimen including monitoring intake and output. Please also see nephrology note. 01/22/2019-patient serum creatinine is 2.08 he is on normal saline at 150 cc/h creatinine worsened from 1.88-2.08 today. At the time of admission serum creatinine is 4.0. STU most likely secondary to prerenal causes resolving. 01/23/2019-patient's latest serum creatinine is 2.08 he is receiving IV fluids normal saline at 150 cc/h for hypercalcemia found to have parathyroid adenoma. Today's labs are pending. Nephrology on board. 01/24/2019-patient's latest creatinine is 2.2 he is receiving half normal saline with potassium supplementation at 150 cc/h. Nonoliguric. Plan is to hold Bumex for today. Continue to closely monitor his urinary output and kidney function. 01/25/2019-serum creatinine today 2.04 slightly improved compared to yesterday. Bumex is discontinued yesterday. We are watching for the fluid overload. (3) Acute metabolic encephalopathy Is this a current diagnosis for this admission?: Yes Plan: Most likely related to the multifocal infarcts. Marked improvement is noted. 01/22/2019-patient has history of multiple strokes present mental status is at baseline. 01/23/2019-patient admitted with acute metabolic encephalopathy ....mental status is at his baseline today. 01/24/2019-patient was admitted with acute metabolic and colopathy Patient's mental status at baseline. Very cooperative. Pleasant gentleman. (4) Diabetes mellitus type 2 in obese Is this a current diagnosis for this admission?: Yes Plan: Patient will be continued on his current diabetic regiment and diabetic diet. Before meals and at bedtime Accu-Cheks will be performed with hyperglycemia being treated with sliding scale insulin and hypoglycemia being treated with the hypoglycemic protocol. 01/22/2019-patient blood sugar today is 118. Patient is on insulin sliding scale before meals and at bedtime plan is to continue the present management and dietary consult will be requested. Plan to check hemoglobin A1c. 01/23/2019-patient has history of type 2 diabetes mellitus latest blood sugar is 8 and hemoglobin A1c 6.7. Patient is presently on insulin sliding scale plan is to continue the present management. 01/24/2019-latest blood sugar is 133. Hemoglobin A1c 6.7. Plan is to continue with insulin sliding scale. 01/25/2019-patient's latest blood sugar is 128 well-controlled, hemoglobin A1c 6.7. Plan is to continue insulin sliding scale. (5) HTN (hypertension) Qualifiers: Hypertension type: essential hypertension Qualified Code(s): I10 - Essential (primary) hypertension Is this a current diagnosis for this admission?: Yes Plan: Continue amlodipine, Coreg and Bumex. Try to keep the systolic pressure less than 140 and the diastolic pressure less than 90. 01/22/2019-patient blood pressure today is 153/93. He is receiving normal saline at 150 cc/h and he is also on Coreg, amlodipine and Bumex. Plan is to continue the present management. 01/23/2019-patient blood pressure today is 114/58 stable. Presently on IV fluids 150 cc/h and on Coreg, amlodipine and on Bumex. Plan is to continue the present management at this point. 01/24/2019-latest blood pressure is 134/77. Presently on Bumex 1 mg IV in the morning, Coreg, amlodipine plan is to hold Bumex for today. 01/25/2019-patient blood pressure today is 159/78. Presently on Coreg and amlodipine is also receiving half normal saline at 150 cc/h for hypercalcemia plan is to continue the present management. (6) Hypercalcemia Is this a current diagnosis for this admission?: Yes Plan: Patient will be treated with IV fluids utilizing normal saline, diuretics utilizing Bumex, calcitonin administered intravenously at 4 units per kilogram and due to severe acute renal failure biphosphonate's would not be used, however denosumab will be used if available. Patient will have metabolic profiles performed every 6 hours and will be reassessed for further therapy ongoing. 01/22/2019-latest serum calcium is 10.0 on IV fluids normal saline at 150 cc/h he is also on Bumex at this point. He received calcitonin at the time of admission in the ER. Is going for a parathyroid scan today. Thyroid ultrasound was normal PTH is slightly elevated, skeletal survey is negative for malignancy. 01/23/2019-serum calcium is persistently high all the work-up was negative except for parathyroid scan shows parathyroid adenoma. 01/24/2019-serum calcium level today is 10.0. Parathyroid scan shows parathyroid adenoma. Patient may need a parathyroidectomy as an outpatient. 01/25/2019-serum calcium is 10.3 today parathyroid scan was done it shows ectopic activity 7 to 10 cm below the thyroid gland in the mediastinum patient probably need a surgery. I will try to call [facility] on Monday to make arrangements for transfer. (7) Morbid obesity with BMI of 40.0-44.9, adult Is this a current diagnosis for this admission?: Yes - Time Time Spent with patient: 25-34 minutes Medications reviewed and adjusted accordingly: Yes Anticipated discharge: SNF
[2019-01-25] MEDS: INSULIN REG, HUMAN 100 UNIT/ML 3 ML VIAL (PYX) SUBCUT SCH ×4 (09:32→21:15)
[2019-01-25] MEDS: HALOPERIDOL LACTATE INJ 5 MG/1 ML VIAL IV PRN ×3 (09:34→22:48)
[2019-01-25] MEDS: POTASSIUM CHLORIDE 10 MEQ CAPSULE.ER PO SCH ×2 (09:36→17:34)
[2019-01-25] MEDS: AMLODIPINE BESYLATE 10 MG TABLET PO SCH (09:36)
[2019-01-25] MEDS: ASPIRIN 81 MG TABLET, ENT COATED PO SCH (09:36)
[2019-01-25] MEDS: DOCUSATE SODIUM 100 MG CAPSULE PO SCH ×2 (09:37→17:37)
[2019-01-25] MEDS: CARVEDILOL 12.5 MG TABLET PO SCH ×2 (09:37→21:04)
[2019-01-25] MEDS: FAMOTIDINE 20 MG TABLET PO SCH ×2 (09:38→21:04)
[2019-01-25] MEDS: APIXABAN 5 MG TABLET PO SCH ×2 (09:38→17:37)
--- NOTE | 2019-01-25 15:43 | PDOC PROGRESS REPORT ---
Subjective Progress Note for:: 01/25/19 Subjective:: Patient remains clinically stable. He does not have any complaints. He continues to require IV fluids to maintain his calcium levels. Reason For Visit: HYPERCALCEMIA Physical Exam Vital Signs: Temp Pulse Resp BP Pulse Ox 98.3 F 92 16 149/65 H 100 01/25/19 12:37 01/25/19 14:00 01/25/19 12:37 01/25/19 12:37 01/25/19 12:37 Intake & Output 01/24/19 01/25/19 01/26/19 06:59 06:59 06:59 Intake Total 3940 4880 1078 Output Total 125 Balance 3815 4880 1078 Weight 122.6 kg 120.9 kg Exam: General appearance: PRESENT: no acute distress, cooperative, well-developed, well-nourished Head exam: PRESENT: atraumatic, normocephalic Eye exam: PRESENT: conjunctiva slightly pale, PERRLA. ABSENT: scleral icterus Neck exam: ABSENT: JVD Respiratory exam: PRESENT: Normal breath sounds. ABSENT: crackles, rales, rh onchi, unlabored, wheezes Cardiovascular exam: PRESENT: Regular rate rhythm -+S1, +S2. ABSENT: diastolic murmur, systolic murmur GI/Abdominal exam: PRESENT: normal bowel sounds, soft. ABSENT: guarding, mass, tenderness Extremities exam: ABSENT: No edema Neurological exam: PRESENT: alert, awake, oriented to person, place but not to time. Skin exam: PRESENT: dry, warm, Cardiovascular exam: PRESENT: +S1, +S2 GI/Abdominal exam: PRESENT: normal bowel sounds, soft. ABSENT: organomegaly, tenderness Results Laboratory Results: 01/25/19 04:20 01/25/19 04:20 01/25/19 01/25/19 04:20 04:20 WBC 8.1 RBC 4.16 L Hgb 12.1 L Hct 37.2 L MCV 89 MCH 29.1 MCHC 32.5 RDW 13.6 Plt Count 261 Seg Neutrophils % 67.3 Sodium 145.4 H Potassium 3.3 L Chloride 116 H Carbon Dioxide 20 L Anion Gap 9 BUN 12 Creatinine 2.04 H Est GFR ( Amer) 41 L Glucose 128 H Calcium 10.3 H Magnesium 1.8 Total Bilirubin 0.4 AST 63 H Alkaline Phosphatase 183 H Total Protein 7.2 Albumin 3.6 01/13/19 01/13/19 01/14/19 22:15 22:15 02:20 Creatine Kinase 81 Troponin I 0.021 0.019 Impressions: Chest X-Ray 01/13/19 22:15 IMPRESSION: Negative chest copyright 2010 [email or web address]- All Rights Reserved Renal Ultrasound 01/15/19 00:00 IMPRESSION: Both kidneys demonstrate increased echogenicity consistent with medical renal disease. Left renal cyst. Thyroid Ultrasound 01/15/19 00:00 IMPRESSION: NORMAL THYROID ULTRASOUND. Skeletal Survey 01/16/19 00:00 IMPRESSION: NO WORRISOME BONE LESIONS. Head MRI 01/17/19 00:00 IMPRESSION: Multiple acute nonhemorrhagic infarcts in multiple vascular distributions. Embolic infarcts favored over watershed ischemia. EVIDENCE OF ACUTE STROKE: Yes findings called to the attending physician, 1155 hours 01/17/2019. Parathyroid Scan Nuclear Medicine 01/22/19 00:00 IMPRESSION: PERSISTENT ECTOPIC SESTAMIBI ACTIVITY IN THE MEDIASTINUM ABOUT 7 TO 10 CM INFERIOR TO THE THYROID GLAND. FINDINGS ARE WORRISOME FOR PARATHYROID ADENOMA Assessment & Plan - Diagnosis (1) Acute kidney injury Is this a current diagnosis for this admission?: Yes Plan: Patient came in with acute kidney injury secondary to prerenal azotemia due to severe dehydration. It was improving until last Monday, a wek ago when he had an episode of hypotension for most of the day. So his kidney function has worsened with a creatinine of 4.69. He has been making an adequate amount of urine output. Patient's creatinine has been around 2's for the last few days. I think he is very close to his baseline kidney function. The patient does not need any renal placement therapy today. Baseline kidney function is unknown as we do not have previous records but it appears that he may be at his baseline at this point. If in fact this is his baseline kidney function then he most likely has chronic kidney disease stage III. Patient's denies any known kidney problems although she mentioned that she he had kidney stones in the past. Kidney ultrasound done showed increased echogenicity, normal size kidneys without any solid or suspicious masses and a left renal cyst. Continue current management. (2) Hypercalcemia Is this a current diagnosis for this admission?: Yes Plan: He has mildly elevated PTH, low phosphorus, vitamin D level is normal, PTH-rP is negative, ultrasound showing no evidence of parathyroid nodules. Skeletal bone survey was also negative for any bone lesions. A 24-hour urine calcium is shows 24-hour urine calcium of only 35 which is questionable to me given the magnitude of the patient's hypercalcemia. May not have collected a 24-hour urine correctly. Is mildly elevated and fluctuates despite IV fluid hydration. Bumex has been discontinued. During his admission he was given Zolendronic acid and calcitonin. Serum protein electrophoresis is negative for monoclonal spike. His parathyroid sestamibi scan showed worrisome findings for parathyroid adenoma. I think the finding of parathyroid adenoma is consistent with hypercalcemia, mildly elevated PTH and low phosphorus consistent with primary hyperparathyroidism. A definitive treatment for this because of the persistent hypercalcemia is parathyroidectomy once the patient is a stable. Discussed this with Dr. Acevedo who possibly may need to transfer the patient. Kristina Cedillo states that he will call [facility] on Monday for possible parathyroidectomy. (3) Acute ischemic multifocal multiple vascular territories stroke Is this a current diagnosis for this admission?: Yes Plan: On MRI the patient has new bilateral cerebellar infarcts and right occipital infarct compared to previous imaging study in November. Patient was started on Eliquis by hospitalist service. ELIA was arranged and ordered to be done at [facility] today but unfortunately it was canceled for what ever reason. Patient continues to have waxing and waning mental status. (4) Hypokalemia Is this a current diagnosis for this admission?: Yes Plan: Increase oral potassium to 40 mEq daily. (5) Hypernatremia Is this a current diagnosis for this admission?: Yes Plan: Borderline, continue IV fluids to 0.45NSS at the same rate. (6) Acute metabolic encephalopathy Is this a current diagnosis for this admission?: Yes Plan: This could likely be secondary to hypercalcemia as well as the acute brain infarcts. Mental status continues to be labile. (7) HTN (hypertension) Qualifiers: Hypertension type: essential hypertension Qualified Code(s): I10 - Essential (primary) hypertension Is this a current diagnosis for this admission?: Yes Plan: Currently within acceptable limits. (8) Diabetes mellitus type 2 in obese Is this a current diagnosis for this admission?: Yes Plan: Well-controlled. - Notes Notes: No further recommendation from nephrology standpoint at this time. Discussed with Dr, Mannava. I will sign off at this time. - Time Time with patient: 15-25 minutes
[2019-01-25] MEDS: HYDRALAZINE HCL INJ/PF 20 MG/1 ML SDV IV PRN (20:39)
[2019-01-25] MEDS: ATORVASTATIN CALCIUM 80 MG TABLET PO SCH (21:04)
[2019-01-26] MEDS: POTASSI CL 20 MEQ/1/2NS 1L 20 MEQ/1,000 ML RTUINJ IV PRN ×2 (02:57→09:41)
[2019-01-26] MEDS: HALOPERIDOL LACTATE INJ 5 MG/1 ML VIAL IV PRN (03:27)
[2019-01-26 05:50] LABS: ABSOLUTE BASOPHILS # (AUTO) 0.1 10^3/uL (0.0-0.2); ABSOLUTE EOSINOPHILS # (AUTO) 0.4 10^3/uL (0.0-0.6); ABSOLUTE LYMPHOCYTES (AUTO) 1.7 10^3/uL (0.5-4.7); ABSOLUTE MONOCYTES (AUTO) 0.7 10^3/uL (0.1-1.4); ABSOLUTE NEUT (AUTO) 5.2 10^3/uL (1.7-8.2); EOSINOPHILS % (AUTO) 4.7 % (0-6); HEMATOCRIT 36.6 % (37.9-51.0); LYMPHOCYTES % (AUTO) 21.4 % (13-45); MEAN CORPUSCULAR HEMOGLOBIN 29.1 pg (27.0-33.4); MEAN CORPUSCULAR HGB CONC 32.8 g/dL (32.0-36.0); MEAN CORPUSCULAR VOLUME 89 fl (80-97); MONOCYTES % (AUTO) 8.2 % (3-13); PLATELET COUNT 267 10^3/uL (150-450); RED BLOOD COUNT 4.11 10^6/uL (4.35-5.55); RED CELL DISTRIBUTION WIDTH 13.8 % (11.5-14.0); SEGMENTED NEUTROPHILS % (AUTO) 64.7 % (42-78); TOTAL CELLS COUNTED % (AUTO) 100 %; WHITE BLOOD COUNT 8.1 10^3/uL (4.0-10.5)
[2019-01-26 06:10] LABS: ALBUMIN 3.6 g/dL (3.5-5.0); ALKALINE PHOSPHATASE 215 U/L (38-126); ANION GAP 9 (5-19); ASPARTATE AMINO TRANSFERASE 57 U/L (17-59); BILIRUBIN,DIRECT 0.4 mg/dL (0.0-0.4); BILIRUBIN,TOTAL 0.6 mg/dL (0.2-1.3); BLOOD UREA NITROGEN 10 mg/dL (7-20); CALCIUM 10.9 mg/dL (8.4-10.2); CARBON DIOXIDE 21 mmol/L (22-30); CHLORIDE 117 mmol/L (98-107); GLUCOSE 121 mg/dL (75-110); POTASSIUM 3.5 mmol/L (3.6-5.0); TOTAL PROTEIN 7.1 g/dL (6.3-8.2)
[2019-01-26] MEDS: INSULIN REG, HUMAN 100 UNIT/ML 3 ML VIAL (PYX) SUBCUT SCH ×2 (08:17→10:59)
--- NOTE | 2019-01-26 09:19 | PDOC TRANSFER SUMMARY ---
General Admission Date/PCP: 01/13/19 23:53 ETHAN BOWIE MD Resuscitation Status: Full Code - Transfer Diagnosis (1) Hypercalcemia Is this a current diagnosis for this admission?: Yes Diagnosis Summary: Patient will be treated with IV fluids utilizing normal saline, diuretics utilizing Bumex, calcitonin administered intravenously at 4 units per kilogram and due to severe acute renal failure biphosphonate's would not be used, however denosumab will be used if available. Patient will have metabolic profiles performed every 6 hours and will be reassessed for further therapy ongoing. 01/22/2019-latest serum calcium is 10.0 on IV fluids normal saline at 150 cc/h he is also on Bumex at this point. He received calcitonin at the time of admission in the ER. Is going for a parathyroid scan today. Thyroid ultrasound was normal PTH is slightly elevated, skeletal survey is negative for malignancy. 01/23/2019-serum calcium is persistently high all the work-up was negative except for parathyroid scan shows parathyroid adenoma. 01/24/2019-serum calcium level today is 10.0. Parathyroid scan shows parathyroid adenoma. Patient may need a parathyroidectomy as an outpatient. 01/25/2019-serum calcium is 10.3 today parathyroid scan was done it shows ectopic activity 7 to 10 cm below the thyroid gland in the mediastinum patient probably need a surgery. I will try to call [facility] on Monday to make arrangements for transfer. (2) Acute ischemic multifocal multiple vascular territories stroke Is this a current diagnosis for this admission?: Yes Diagnosis Summary: The patient has multiple infarcts in multiple areas. The majority seem to be in the cerebellum. He was sent out for a transesophageal echocardiogram but his refused to consent. It is a test that he should have as an outpatient. In the meantime he will stay on apixaban and aspirin daily. He will need at least physical therapy and Occupational Therapy as well as possible speech therapy at discharge. I explained to him that he needs to be compliant or he will not get better. 01/22/2019-pt has h/o multiple strokes and on aphixaban and aspirin.. refused ELIA. plan is to discharge [facility] to [facility] once is stable. 01/23/[id number]-hbhn-old male with history of multiple strokes presently on apixaban and aspirin. As per the family request trans-esophageal echocardiogram test is canceled. Patient is working with the physical therapy. Plan at this moment is to discharge him to longterm facility once is stable. 01/24/[id number]-ghaa-old male with history of multiple strokes on apixaban and aspirin. ELIA was canceled as per family request. No acute events. Patient is waiting for placement. 01/25/2019-patient has history of multiple ischemic strokes physical therapy working with the patient patient is expressing desire to go home I spoke to his she says she is unable to take care of him at home she is requesting us to place him in a rehab facility. 01/26/2019-no acute events in the last 24 hours. Patient is on aspirin and a pixaban. No ELIA was done. Plan is to continue the present management. (3) Acute kidney injury Is this a current diagnosis for this admission?: Yes Diagnosis Summary: The patient's serum creatinine is down to 1.88. This is from a max of greater than 4 during his hospitalization. Continue current regimen including monitoring intake and output. Please also see nephrology note. 01/22/2019-patient serum creatinine is 2.08 he is on normal saline at 150 cc/h creatinine worsened from 1.88-2.08 today. At the time of admission serum creatinine is 4.0. STU most likely secondary to prerenal causes resolving. 01/23/2019-patient's latest serum creatinine is 2.08 he is receiving IV fluids normal saline at 150 cc/h for hypercalcemia found to have parathyroid adenoma. Today's labs are pending. Nephrology on board. 01/24/2019-patient's latest creatinine is 2.2 he is receiving half normal saline with potassium supplementation at 150 cc/h. Nonoliguric. Plan is to hold Bumex for today. Continue to closely monitor his urinary output and kidney function. 01/25/2019-serum creatinine today 2.04 slightly improved compared to yesterday. Bumex is discontinued yesterday. We are watching for the fluid overload. 01/26/2019-patient came in with TSU and latest creatinine is 1.87. Presently on half normal saline at 150 cc/h for hyperkalemia. At the time of admission creatinine is around 4. STU most likely secondary to prerenal causes resolving. (4) Acute metabolic encephalopathy Is this a current diagnosis for this admission?: Yes Diagnosis Summary: Most likely related to the multifocal infarcts. Marked improvement is noted. 01/22/2019-patient has history of multiple strokes present mental status is at baseline. 01/23/2019-patient admitted with acute metabolic encephalopathy ....mental status is at his baseline today. 01/24/2019-patient was admitted with acute metabolic and colopathy Patient's mental status at baseline. Very cooperative. Pleasant gentleman. (5) Diabetes mellitus type 2 in obese Is this a current diagnosis for this admission?: Yes Diagnosis Summary: Patient will be continued on his current diabetic regiment and diabetic diet. Before meals and at bedtime Accu-Cheks will be performed with hyperglycemia being treated with sliding scale insulin and hypoglycemia being treated with the hypoglycemic protocol. 01/22/2019-patient blood sugar today is 118. Patient is on insulin sliding scale before meals and at bedtime plan is to continue the present management and dietary consult will be requested. Plan to check hemoglobin A1c. 01/23/2019-patient has history of type 2 diabetes mellitus latest blood sugar is 8 and hemoglobin A1c 6.7. Patient is presently on insulin sliding scale plan is to continue the present management. 01/24/2019-latest blood sugar is 133. Hemoglobin A1c 6.7. Plan is to continue with insulin sliding scale. 01/25/2019-patient's latest blood sugar is 128 well-controlled, hemoglobin A1c 6.7. Plan is to continue insulin sliding scale. 01/26/19-patient's latest blood sugar is 90 today stable. His hemoglobin A1c 6.7. A dietary consult was provided during the hospital stay. Presently on insulin sliding scale plan is to continue the present management. (6) HTN (hypertension) Is this a current diagnosis for this admission?: Yes Diagnosis Summary: Continue amlodipine, Coreg and Bumex. Try to keep the systolic pressure less than 140 and the diastolic pressure less than 90. 01/22/2019-patient blood pressure today is 153/93. He is receiving normal saline at 150 cc/h and he is also on Coreg, amlodipine and Bumex. Plan is to continue the present management. 01/23/2019-patient blood pressure today is 114/58 stable. Presently on IV fluids 150 cc/h and on Coreg, amlodipine and on Bumex. Plan is to continue the present management at this point. 01/24/2019-latest blood pressure is 134/77. Presently on Bumex 1 mg IV in the morning, Coreg, amlodipine plan is to hold Bumex for today. 01/25/2019-patient blood pressure today is 159/78. Presently on Coreg and amlodipine is also receiving half normal saline at 150 cc/h for hypercalcemia plan is to continue the present management. 01/26/2019-patient blood pressure today is 142/83 stable. Present on half normal saline 150 cc/h and he is also receiving Coreg and amlodipine. (7) Morbid obesity with BMI of 40.0-44.9, adult Is this a current diagnosis for this admission?: Yes - Transfer Medications Home Medications: Amlodipine Besylate [Norvasc 10 mg Tablet] 10 mg PO DAILY 01/14/19 Aspirin [Ecotrin 81 mg EC Tablet] 81 mg PO DAILY 01/14/19 Atorvastatin Calcium [Lipitor 80 mg Tablet] 80 mg PO QHS 01/14/19 Carvedilol [Coreg 25 mg Tablet] 1 tab PO Q12 01/14/19 Clopidogrel Bisulfate [Plavix 75 mg Tablet] 75 mg PO DAILY 01/14/19 Lisinopril/Hydrochlorothiazide [Lisinopril-Hctz 20-25 mg Tab] 1 each PO DAILY 01/14/19 Transfer Medications: Current Medications Al Hydrox/Mg Hydrox/Simethicone (Maalox Plus Susp 30 Udcup) 30 ml PO Q6HP PRN PRN Reason: HEARTBURN Stop: 02/13/19 00:58 Amlodipine Besylate (Norvasc 10 Mg Tablet) 10 mg PO DAILY [facility]IL[facility] Stop: 02/13/19 17:59 Last Admin: 01/25/19 09:36 Dose: 10 mg Documented by: Apixaban (Eliquis 5 Mg Tablet) 5 mg PO BID [facility] Stop: 02/16/19 17:59 Last Admin: 01/25/19 17:37 Dose: 5 mg Documented by: Aspirin (Ecotrin 81 Mg Ec Tablet) 81 mg PO DAILY WILMER Stop: 02/13/19 17:59 Last Admin: 01/25/19 09:36 Dose: 81 mg Documented by: Atorvastatin Calcium (Lipitor 80 Mg Tablet) 80 mg PO QHS [facility] Stop: 02/13/19 21:59 Last Admin: 01/25/19 21:04 Dose: 80 mg Documented by: Carvedilol (Coreg 12.5 Mg Tablet) 25 mg PO Q12 [facility] Stop: 02/13/19 21:59 Last Admin: 01/25/19 21:04 Dose: 25 mg Documented by: Dextrose (Dextrose Inj 50% Syringe (25 Gm/50 Ml)) 12.5 gm IV PRN PRN; Protocol PRN Reason: FOR BG 50-69 IN ALERT PATIENT Stop: 02/13/19 01:11 Dextrose (Dextrose Inj 50% Syringe (25 Gm/50 Ml)) 25 gm IV PRN PRN; Protocol PRN Reason: PER PROTOCOL Stop: 02/13/19 01:11 Docusate Sodium (Colace 100 Mg Capsule) 100 mg PO BID WILMER Stop: 02/13/19 09:59 Last Admin: 01/25/19 17:37 Dose: 100 mg Documented by: Famotidine (Pepcid 20 Mg Tablet) 20 mg PO Q12 [facility] Stop: 02/15/19 21:59 Last Admin: 01/25/19 21:04 Dose: 20 mg Documented by: Glucagon (Glucagen Inj 1 Mg Vial) 1 mg IM PRN PRN; Protocol PRN Reason: Evaluate for BG < 70 Stop: 02/13/19 01:11 Glucose (Glutose 40% Gel 15 Gm Tube) 15 gm PO PRN PRN; Protocol PRN Reason: FOR BG 50-69 IN ALERT PATIENT Stop: 02/13/19 01:11 Glucose (Glutose 40% Gel 15 Gm Tube) 30 gm PO PRN PRN; Protocol PRN Reason: FOR BG < 50 IN ALERT PATIENT Stop: 02/13/19 01:11 Haloperidol Lactate (Haldol 5 Mg/Ml Inj 1 Ml Vial) 5 mg IV Q4HP PRN PRN Reason: AGITATION Stop: 02/13/19 14:58 Last Admin: 01/26/19 03:27 Dose: 5 mg Documented by: Hydralazine HCl (Apresoline Inj/Pf 20 Mg/1 Ml Sdv) 20 mg IV Q4HP PRN PRN Reason: Give For Sbp > 160 / Dbp > 100 Stop: 02/13/19 01:12 Last Admin: 01/25/19 20:39 Dose: 20 mg Documented by: Potassium Chloride/Sodium Chloride (1/2ns 1000 Ml/Kcl 20 Meq Premix Bag) 20 meq in 1,000 mls @ 150 mls/hr IV CONTINUOUS PRN PRN Reason: THIS MED IS NOT "PRN" Stop: 02/22/19 11:59 Last Admin: 01/26/19 02:57 Dose: 150 mls/hr, 150 mls/hr Documented by: Insulin Human Regular (Humulin R (Pyxis) Insulin 100 Unit/Ml 3ml) 0 - 15 unit SUBCUT ACHS [facility]; Protocol Stop: 02/13/19 07:59 Last Admin: 01/26/19 08:17 Dose: Not Given Documented by: Magnesium Hydroxide (Milk Of Magnesia 30 Ml Udcup) 30 ml PO HSP PRN PRN Reason: FOR CONSTIPATION Stop: 02/13/19 00:58 Potassium Chloride (Klor-Con 10 Meq Capsule Er) 40 meq PO DAILY [facility] Stop: 02/24/19 15:59 Last Admin: 01/25/19 17:34 Dose: 40 meq Documented by: Sodium Chloride (Saline Flush 2.5 Ml Monoject Prefil Syrin) 2.5 ml IV Q8 [facility] Stop: 02/13/19 05:59 Last Admin: 01/26/19 05:36 Dose: Not Given Documented by: - Allergies Allergies/Adverse Reactions: No Known Allergies Allergy (Unverified 01/13/19 22:38) Hospital Course Hospital Course: 58 year old male who presented to the emergency room after finally retrieving a voice message his age from Dr. Bowie from Monday telling him that his serum calcium was too high (12.8) and he needed to come to the emergency room for treatment. He admits a history of hypercalcemia in the past. He denies associated or accompanying symptoms. He has not identified any aggravating or ameliorating factors for his hypercalcemia. In the emergency room he was found to have a calcium of 14.0 with a creatinine of 3.18 and a BUN of 70 both of wh ich were increased over his values obtained 2 days ago showing a BUN of 21 and a creatinine of 1.29. Patient was subsequently admitted to the hospital for further evaluation and treatment. 01/22/[id number]-lqly-old male admitted with hypercalcemia nephrology on board. Calcium level is 10 today all the work-up for hypercalcemia is negative so far. Dr. Powers is recommending parathyroid scan. We do not have that availability in this hospital. Patient is still on IV fluids at 150 cc/h creatinine went back up to 2.06 today. Comfortably sitting on the edge of the bed eating his breakfast. Not in distress. No complaints no concerns expressed by the patient. 01/23/2019-no acute events in the last 24 hours. Patient is afebrile. Physical therapy is working with the patient. Parathyroid scan was done for hypercalcemia found to have a parathyroid adenoma. Today's labs are pending. 01/24/2019-no acute events in the last 24 hours. Afebrile. IV fluids are switch ed to half-normal saline with 20 mg of potassium at 150 cc/h. Creatinine is continued to trending up. it Is 2.2 today. Nephrology on board. Plan is to hold Bumex for today. 01/25/2019-no acute events in the last 24 hours. Afebrile. Serum calcium is 10.3. Parathyroid scan was done it shows ectopic activity 7 to 10 cm below the thyroid gland in the mediastinum. He may need a surgery. Patient is expressing desire to go home but I spoke to his she does want to come him home , she want him to be in a rehab facility. I have to call [facility] on Monday to make arrangements for transfer of there for possible parathyroid adenoma removal. 11/2018-Case was discussed with the hospitalist at [facility] because serum calcium is persistently high today it is 10.9. He is receiving IV fluids at 150 cc/h and calcium is continued to trending up. Patient was accepted to [facility] today he is going to medical floor upthere Physical Exam Vital Signs: Temp Pulse Resp BP Pulse Ox 98.1 F 98 15 142/83 H 99 01/26/19 03:46 01/26/19 07:00 01/26/19 03:46 01/26/19 03:46 01/26/19 03:46 Intake & Output 01/25/19 01/26/19 01/27/19 06:59 06:59 06:59 Intake Total 4880 3131 Balance 4880 3131 Weight 120.9 kg 121.5 kg General appearance: PRESENT: no acute distress, cooperative Head exam: PRESENT: atraumatic Eye exam: PRESENT: PERRLA Mouth exam: PRESENT: neck supple Teeth exam: PRESENT: poor dentation Neck exam: ABSENT: carotid bruit, JVD, lymphadenopathy, thyromegaly Respiratory exam: PRESENT: decreased breath sounds Cardiovascular exam: PRESENT: RRR. ABSENT: diastolic murmur, rubs, systolic murmur GI/Abdominal exam: PRESENT: normal bowel sounds, soft. ABSENT: distended, guarding, mass, organolmegaly, rebound, tenderness Rectal exam: PRESENT: deferred Neurological exam: PRESENT: alert, awake, oriented to person, oriented to place, oriented to time, oriented to situation, CN II-XII grossly intact. ABSENT: motor sensory deficit Results Laboratory Results: 01/26/19 05:11 01/26/19 05:11 01/26/19 01/26/19 05:11 05:11 WBC 8.1 RBC 4.11 L Hgb 12.0 L Hct 36.6 L MCV 89 MCH 29.1 MCHC 32.8 RDW 13.8 Plt Count 267 Seg Neutrophils % 64.7 Sodium 146.8 H Potassium 3.5 L Chloride 117 H Carbon Dioxide 21 L Anion Gap 9 BUN 10 Creatinine 1.87 H Est GFR ( Amer) 45 L Glucose 121 H Calcium 10.9 H Total Bilirubin 0.6 AST 57 Alkaline Phosphatase 215 H Total Protein 7.1 Albumin 3.6 01/13/19 01/13/19 01/14/19 22:15 22:15 02:20 Creatine Kinase 81 Troponin I 0.021 0.019 Impressions: Chest X-Ray 01/13/19 22:15 IMPRESSION: Negative chest copyright 2011 [employer]- All Rights Reserved Renal Ultrasound 01/15/19 00:00 IMPRESSION: Both kidneys demonstrate increased echogenicity consistent with medical renal disease. Left renal cyst. Thyroid Ultrasound 01/15/19 00:00 IMPRESSION: NORMAL THYROID ULTRASOUND. Skeletal Survey 01/16/19 00:00 IMPRESSION: NO WORRISOME BONE LESIONS. Head MRI 01/17/19 00:00 IMPRESSION: Multiple acute nonhemorrhagic infarcts in multiple vascular distributions. Embolic infarcts favored over watershed ischemia. EVIDENCE OF ACUTE STROKE: Yes findings called to the attending physician, 1155 hours 01/17/2019. Parathyroid Scan Nuclear Medicine 01/22/19 00:00 IMPRESSION: PERSISTENT ECTOPIC SESTAMIBI ACTIVITY IN THE MEDIASTINUM ABOUT 7 TO 10 CM INFERIOR TO THE THYROID GLAND. FINDINGS ARE WORRISOME FOR PARATHYROID ADENOMA Plan Discharge Plan: Patient is getting transferred to [facility] Time Spent: Greater than 30 Minutes
[2019-01-26 09:24] VITALS: BP 193/91
[2019-01-26] MEDS: CARVEDILOL 12.5 MG TABLET PO SCH (09:41)
[2019-01-26] MEDS: AMLODIPINE BESYLATE 10 MG TABLET PO SCH (09:41)
[2019-01-26] MEDS: DOCUSATE SODIUM 100 MG CAPSULE PO SCH (09:41)
[2019-01-26] MEDS: POTASSIUM CHLORIDE 10 MEQ CAPSULE.ER PO SCH (09:41)
[2019-01-26] MEDS: APIXABAN 5 MG TABLET PO SCH (09:41)
[2019-01-26] MEDS: FAMOTIDINE 20 MG TABLET PO SCH (09:41)
[2019-01-26] MEDS: ASPIRIN 81 MG TABLET, ENT COATED PO SCH (09:41)
== END 2019-01-26 11:00 | disposition short-term general hospital (02) | DRG 640 ==
LOC: ER 21:23 → EH 23:53 → 3W 01-14 01:11
PROVIDERS: ADMIT Emergency Medicine; ATTEND Emergency Medicine
DX: E83.52 Hypercalcemia (principal); G93.41 Metabolic encephalopathy; I63.89 Other cerebral infarction; N17.9 Acute kidney failure, unspecified; Z68.41 Body mass index [BMI] 40.0-44.9, adult; E87.0 Hyperosmolality and hypernatremia; D36.7 Benign neoplasm of other specified sites; Z78.1 Physical restraint status; E66.01 Morbid (severe) obesity due to excess calories; I25.10 Atherosclerotic heart disease of native coronary artery without angina pectoris; F17.210 Nicotine dependence, cigarettes, uncomplicated; E86.0 Dehydration; E78.5 Hyperlipidemia, unspecified; E11.22 Type 2 diabetes mellitus with diabetic chronic kidney disease; N18.3 Chronic kidney disease, stage 3 (moderate); I12.9 Hypertensive chronic kidney disease with stage 1 through stage 4 chronic kidney disease, or unspecified chronic kidney disease; E87.6 Hypokalemia; E83.42 Hypomagnesemia; Z79.899 Other long term (current) drug therapy; Z83.3 Family history of diabetes mellitus; Z82.49 Family history of ischemic heart disease and other diseases of the circulatory system
CPT/HCPCS: 36415; 70551; 71045; 76536; 76775; 77075; 78070; 80048; 80053; 81001; 82306; 82340; 82397; 82550; 82570; 82962; 83036; 83735; 83970; 84100; 84153; 84165; 84443; 84484; 85025; 85027; 93005; 93010; 93306; 96361; 99284; A9500; J0360; J0630; J1630; J1644; J1815; J3360; J3475; J3480; J3489; J3490; J7030; Q9969